=== PATIENT | female | born 1990 | race Caucasian/White ===

== ENCOUNTER → 2019-10-09 13:46 | Outpatient (CLI) | payer BC, SELFPAY ==
--- NOTE | ~2019-10-09 | US_ITS ---
EXAMINATION: US OB transvaginal DATE: 10/09/2019 14:28 INDICATION: First trimester dating TECHNIQUE: Real-time pelvic transabdominal and transvaginal ultrasound was performed. COMPARISON: None. FINDINGS: The uterus measures 9.5 x 5.2 x 4.7 cm. There is an intrauterine gestational sac. The mean sac diameter measures 7 mm. A yolk sac is identified. The pole is not yet identified, likely d ue to early gestation. The right ovary measures 3.4 x 1.8 x 4.0 cm. The left ovary measures 4.6 x 3.1 x 4.8 cm and contains a 3.2 cm cyst with thin internal septation. There is normal vascular flow in t he ovaries. There is no free fluid in the pelvis. IMPRESSION: 1. Intrauterine gestational sac with a mean sac diameter of 7 mm. pole not identified, likely d ue to early . Reviewed, dictated and finalized at location A. IMPRESSION: 1. Intrauterine gestational sac with a mean sac diameter of 7 mm. pole no t identified, likely due to early .
== END ==
PROVIDERS: PCP Family Medicine; Visit Provider Obstetrics & Gynecology Gynecology
DX: O26.841 Uterine size-date discrepancy, first trimester (principal)
CPT/HCPCS: 76817

== ENCOUNTER → 2019-10-31 12:31 | Outpatient (CLI) | payer BC, SELFPAY ==
--- NOTE | ~2019-10-31 | US_ITS ---
EXAMINATION: US OB <= 14 weeks fetus DATE: 10/31/2019 13:00 INDICATION: Gestational dating TECHNIQUE: Real-time transabdominal obstetric ultrasound. FINDINGS: 10/09/2019 The uterus measures 11.1 x 6.5 x 7.7 cm. There is an intrauterine gestational sac, with pole id entified. The crown rump length measures 1.85 cm, which correlates with a estimated gestational age of 8 weeks 2 days. heart tones are identified measuring 173 BPM. There is a 3.4 cm corpus lut eal cyst of the left ovary. IMPRESSION: 1. SL IUP with an EGA of 8 weeks, 2 days (EDC by current ultrasound of 06/09/2020). 2: 3.4 cm corpus luteal cyst of the left ovary. Reviewed, dictated and finalized at location B. IMPRESSION: 1. SL IUP with an EGA of 8 weeks, 2 days (EDC by current ultrasound of ). 2: 3.4 cm corpus luteal cyst of the left ovary.
== END ==
PROVIDERS: Visit Provider Obstetrics & Gynecology Gynecology
DX: O26.841 Uterine size-date discrepancy, first trimester (principal); Z3A.08 8 weeks gestation of pregnancy; N83.12 Corpus luteum cyst of left ovary
CPT/HCPCS: 76801

== ENCOUNTER → 2020-01-09 15:14 | Outpatient (CLI) | payer BC, SELFPAY ==
--- NOTE | ~2020-01-09 | US_ITS ---
EXAMINATION: US OB >= 14 weeks Fetus DATE: 01/09/2020 15:58 INDICATION: Second trimester anatomic survey TECHNIQUE: Real-time ultrasound of the pelvis was performed. COMPARISON: 10/31/2019 FINDINGS: There is a single living fetus in breech presentation. The placenta is anterior and 3.6 cm from the i nternal cervical os. heart rate is 141 beats per minute (bpm). cardiac activity and feta l movement are noted. The amniotic fluid index is subjectively normal. The following anatomy was identified as normal: 4 chamber heart 3 vessel cord cord insertion kidneys urinary bladder stomach spine diaphragm ventricles cisterna magna cerebellum The following biometric data were obtained: Biparietal diameter (BPD): 4.3 cm; head circumference (HC): 16.0 cm; abdominal circumference (AC): 13 .0 cm; femur length (FL): 2.6 cm. These measurements are concordant. Estimated weight is 241 g +/- 36 g, which correlates with the 57th percentile when 06/09/2020 is used as estimated date of delivery. As single measurements, these parameters are each equal to the following estimated gestational ages w ith ranges of +/- 2 standard deviations: BPD: 19 weeks 1 days ( 17 weeks 3 days - 20 weeks 6 days). HC: 18 weeks 6 days ( 17 weeks 3 days - 20 weeks 3 days). AC: 18 weeks 4 days ( 16 weeks 4 days - 20 weeks 4 days). FL: 18 weeks 1 days ( 16 weeks 6 days - 19 weeks 4 days). estimated gestational age based solely on measurements from this exam is 18 weeks 5 days +/- 1 weeks 2 days. IMPRESSION: 1. Single living fetus in breech presentation. 2. Estimated weight is 241 g +/- 36 g, which correlates with the 57th percentile when 06/09/2020 is used as estimated date of delivery. Reviewed, dictated and finalized at location A. IMPRESSION: 1. Single living fetus in breech presentation. 2. Estimated weight is 241 g +/- 36 g, which correlates with the 57th per centile when 06/09/2020 is used as estimated date of delivery.
== END ==
PROVIDERS: Visit Provider Obstetrics & Gynecology
DX: Z34.92 Encounter for supervision of normal pregnancy, unspecified, second trimester (principal); Z3A.18 18 weeks gestation of pregnancy
CPT/HCPCS: 76805

== ENCOUNTER 2020-01-22 19:48 | Observation (INO) | payer BC, SELFPAY ==
[2020-01-22 19:38] VITALS: BP 148/81; PULSE 93; RESP 20; TEMP 36.9; O2SAT 100
--- NOTE | 2020-01-22 19:47 | PC.NURSE ---
Pt was transported to OB department via wheelchair. Report given to ZARIA Mattson
--- NOTE | 2020-01-22 19:48 | OBADM ---
This patient, More Rush, admitted to the OB room OB Post 117 for observation. Patient/family oriented to hospital policies and general routines including ID bracelet, bed and alarms, visiting hours, pain management, procedures, bathroom and other care routines, personal items, smoking policy, room service/diet, and visiting hours. Patient/Family are encouraged to report perceived risks to care and to ask questions if they do not understand what they are told or what they should do.
[2020-01-22 20:01] VITALS: BP 137/89; PULSE 87; TEMP 36.8
[2020-01-22 20:15] VITALS: BP 119/77; PULSE 74
[2020-01-22 20:30] VITALS: BP 133/85; PULSE 84
[2020-01-22 20:43] LABS: Basophils Percent Auto 0.3 % (0.2-1.2); Eosinophils Absolute Auto 0.2 K/mm3 (0-0.3); Eosinophils Percent Auto 1.7 % (0-4.4); Hematocrit 30.2 % (37.0-47.0); Hemoglobin 10.5 g/dL (12.0-15.0); Immature Granulocyte Absolute 0.13 K/mm3 (0.00-0.031); Immature Granulocyte Percent A 1.2 % (0-0.5); Lymphocytes Absolute Auto 1.71 K/mm3 (0.9-3.2); Lymphocytes Percent Auto 16.2 % (18.3-44.2); Mean Corpuscular HGB Conc 34.8 g/dl (32-36); Mean Corpuscular Hemoglobin 30.3 pg (26-34); Mean Platelet Volume 9.9 fl (7.4-10.4); Monocytes Absolute Auto 0.6 K/mm3 (0.1-0.6); Monocytes Percent Auto 5.9 % (2.6-8.5); Neutrophils Absolute Auto 7.9 K/mm3 (1.3-6.7); Neutrophils Percent Auto 74.7 % (45.5-73.1); Platelet Count Result 213 k/mm3 (150-375); Red Blood Count 3.47 M/mm3 (4.2-5.4); Red Cell Distribution Width 13.7 % (11.5-14.5); White Blood Count 10.5 K/mm3 (4.5-10.0)
[2020-01-22 20:45] VITALS: BP 128/73; PULSE 73
[2020-01-22 20:57] LABS: Alanine Aminotransferase 14 U/L (4-35); Albumin Level 3.4 g/dL (3.5-5.1); Alkaline Phosphatase 55 U/L (38-126); Anion Gap 9 mmol/L (8-16); Aspartate Amino Transferase 17 U/L (14-36); Bilirubin,Total 0.1 mg/dL (0.2-1.3); Blood Urea Nitrogen 11 mg/dL (7-17); Calcium 8.5 mg/dL (8.4-10.2); Carbon Dioxide 23 mmol/L (22-30); Chloride 105 mmol/L (98-107); Estimated CRCL calculation 99 ml/min; Estimated Glomerular Filt Rate > 60; Glucose 102 mg/dL (65-105); Potassium 3.6 mmol/L (3.4-5.0); Sodium 137 mmol/L (137-145)
[2020-01-22 20:59] VITALS: BMI 28.3
[2020-01-22 21:00] VITALS: BP 117/79; PULSE 69
--- NOTE | 2020-01-22 21:34 | PC.NURSE ---
2030 - pt declined tylenol at this time.
--- NOTE | 2020-02-13 15:54 | P.PNOB_ITS ---
OB - Triage/Final Diagnosis Evaluation Laboratory results: Laboratory Tests 01/22/20 01/22/20 20:36 20:36 WBC 10.5 H RBC 3.47 L Hgb 10.5 L Hct 30.2 L MCV 87.0 MCH 30.3 MCHC 34.8 RDW 13.7 Plt Count 213 MPV 9.9 Immature Gran % (Auto) 1.2 H Neut % (Auto) 74.7 H Lymph % (Auto) 16.2 L [place] % (Auto) 5.9 Eos % (Auto) 1.7 Baso % (Auto) 0.3 Lymph # (Auto) 1.71 [place] # (Auto) 0.6 Eos # (Auto) 0.2 Baso # (Auto) 0.0 Abs Immat Gran (auto) 0.13 H Absolute Neuts (auto) 7.9 H Absolute Nucleated RBC 0.0 Nucleated RBC % 0.0 Sodium 137 Potassium 3.6 Chloride 105 Carbon Dioxide 23 Anion Gap 9 BUN 11 Creatinine 0.70 Estim Creat Clear Calc 99 Estimated GFR > 60 Glucose 102 Calcium 8.5 Total Bilirubin 0.1 L AST 17 ALT 14 Alkaline Phosphatase 55 Total Protein 7.0 Albumin 3.4 L Final Diagnosis (1) Musculoskeletal pain: Code(s): M79.18 - Myalgia, other site Status: Acute
== END 2020-01-22 21:30 | disposition home or self-care (01) ==
PROVIDERS: Admitting Provider Obstetrics & Gynecology; PCP Family Medicine; Visit Provider Obstetrics & Gynecology
DX: O26.892 Other specified pregnancy related conditions, second trimester (principal); M79.18 Myalgia, other site; Z3A.20 20 weeks gestation of pregnancy
CPT/HCPCS: 36415; 80053; 85025; G0378; G0379

== ENCOUNTER 2020-05-29 05:04 | Inpatient (IN) | payer BC, SELFPAY ==
[2020-05-29] VITALS (85 sets, daily range): BP systolic 102–139; BP diastolic 57–117; PULSE 54–194; RESP 18; TEMP 36.6–36.8; O2SAT 80–100; BMI 36.7
--- NOTE | 2020-05-29 05:25 | LDADM ---
This patient, More Rush, was admitted to Labor/Delivery/Recovery 105 on 05/29/20 at 05:04. Plans for labor, pain management and were discussed with patient. Patient/family oriented to hospital policies and general routines including ID bracelet, bed and alarms, visiting hours, pain management, procedures, bathroom and other care routines, personal items, smoking policy, room service/diet and guest tray routines, security routines, and visiting hours. Patient/Family are encouraged to report perceived risks to care and to ask questions if they do not understand what they are told or what they should do. See OBIX for further documentation.
[2020-05-29] MEDS: LACTATED RINGERS 1,000 ML 125 ML IV CONT ×2 (05:42→10:39)
[2020-05-29] MEDS: AMPICILLIN 2 GM/NS 100 ML 2 GM/100 ML BAG IVPB (05:42)
[2020-05-29] MEDS: OXYTOCIN 30 UNITS/NS 500 ML 30 UNITS/500 ML BAG IV CONT (05:43)
[2020-05-29 05:51] LABS: Basophils Percent Auto 0.3 % (0.2-1.2); Eosinophils Absolute Auto 0.1 K/mm3 (0-0.3); Eosinophils Percent Auto 0.8 % (0-4.4); Hematocrit 32.8 % (37.0-47.0); Hemoglobin 11.4 g/dL (12.0-15.0); Immature Granulocyte Absolute 0.14 K/mm3 (0.00-0.031); Immature Granulocyte Percent A 1.5 % (0-0.5); Lymphocytes Absolute Auto 1.17 K/mm3 (0.9-3.2); Lymphocytes Percent Auto 12.6 % (18.3-44.2); Mean Corpuscular HGB Conc 34.8 g/dl (32-36); Mean Corpuscular Hemoglobin 29.4 pg (26-34); Mean Corpuscular Volume 84.5 fl (80-100); Mean Platelet Volume 10.8 fl (7.4-10.4); Monocytes Absolute Auto 0.4 K/mm3 (0.1-0.6); Monocytes Percent Auto 4.4 % (2.6-8.5); Neutrophils Absolute Auto 7.5 K/mm3 (1.3-6.7); Neutrophils Percent Auto 80.4 % (45.5-73.1); Platelet Count Result 177 k/mm3 (150-375); Red Blood Count 3.88 M/mm3 (4.2-5.4); Red Cell Distribution Width 14.5 % (11.5-14.5); White Blood Count 9.3 K/mm3 (4.5-10.0)
--- NOTE | 2020-05-29 06:42 | WPDANESEPP ---
Anes - Eval Pre Procedure Procedure: Labor epidural Date/Time: 05/29/20 06:42 Surgeon: merly Preop Diagnosis: Abd pain with contractions Pre Op Diagnosis: IOL Patient Data Age: 30 Gender: F Height: 5 ft 3 in Weight: 94 kg Last Vital Signs Pulse 80 05/29/20 06:30 BP 129/77 05/29/20 06:30 Allergies Allergy/AdvReac Type Severity Reaction Status Date / Time No Known Allergies Allergy Verified 05/15/20 12:35 Home Medications Medication Instructions Recorded Confirmed Type aspirin [Adult Low Dose Aspirin] 81 mg PO DAILY 05/15/20 05/15/20 History ergocalciferol (vitamin D2) 1,250 mcg PO WEEKLY 05/15/20 05/15/20 History [Vitamin D2] prenat.vits,anatoliy,jiu-urge-puqpr 1 tablet PO DAILY 05/15/20 05/15/20 History [ #2] Laboratory Tests 05/29/20 05/29/20 05:40 05:40 WBC 9.3 K/mm3 K/mm3 (4.5-10.0) RBC 3.88 M/mm3 L M/mm3 (4.2-5.4) Hgb 11.4 g/dL L g/dL (12.0-15.0) Hct 32.8 % L % (37.0-47.0) MCV 84.5 fl fl (80-100) MCH 29.4 pg pg (26-34) MCHC 34.8 g/dl g/dl (32-36) RDW 14.5 % % (11.5-14.5) Plt Count 177 k/mm3 k/mm3 (150-375) MPV 10.8 fl H fl (7.4-10.4) Immature Gran % (Auto) 1.5 % H % (0-0.5) Neut % (Auto) 80.4 % H % (45.5-73.1) Lymph % (Auto) 12.6 % L % (18.3-44.2) [place] % (Auto) 4.4 % % (2.6-8.5) Eos % (Auto) 0.8 % % (0-4.4) Baso % (Auto) 0.3 % % (0.2-1.2) Lymph # (Auto) 1.17 K/mm3 K/mm3 (0.9-3.2) [place] # (Auto) 0.4 K/mm3 K/mm3 (0.1-0.6) Eos # (Auto) 0.1 K/mm3 K/mm3 (0-0.3) Baso # (Auto) 0.0 K/mm3 K/mm3 (0.0-0.1) Abs Immat Gran (auto) 0.14 K/mm3 H K/mm3 (0.00-0.031) Absolute Neuts (auto) 7.5 K/mm3 H K/mm3 (1.3-6.7) Absolute Nucleated RBC 0.0 K/mm3 K/mm3 (0.0-0.012) Nucleated RBC % 0.0 % % (0.0-0.2) RPR Pending Patient hx anesthesia problems: none Family hx anesthesia problems: none [facility] Past Medical History Medical History (Updated 05/29/20 @ 06:44 by Jayden Cooper CRNA) Gestational HTN Musculoskeletal pain Overweight (BMI 25.0-29.9) and not yet delivered Psoriasiform dermatitis Family History Family History Grandparent Type 2 diabetes mellitus Congestive heart failure Mother Hypertension Social History Social History Smoking status: Never smoker Second hand tobacco smoke exposure: No Substance use: never Spiritual care concerns: No Exam Day of Procedure 05/29/20 06:42 Patient weight: overweight Airway: Mallampati scale class II Neurological: alert and oriented
--- NOTE | 2020-05-29 09:21 | WPDOBADMIT ---
Obstetrics - Admit Note Admission Note: record reviewed. No pertinent additions to the history and/or any subsequent changes in the physical findings that are not consistent with the expected course of the were found. Additions to the history and/or subsequent changes in the physical findings follow. None.Here at 39 wks for MIL. cervix now 2/-2 AROM with clear fluid. FHTs reactive
[2020-05-29] MEDS: AMPICILLIN 1 GM/NS 50 ML 1 GM/50 ML BAG IVPB ×2 (09:45→13:40)
--- NOTE | 2020-05-29 15:49 | PM.OBPRVD ---
OB - Delivery Note Procedure Delivery date: 05/29/20 Procedure: events: Labor Induction Intrapartal events: None Induction method: AROM and per pitocin protocol Delivery monitor: external FHT and external uterine Route of delivery: Laceration Description: Periurethral and Perineal - 2nd Degree Delivery repair: vicryl (3-0) Specimen: No Quantitative Blood Loss (ml): 250 Anesthesia type: Epidural Disposition: floor Baby Date of : 05/29/20 Weeks of gestation at delivery: 39 gender: Male Weight (pounds): 7 Weight (ounces): 4 presentation: vertex position: Left Occiput Anterior Placenta delivery description: Spontaneous cord vessel description: 3 Vessels score one minute: 8 score five minutes: 9
--- NOTE | 2020-05-29 15:51 | PM.OBDSVD ---
DS: Admitting Diagnosis Admitting Diagnosis Admitting Diagnosis: IUP 39 wks for [facility] DS: Discharge Diagnosis Discharge Diagnosis (1) 39 weeks gestation of : Code(s): Z3A.39 - 39 weeks gestation of Status: Acute (2) (normal spontaneous vaginal delivery): Code(s): O80 - Encounter for full-term uncomplicated delivery Status: Acute OB - DS: Summary OB Procedures : Ultrasound OB Procedures Intrapartum: Spontaneous Vag Delivery OB Procedures: : None Peripartum Data Delivery Method: Natural Vaginal Laceration Description: Periurethral and Perineal - 2nd Degree complications: none Status at Discharge Functional status at discharge: independent ambulation Overall status at discharge: patient is progressing back to baseline Time Spent with Patient Time attestation: Total time spent providing and/or coordinating discharge services: DS: Data Data Completed and Pending Labs on day of discharge: Labs from last 24 hours 05/29/20 05/29/20 05/29/20 05:40 05:40 05:40 WBC 9.3 RBC 3.88 L Hgb 11.4 L Hct 32.8 L MCV 84.5 MCH 29.4 MCHC 34.8 RDW 14.5 Plt Count 177 MPV 10.8 H Immature Gran % (Auto) 1.5 H Neut % (Auto) 80.4 H Lymph % (Auto) 12.6 L [place] % (Auto) 4.4 Eos % (Auto) 0.8 Baso % (Auto) 0.3 Lymph # (Auto) 1.17 [place] # (Auto) 0.4 Eos # (Auto) 0.1 Baso # (Auto) 0.0 Abs Immat Gran (auto) 0.14 H Absolute Neuts (auto) 7.5 H Absolute Nucleated RBC 0.0 Nucleated RBC % 0.0 RPR Pending Blood Type O Positive Antibody Screen Negative Discharge Plan Discharge Attending physician on discharge: Arlene Best Discharging Clinician: Arlene Best Anticipated Discharge Date/Time: 05/31/20 15:52 Patient Disposition: Home, Self-Care Activity: may shower and pelvic rest Diet: regular Patient Instructions: Antibiotic Form Stand Alone Forms: General Discharge Information Follow-up/Referrals: Arlene Best MD [Physician] - 6 Weeks Discharge Medications: New norethindrone-e.estradiol-iron [ 05/05 (28)] 1 mg-20 mcg (21)/75 mg (7) tablet 1 tablet PO DAILY Qty: 84 RF: 1 Continued ergocalciferol (vitamin D2) [Vitamin D2] 1,250 mcg (50,000 unit) Capsule 1,250 mcg PO WEEKLY RF: 0 Discontinued Adult Low Dose Aspirin 81 mg Tablet 81 mg PO DAILY RF: 0 #2 Tablet 1 tablet PO DAILY RF: 0 Date of admission: 05/29/20 05:04 Primary Care Provider: Bushra Bailey Admitting Provider: Arlene Best Attending physician on admission: Arlene Best Condition: Stable
[2020-05-29] MEDS: OXYTOCIN 30 UNITS/NS 500 ML 30 UNITS/500 ML BAG 125 UNITS IV CONT (15:54)
[2020-05-29] MEDS: IBUPROFEN 600 MG TABLET PO (17:16)
[2020-05-29] MEDS: WITCH HAZEL 40 PADS 1 PAD TOPICAL (17:16)
[2020-05-29] MEDS: BENZOCAINE 20% AER SPR (*SP) 56 GM CAN 1 SPRAY TOPICAL (17:16)
[2020-05-29] MEDS: ACETAMINOPHEN 325 MG TABLET 650 MG PO ×2 (18:18→22:20)
--- NOTE | 2020-05-29 19:05 | PC.NURSE ---
05/29/20 at 1839. Patient transferred to post room # 282 in wheelchair. Pt transferred by labor nurse to bed from wheelchair. Support person present. Oriented to unit, room, information board, rooming in, admission packet and security measures. Patient verbalizes understanding.
[2020-05-29] MEDS: DOCUSATE SODIUM 100 MG CAPSULE PO (23:37)
[2020-05-30] MEDS: IBUPROFEN 600 MG TABLET PO ×2 (04:30→10:30)
[2020-05-30 04:51] LABS: Hematocrit 30.4 % (37.0-47.0); Hemoglobin 10.5 g/dL (12.0-15.0)
--- NOTE | 2020-05-30 09:42 | WPDANLDPN2 ---
Anes-Prog Note L&D Date/Time: 05/30/20 09:42 Comfortable throughout: labor and delivery Neuraxial method: epidural Epidural/Spinal procedure site: clean & non-tender Neuro status: Neuro function grossly intact. Cardiovascular status: normal Respiratory status: normal Airway patency: baseline Mental status: baseline Post-Op hydration status: normal Vital Signs: Last Vital Signs Temp 36.8 C 05/29/20 18:52 Pulse 73 05/29/20 18:52 Resp 18 05/29/20 18:52 BP 125/69 05/29/20 18:52 Pulse Ox 100 05/29/20 18:52 Pain score (VAS): 0 I/O: Intake & Output 05/29/20 05/30/20 05/30/20 23:59 07:59 15:59 Output Total 400 Balance -400 Post-procedural complaints: none Patient feedback: Patient satisfied with anesthetic care.
--- NOTE | 2020-05-30 09:44 | PM.OBPNVD ---
OB - PN: Subj Subjective Date/time seen: 05/30/20 09:44 Patient comments: no complaints and pain well controlled baby status: doing well [place] feeding status: exclusively bottle feeding OB - PN: Obj Data Labs CBC & Chem 7: 05/30/20 04:34 Labs: Laboratory Results - last 24 hr 05/30/20 04:34 Hgb 10.5 L Hct 30.4 L OB - PN A/P Plan day: 1 Plan: routine care, discharge home, follow up 6 weeks and other (05/05 for bc) Time Spent With Patient Time: Total time spent is greater than 50% in coordination of care (as documented) at patient's floor/unit and/or counseling patient: Exam : Bimanual exam- vagina & uterus: other (Uterus firm, nt @U)
[2020-05-30 10:30] VITALS: BP 117/71; PULSE 66; RESP 12; TEMP 36.5; O2SAT 98
[2020-05-30] MEDS: DOCUSATE SODIUM 100 MG CAPSULE PO (10:30)
[2020-05-31 08:49] LABS: Rapid Plasma Reagin Non-Reactive (NonReactive)
[2020-05-31 08:58] VITALS: BP 129/81; PULSE 83; RESP 18; TEMP 36.6; O2SAT 100
== END 2020-05-30 18:29 | disposition home or self-care (01) | DRG 807 ==
LOC: ANHLDR 15:52 → ANHOB2 18:56
PROVIDERS: Admitting Provider Obstetrics & Gynecology Gynecology; PCP Family Medicine; Visit Provider Obstetrics & Gynecology Gynecology
DX: O99.824 Streptococcus B carrier state complicating childbirth (principal); Z37.0 Single live birth; Z3A.39 39 weeks gestation of pregnancy; O70.1 Second degree perineal laceration during delivery; O99.72 Diseases of the skin and subcutaneous tissue complicating childbirth; L40.9 Psoriasis, unspecified; O71.82 Other specified trauma to perineum and vulva
CPT/HCPCS: 36415; 85014; 85018; 85025; 86592; 86850; 86900; 86901; A9270; J0290; J2590; J2795; J7120

== ENCOUNTER 2020-09-18 11:25 | Emergency (ER) | payer BC, SELFPAY ==
--- NOTE | ~2020-09-18 | US_ITS ---
US pelvic complete w TV DATE: 09/18/2020 15:15 INDICATION: Pelvic pain, rectal pain TECHNIQUE: Real-time imaging via transabdominal and transvaginal approaches COMPARISON: 09/18/2020 CT abdomen pelvis FINDINGS: The uterus measures 8.5 cm height, 5.2 cm transverse and 3.9 cm AP dimension. The central e ndometrial echo complex measures 8.6 mm AP dimension. Right ovary measures 4.3 x 3.4 x 3.7 cm, with vascular flow. There is an approximately 2.4 x 3.2 cm r ight ovarian cyst.. The left ovary measures 3.6 x 2.2 x 1.2 cm, with vascular flow. Small amount of free fluid in the cul-de-sac. IMPRESSION: 3.2 cm right ovarian cyst Minimal free fluid in the cul-de-sac Reviewed, dictated and finalized at Location A. Reviewed, dictated and finalized at location A.
--- NOTE | ~2020-09-18 | CT_ITS ---
EXAMINATION: CT abdomen pelvis w con EXAM DATE: 09/18/2020 12:40 INDICATION: Lower abdominal pain, rectal pain. TECHNIQUE: Spiral CT of the abdomen and pelvis was performed following intravenous injection of 100 m L Omnipaque 350. Axial, coronal and sagittal images of the abdomen and pelvis were reviewed. The do se-length product (DLP) for this examination was 755.25 mGy-cm. The exposure was tailored according to patient size (auto mA exposure control), and iterative reconstruction (ASIR) was used as additiona l dose reduction technique. There is no prior study for comparison. FINDINGS: The liver, spleen, adrenal glands and pancreas are unremarkable. There are gallstones with in an otherwise unremarkable gallbladder. No evidence of obstructive biliary disease. Portal and sp lenic veins are patent. Kidneys enhance symmetrically. There is no hydronephrosis. The uterus is unremarkable. The bladder is unremarkable. There is no retroperitoneal or pelvic lymphadenopathy. The appendix is normal. The stomach and small bowel are unremarkable. There is expected amount of c olonic stool. No free intraperitoneal gas. The heart is normal in size. There are no pericardial or pleural effusions. The lung bases are unremarkable. The bones are unremarkable. IMPRESSION: 1. No acute intra-abdominal findings. Reviewed, dictated and finalized at location A.
[2020-09-18 11:31] VITALS: BP 161/88; PULSE 88; RESP 20; TEMP 36.8; O2SAT 100
--- NOTE | 2020-09-18 11:51 | ED.ABDPAIN ---
HPI - Abdominal Pain General Chief Complaint: Abdominal Pain Stated Complaint: side pain Time Seen by Provider: 09/18/20 11:36 Source: patient and RN notes reviewed Mode of arrival: ambulatory Limitations: no limitations History of Present Illness HPI narrative: This is a 30 year old female who presents for evaluation of lower abdominal pain. She developed lower abdominal pain on . She describes her pain has constant pressure. She also reports feeling sharp rectal pain when she tries to have a bowel movement. Her last bowel movement was yesterday. She denies associated nausea, vomiting, rectal discharge, vaginal discharge, fever or chills. She also denies urinary complaints. Related Data Allergies Allergy/AdvReac Type Severity Reaction Status Date / Time No Known Allergies Allergy Verified 09/18/20 11:35 Review of Systems Review of Systems: All systems reviewed & are unremarkable except as noted in HPI and below Constitutional: Constitutional: Denies chills and Denies fever(s) Gastrointestinal: Gastrointestinal: Reports abdominal pain, Denies diarrhea, Denies nausea and Denies vomiting Genitourinary: Genitourinary: Denies hematuria, Denies nocturia, Denies genital lesions, Denies dysuria and Denies vaginal discharge [facility] Past Medical History Medical History Gestational HTN Musculoskeletal pain Overweight (BMI 25.0-29.9) Psoriasiform dermatitis Family History Family History Grandparent Congestive heart failure Hypertension Mother Hypertension Grandparent Diabetes mellitus Social History Social History Smoking status: Never smoker Second hand tobacco smoke exposure: No Substance use: never Gender identity (if verbalized by the patient): Female Spiritual care concerns: No Exam Const: General: no acute distress and alert Orientation/consciousness: patient oriented x3 Resp: Effort & Inspection: normal respiratory effort and no retractions Auscultation: clear to auscultation bilaterally Cardio: Rate: regular rate Rhythm: regular rhythm Heart sounds: no murmurs GI: GI Palp: Yes Soft to palpation, Yes Tenderness to palpation present (GI), No Guarding due to palpation present (GI) and No Rigid due to palpation Auscultation: normal bowel sounds Rectal Exam: No fecal impaction and hemorrhoids : Speculum Exam - Vagina: abnormal vaginal discharge yellow Speculum Exam - Cervix: Cervical os closed Bimanual exam- vagina & uterus: cervical motion tenderness Skin: General skin exam: normal color Rashes: no rashes Neuro: General: patient oriented x3, moves all extremities and CN's II-XI intact bilaterally Psych: Mental Status: mental status grossly normal Affect: normal affect Course Reevaluation(s) Reevaluation #1: PAtient reports pain has improved. she was found to have copious vaginal discharge with CMT. She will be treated for PID and ovarian cyst. She will follow up with her [employer] on Sunday Date: 09/18/20 Time: 16:44 Vital Signs Vital signs: Vital Signs Temperature 98.2 F 09/18/20 11:31 Pulse Rate 88 09/18/20 11:31 Respiratory Rate 20 09/18/20 11:31 Blood Pressure 161/88 H 09/18/20 11:31 Pulse Oximetry 100 09/18/20 11:31 Temperature 98.2 F 09/18/20 11:31 Pulse Rate 70 09/18/20 16:59 Respiratory Rate 20 09/18/20 16:59 Blood Pressure 148/88 H 09/18/20 16:59 Pulse Oximetry 99 09/18/20 16:59 MDM - Abdominal Pain Lab Data Attestation: I reviewed the patient's lab results. Result diagrams: 09/18/20 12:04 09/18/20 12:04 Labs: Lab Results 09/18/20 09/18/20 09/18/20 Range/Units 12:04 12:04 12:04 WBC 7.1 (4.5-10.0) K/mm3 RBC 4.32 (4.2-5.4) M/mm3 Hgb 12.4 (12.0-15.0) g/dL Hct 37.0 (37.0-47.0) % MCV
[2020-09-18] MEDS: ONDANSETRON INJ 4 MG/2 ML VIAL IV PUSH (12:02)
[2020-09-18] MEDS: HYDROmorphone HCL INJ (*CRX) 1 MG/ML SYR 0.5 MG IV PUSH (12:02)
[2020-09-18 12:12] LABS: Basophils Percent Auto 0.4 % (0.2-1.2); Eosinophils Absolute Auto 0.2 K/mm3 (0-0.3); Eosinophils Percent Auto 2.8 % (0-4.4); Hemoglobin 12.4 g/dL (12.0-15.0); Immature Granulocyte Absolute 0.02 K/mm3 (0.00-0.031); Immature Granulocyte Percent A 0.3 % (0-0.5); Lymphocytes Absolute Auto 1.62 K/mm3 (0.9-3.2); Lymphocytes Percent Auto 22.8 % (18.3-44.2); Mean Corpuscular HGB Conc 33.5 g/dl (32-36); Mean Corpuscular Hemoglobin 28.7 pg (26-34); Mean Corpuscular Volume 85.6 fl (80-100); Monocytes Absolute Auto 0.5 K/mm3 (0.1-0.6); Monocytes Percent Auto 6.9 % (2.6-8.5); Neutrophils Absolute Auto 4.7 K/mm3 (1.3-6.7); Neutrophils Percent Auto 66.8 % (45.5-73.1); Platelet Count Result 243 k/mm3 (150-375); Red Blood Count 4.32 M/mm3 (4.2-5.4); Red Cell Distribution Width 13.4 % (11.5-14.5); White Blood Count 7.1 K/mm3 (4.5-10.0)
[2020-09-18 12:18] LABS: Add Urine Microscopic? YES; Appearance Urine Cloudy (Clear); Bacteria Urine Trace /hpf; Bilirubin Urine Negative (Negative); Blood Urine Negative (Negative); Color Urine Straw (Yellow); Glucose Urine UA Negative (Negative); Ketones Urine Negative (Negative); Leukocyte Esterase Ur 2+ LEU/UL (Negative); Mucus Urine Rare /lpf; Nitrate Urine Negative (Negative); Protein Urine Negative (Negative); RBC Urine 0-2 /hpf (0-2); Specific Grav Ur 1.008 (1.001-1.035); Squamous Epithelial Cell Urine Many /hpf (Few); Urobilinogen Urine Negative mg/dL (<2.0); WBC Urine 0-3 /hpf
[2020-09-18 12:21] LABS: Alanine Aminotransferase 11 U/L (4-35); Albumin Level 3.8 g/dL (3.5-5.1); Alkaline Phosphatase 49 U/L (38-126); Anion Gap 8 mmol/L (8-16); Aspartate Amino Transferase 21 U/L (14-36); Bilirubin,Total 0.3 mg/dL (0.2-1.3); Blood Urea Nitrogen 15 mg/dL (7-17); Calcium 8.8 mg/dL (8.4-10.2); Carbon Dioxide 22 mmol/L (22-30); Chloride 107 mmol/L (98-107); Estimated CRCL calculation 82 ml/min; Estimated Glomerular Filt Rate > 60; Glucose 94 mg/dL (65-105); Lipase 44 U/L (23-300); Potassium 3.9 mmol/L (3.4-5.0); Sodium 137 mmol/L (137-145)
[2020-09-18] MEDS: cefTRIAXone 1 GM VIAL 0.5 GM IM (14:13)
[2020-09-18 14:15] VITALS: BP 151/90; PULSE 67; RESP 20; O2SAT 100
[2020-09-18 16:59] VITALS: BP 148/88; PULSE 70; RESP 20; O2SAT 99
== END 2020-09-18 17:01 | disposition home or self-care (01) ==
PROVIDERS: Emergency Provider General Practice; PCP Family Medicine
DX: N73.0 Acute parametritis and pelvic cellulitis (principal); N83.201 Unspecified ovarian cyst, right side; E66.3 Overweight; Z68.32 Body mass index [BMI] 32.0-32.9, adult
CPT/HCPCS: 36415; 74177; 76830; 76856; 80053; 81001; 81025; 83690; 85025; 87070; 87147; 87491; 87591; 87808; 96372; 96374; 99284; J0696; J1170; J2405; Q9967

== ENCOUNTER 2020-12-28 01:47 | Emergency (ER) | payer BC, SELFPAY ==
--- NOTE | ~2020-12-28 | CT_ITS ---
EXAMINATION: CTA chest PE protocol DATE: 12/28/2020 03:58 INDICATION: Shortness of breath, COVID 19 positive TECHNIQUE: Computed tomography angiography (CTA) of the chest was performed with 100 mL Omnipaque-350 intravenous contrast timed to evaluate the pulmonary arteries. Coronal maximum intensity projection 3D-reconstructions were created by the technologist. The dose-length product (DLP) was 357.62 mGy-cm. Automated exposure control and iterative reconstruction technique were employed. COMPARISON: None. FINDINGS: Respiratory motion artifact slightly limits the examination. The pulmonary arteries are wel l-opacified. No pulmonary embolism is identified. There is mild dependent atelectasis. The lungs are free of focal airspace opacities. There is no pleural effusion or pneumothorax. No pathologically enl arged thoracic lymph nodes are identified. The heart size is normal. Stones are present in the nondis tended gallbladder. IMPRESSION: 1. No pulmonary embolism or acute cardiopulmonary abnormality. 2. Cholelithiasis. Reviewed, dictated and finalized at location A.
[2020-12-28 01:51] VITALS: BP 137/88; PULSE 100; RESP 16; TEMP 35.7; O2SAT 100
--- NOTE | 2020-12-28 02:29 | ECG_ITS ---
Measurements Intervals Theodore Rate: 87 P: 50 [place]: 128 QRS: 17 QRSD: 90 T: 44 QT: 347 QTc: 419 Interpretive Statements SINUS RHYTHM BASELINE ARTIFACT- I, II, AVR, AVF NORMAL ECG Electronically Signed On 12-28-2020 6:11:26 CDT by Yves Saldana D.O.
--- NOTE | 2020-12-28 02:46 | ED.GENADULT ---
HPI - General Adult General Chief complaint: Shortness of Breath/Dyspnea Stated complaint: covid + SOB and HTN Time Seen by Provider: 12/28/20 02:20 History of Present Illness HPI narrative: Patient 30-year-old female presents the emergency department with chief complaint of shortness of breath. The patient reports she was diagnosed with COVID-19 on of last week the patient reports that she started having some body aches and some cough and reports that this evening she suddenly had sudden onset of some shortness of breath patient states is improved since he arrived in the emergency department reports that her fevers have been under control denies vomiting denies diarrhea Related Data Allergies Allergy/AdvReac Type Severity Reaction Status Date / Time No Known Allergies Allergy Verified 12/28/20 02:09 Review of Systems Review of Systems: A 10 system review of systems was completed on the patient and is negative except for what is stated in the HPI. Nursing and ancillary documentation was reviewed. PMFSH Past Medical History Medical History Gestational HTN Musculoskeletal pain Overweight (BMI 25.0-29.9) Psoriasiform dermatitis Family History Family History Grandparent Congestive heart failure Hypertension Mother Hypertension Grandparent Diabetes mellitus Social History Social History Smoking status: Never smoker Second hand tobacco smoke exposure: No Substance use: never Gender identity (if verbalized by the patient): Female Spiritual care concerns: No Exam Narrative: GENERAL: Well-appearing, well-nourished, and in no acute distress. HEAD: Normocephalic, atraumatic. EYES: PERRLA and EOMI. ENT: Nares clear, no rhinorrhea or epistaxis. Mucous membranes moist. NECK: Supple. CHEST: Clear to auscultation. No respiratory distress. HEART: Regular rate and rhythm. No murmur heard. Normal peripheral pulses. ABDOMEN: Soft, nontender, nondistended, normal active bowel sounds. EXTREMITIES: Normal range of motion. No edema. SKIN: Warm, dry, no rash. NEURO: No focal deficits. Alert and oriented x3. PSYCH: Normal mood and affect. Course Vital Signs Vital signs: Vital Signs Temperature 35.7 C L 12/28/20 01:51 Pulse Rate 100 12/28/20 01:51 Respiratory Rate 16 12/28/20 01:51 Blood Pressure 137/88 12/28/20 01:51 Pulse Oximetry 100 12/28/20 01:51 Temperature 35.7 C L 12/28/20 01:51 Pulse Rate 92 12/28/20 04:23 Respiratory Rate 19 12/28/20 04:23 Blood Pressure 120/67 12/28/20 04:23 Pulse Oximetry 99 12/28/20 04:23 Medical Decision Making Vital Signs Vital Signs: Vital Signs Temperature 35.7 C L 12/28/20 01:51 Pulse Rate 100 12/28/20 01:51 Respiratory Rate 16 12/28/20 01:51 Blood Pressure 137/88 12/28/20 01:51 Pulse Oximetry 100 12/28/20 01:51 Temperature 35.7 C L 12/28/20 01:51 Pulse Rate 92 12/28/20 04:23 Respiratory Rate 19 12/28/20 04:23 Blood Pressure 120/67 12/28/20 04:23 Pulse Oximetry 99 12/28/20 04:23 Lab Data Result diagrams: 12/28/20 02:50 12/28/20 02:50 Labs: Lab Results 12/28/20 12/28/20 12/28/20 Range/Units 02:50 02:50 02:50 WBC 5.3 (4.5-10.0) K/mm3 RBC 4.84 (4.2-5.4) M/mm3 Hgb 14.2 (12.0-15.0) g/dL Hct 41.5 (37.0-47.0) % MCV 85.7 (80-100) fl MCH 29.3 (26-34) pg MCHC 34.2 (32-36) g/dl RDW 12.7 (11.5-14.5) % Plt Count 241 (150-375) k/mm3 MPV 9.5 (7.4-10.4) fl Immature Gran % (Auto) 0.4 (0-0.5) % Neut % (Auto) 62.2 (45.5-73.1) % Lymph % (Auto) 26.3 (18.3-44.2) % [place] % (Auto) 8.1 (2.6-8.5) % Eos % (Auto) 2.6 (0-4.4) % Baso % (Auto) 0.4 (0.2-1.2) % Lymph # (Auto) 1.40 (0.9-3.2) K/mm3 [place] # (Au
[2020-12-28 02:59] LABS: Basophils Percent Auto 0.4 % (0.2-1.2); Eosinophils Absolute Auto 0.1 K/mm3 (0-0.3); Eosinophils Percent Auto 2.6 % (0-4.4); Hematocrit 41.5 % (37.0-47.0); Hemoglobin 14.2 g/dL (12.0-15.0); Immature Granulocyte Absolute 0.02 K/mm3 (0.00-0.031); Immature Granulocyte Percent A 0.4 % (0-0.5); Lymphocytes Percent Auto 26.3 % (18.3-44.2); Mean Corpuscular HGB Conc 34.2 g/dl (32-36); Mean Corpuscular Hemoglobin 29.3 pg (26-34); Mean Corpuscular Volume 85.7 fl (80-100); Mean Platelet Volume 9.5 fl (7.4-10.4); Monocytes Absolute Auto 0.4 K/mm3 (0.1-0.6); Monocytes Percent Auto 8.1 % (2.6-8.5); Neutrophils Absolute Auto 3.3 K/mm3 (1.3-6.7); Neutrophils Percent Auto 62.2 % (45.5-73.1); Platelet Count Result 241 k/mm3 (150-375); Red Blood Count 4.84 M/mm3 (4.2-5.4); Red Cell Distribution Width 12.7 % (11.5-14.5); White Blood Count 5.3 K/mm3 (4.5-10.0)
[2020-12-28 03:08] LABS: Lactic Acid Reflex 0.8 mmol/L (0.7-2.1)
[2020-12-28 03:09] LABS: Alanine Aminotransferase 15 U/L (4-35); Albumin Level 4.1 g/dL (3.5-5.1); Alkaline Phosphatase 79 U/L (38-126); Anion Gap 10 mmol/L (8-16); Aspartate Amino Transferase 22 U/L (14-36); Bilirubin,Total 0.5 mg/dL (0.2-1.3); Blood Urea Nitrogen 17 mg/dL (7-17); Calcium 9.1 mg/dL (8.4-10.2); Carbon Dioxide 21 mmol/L (22-30); Chloride 106 mmol/L (98-107); Estimated CRCL calculation 83 ml/min; Estimated Glomerular Filt Rate > 60; Glucose 111 mg/dL (65-110); Potassium 3.8 mmol/L (3.4-5.0); Sodium 137 mmol/L (137-145)
[2020-12-28 03:17] LABS: INR 0.9; Partial Thromboplastin Time 31.1 SECONDS (22.3-36.8); Prothrombin Time 11.9 Seconds (11.1-14.7)
[2020-12-28 03:21] LABS: NT Pro B Type Natriuretic Pept 55 pg/mL (5-100); Troponin I < 0.012 ng/mL (0.000-0.034)
[2020-12-28] MEDS: ALBUTEROL SULFATE (*SP) INHALER 2 PUFF INHALATION (03:39)
--- NOTE | 2020-12-28 03:39 | PC.NURSE ---
Pt to CT via stretcher at this time.
[2020-12-28 04:00] VITALS: PULSE 91; RESP 16; O2SAT 100
[2020-12-28 04:11] LABS: Add Urine Microscopic? YES; Appearance Urine Cloudy (Clear); Bacteria Urine Trace /hpf; Bilirubin Urine Negative (Negative); Color Urine Yellow (Yellow); Glucose Urine UA Negative (Negative); Ketones Urine Negative (Negative); Leukocyte Esterase Ur 2+ LEU/UL (Negative); Mucus Urine Rare /lpf; Nitrate Urine Negative (Negative); Protein Urine Negative (Negative); RBC Urine 0-2 /hpf (0-2); Specific Grav Ur 1.018 (1.001-1.035); Squamous Epithelial Cell Urine Many /hpf (Few); Urobilinogen Urine Negative mg/dL (<2.0); WBC Urine 16-20 /hpf
[2020-12-28 04:12] LABS: Blood Urine Negative (Negative)
[2020-12-28 04:23] VITALS: BP 120/67; PULSE 92; RESP 19; O2SAT 99
[2020-12-28 04:50] VITALS: PULSE 87; RESP 17; O2SAT 100
== END 2020-12-28 04:51 | disposition home or self-care (01) ==
PROVIDERS: Emergency Provider Emergency Medicine; PCP Family Medicine
DX: U07.1 COVID-19 (principal); R06.00 Dyspnea, unspecified; R52 Pain, unspecified
CPT/HCPCS: 36415; 71275; 80053; 81001; 81025; 83605; 83880; 84484; 85025; 85610; 85730; 87086; 87088; 87147; 93005; 99284; A9270; Q9967

== ENCOUNTER → 2021-08-16 14:50 | Outpatient (CLI) | payer BC, SELFPAY ==
--- NOTE | ~2021-08-16 | US_ITS ---
US breast RT limited DATE: 08/16/2021 15:05 INDICATION: Breast pain near junction of the lateral chest and breast TECHNIQUE: Targeted ultrasound at area of clinical complaint at the junction of the lateral right mid breast and chest wall at 9:00 11 cm from the nipple COMPARISON: None FINDINGS: No suspicious mass or shadowing, cyst or other significant sonographic finding is noted. IMPRESSION: BI-RADS Category 1: Negative Reviewed, dictated and finalized at Location A. Reviewed, dictated and finalized at location A.
== END ==
PROVIDERS: PCP Family Medicine; Visit Provider Nurse Practitioner
DX: N64.4 Mastodynia (principal)
CPT/HCPCS: 76642

== ENCOUNTER 2021-12-23 01:20 | Emergency (ER) | payer BC, SELFPAY ==
--- NOTE | ~2021-12-23 | XR_ITS ---
EXAMINATION: XR chest 2V DATE: 12/23/2021 02:17 INDICATION: Shortness of breath. Chest pressure. TECHNIQUE: Frontal and lateral views of the chest were obtained. COMPARISON: Chest CT 12/28/2020 FINDINGS: The chest demonstrates clear lungs without pneumonia, pleural effusion, or pneumothorax. Th e heart size is normal. IMPRESSION: 1. No acute cardiopulmonary disease. Reviewed, dictated and finalized at location A.
[2021-12-23 01:22] VITALS: BP 151/88; PULSE 89; RESP 18; TEMP 36.5; O2SAT 100
--- NOTE | 2021-12-23 01:30 | ECG_ITS ---
Measurements Intervals [place] Rate: 88 P: 66 WV: 119 QRS: 43 QRSD: 92 T: 49 QT: 348 QTc: 422 Interpretive Statements SINUS RHYTHM WITH SHORT [place] INTERVAL BORDERLINE ST ABNORMALITY- ANTERIOR LEADS BORDERLINE ECG COMPARED TO ECG 12/28/2020 02:47:[address] ABNORMALITY- ANTERIOR LEADS Electronically Signed On 12-23-2021 7:02:22 CDT by Yves Saldana D.O.
--- NOTE | 2021-12-23 01:46 | ED.SOB ---
HPI - SOB/Dyspnea General Chief Complaint: Shortness of Breath/Dyspnea <ELIDA Ness Last Filed: 12/23/21 03:46> Stated Complaint: SOB <ELIDA Ness Last Filed: 12/23/21 03:46> Time Seen by Provider: 12/23/21 01:30 <ELIDA Ness Last Filed: 12/23/21 03:46> Source: patient <ELIDA Ness Last Filed: 12/23/21 03:46> Mode of arrival: ambulatory <ELIDA Ness Last Filed: 12/23/21 03:46> Limitations: no limitations <ELIDA Ness Last Filed: 12/23/21 03:46> History of Present Illness HPI Narrative: Patient is a 31-year-old female who presents the ED with report of chest pain and shortness of breath. Patient reports having chest pressure, feeling as though something sitting on her chest since Sunday. States chest pressure seems less noticeable when she is up and moving around, but she woke up this morning and felt like it was worse, prompting her presentation. She also reports having shortness of breath, described as though the heaviness on her chest prevents her from taking a deep breath. Denies significant pain with taking deep breath, but feels as though she just cannot. Denies any recent cough, congestion, rhinorrhea, sore throat, fevers, BLE pain or edema, recent long distance travel. Reports COVID last November. No history of hypertension, hyperlipidemia, diabetes, smoking, family history of CAD. <ELIDA Ness Last Filed: 12/23/21 03:46> Related Data Allergies/Adverse Reactions: Allergies Allergy/AdvReac Type Severity Reaction Status Date / Time No Known Allergies Allergy Verified 12/23/21 01:26 <ELIDA Ness Last Filed: 12/23/21 03:46> Review of Systems Review of Systems: CONSTITUTIONAL: Denies fever, chills, or sweats. ENT: Denies rhinorrhea, congestion, sore throat. CARDIOVASCULAR: Reports chest pressure. Denies palpitations or edema. RESPIRATORY: Reports difficulty taking deep breath. Denies cough, pain with taking deep breath. GASTROINTESTINAL: Denies abdominal pain, nausea, vomiting. MUSCULOSKELETAL: Denies BLE pain. <Tasia Powers PA-C - Last Filed: 12/23/21 03:46> All systems reviewed & are unremarkable except as noted in HPI and below <Tasia Powers PA-C - Last Filed: 12/23/21 03:46> PMFSH Past Medical History Medical History: Medical History (Updated 12/23/21 @ 03:37 by Tasia Powers PA-C) Gestational HTN Musculoskeletal pain Overweight (BMI 25.0-29.9) Psoriasiform dermatitis Sinusitis <Tasia Powers PA-C - Last Filed: 12/23/21 03:46> Surgical History Surgical History: Surgical History (Updated 12/23/21 @ 02:16 by Tasia Powers PA-C) History of knee surgery <Tasia Powers PA-C - Last Filed: 12/23/21 03:46> Family History Family History: Family History Grandparent Congestive heart failure Hypertension Mother Hypertension Grandparent Diabetes mellitus <Tasia Powers PA-C - Last Filed: 12/23/21 03:46> Social History Social History: Social History Smoking status: Never smoker Second hand tobacco smoke exposure: No Substance use: never Gender identity (if verbalized by the patient): Female Spiritual care concerns: No <Tasia Powers PA-C - Last Filed: 12/23/21 03:46> Exam Narrative: GENERAL: Well appearing, well-nourished, non-toxic, in no acute distress. HEAD: Normocephalic, atraumatic. NECK: Supple. No adenopathy, no masses. RESPIRATORY: Airway patent, respirations nonlabored. No tachypnea. Clear to auscultation bilaterally, no rales, rhonchi, wheezing. CARDIOVASCULAR: Regular rate and rhythm without murmurs, rubs, or gallops. Peripheral pulses 2+ and equal bilaterally. ABDOMINAL: Soft, nontender, nondi
[2021-12-23 02:17] LABS: Basophils Percent Auto 0.5 % (0.2-1.2); Eosinophils Absolute Auto 0.1 K/mm3 (0-0.3); Eosinophils Percent Auto 1.6 % (0-4.4); Hematocrit 37.1 % (37.0-47.0); Hemoglobin 12.8 g/dL (12.0-15.0); Immature Granulocyte Absolute 0.02 K/mm3 (0.00-0.031); Immature Granulocyte Percent A 0.3 % (0-0.5); Lymphocytes Absolute Auto 1.59 K/mm3 (0.9-3.2); Mean Corpuscular HGB Conc 34.5 g/dl (32-36); Mean Corpuscular Hemoglobin 29.8 pg (26-34); Mean Corpuscular Volume 86.5 fl (80-100); Mean Platelet Volume 9.7 fl (7.4-10.4); Monocytes Absolute Auto 0.5 K/mm3 (0.1-0.6); Monocytes Percent Auto 7.5 % (2.6-8.5); Neutrophils Absolute Auto 4.2 K/mm3 (1.3-6.7); Neutrophils Percent Auto 65.1 % (45.5-73.1); Platelet Count Result 248 k/mm3 (150-375); Red Blood Count 4.29 M/mm3 (4.2-5.4); White Blood Count 6.4 K/mm3 (4.5-10.0)
[2021-12-23 02:26] LABS: Lipase 64 U/L (23-300)
[2021-12-23 02:27] LABS: Alanine Aminotransferase 16 U/L (6-35); Alkaline Phosphatase 74 U/L (38-126); Anion Gap 8 mmol/L (8-16); Aspartate Amino Transferase 18 U/L (14-36); Bilirubin,Total 0.4 mg/dL (0.2-1.3); Blood Urea Nitrogen 21 mg/dL (7-17); Calcium 8.9 mg/dL (8.4-10.2); Carbon Dioxide 19 mmol/L (22-30); Chloride 110 mmol/L (98-107); Estimated CRCL calculation 70 ml/min; Estimated Glomerular Filt Rate > 60; Glucose 111 mg/dL (65-110); Potassium 3.5 mmol/L (3.4-5.0); Sodium 137 mmol/L (137-145)
[2021-12-23 02:39] LABS: Troponin I < 0.012 ng/mL (0.000-0.034)
[2021-12-23 02:52] LABS: D Dimer 0.42 ug/mL (<0.48)
[2021-12-23 03:51] VITALS: PULSE 88; RESP 18; O2SAT 98
== END 2021-12-23 03:52 | disposition home or self-care (01) ==
PROVIDERS: Physician Assistant; Emergency Provider Emergency Medicine; PCP Family Medicine
DX: R07.89 Other chest pain (principal); Z86.16 Personal history of COVID-19; R94.31 Abnormal electrocardiogram [ECG] [EKG]
CPT/HCPCS: 36415; 71046; 80053; 83690; 84484; 85025; 85380; 93005; 99284

== ENCOUNTER → 2022-04-25 15:42 | Outpatient (CLI) | payer BC, SELFPAY ==
--- NOTE | ~2022-04-25 | US_ITS ---
EXAMINATION: US pelvic complete DATE: 04/25/2022 16:02 INDICATION: Left lower quadrant abdominal pain. TECHNIQUE: Multiple transabdominal sonographic images of the pelvis were obtained. COMPARISON: Ultrasound pelvis 09/18/2020 FINDINGS: The uterus measures 8.3 x 3.1 x 4.8 cm. There is no free fluid in the pelvis. The endometrial complex measures 5 mm in thickness. The right ovary measures 3.8 x 1.8 x 2.8 cm. The left ovary measures 3.2 x 2.5 x 3.2 cm. There is normal vascular flow in the ovaries. IMPRESSION: 1. Normal pelvis. Reviewed, dictated and finalized at location A. 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 Normal pelvis.
== END ==
PROVIDERS: PCP Family Medicine; Visit Provider Nurse Practitioner
DX: R10.2 Pelvic and perineal pain (principal)
CPT/HCPCS: 76856

== ENCOUNTER 2022-06-14 15:16 | Emergency (ER) | payer BC, SELFPAY ==
[2022-06-14 15:22] VITALS: BP 152/79; PULSE 88; RESP 18; TEMP 36.7; O2SAT 100
--- NOTE | 2022-06-14 15:52 | ED.URI ---
HPI - URI/Sore Throat General Chief Complaint: Upper Respiratory Infection Stated Complaint: Runny Nose,Sore Throat,Bilateral Ear Irritation, Time Seen by Provider: 06/14/22 15:30 Source: patient Mode of arrival: ambulatory Limitations: no limitations History of Present Illness HPI Narrative: Patient presents today complaining of a 5 day history of cough, congestion, rhinorrhea, sore throat, postnasal drip. Cough and sore throat are much worse at night. She currently rates her pain 5/10 and has been taking [id number] cough medicine and Sudafed without much relief. Denies shortness of breath. Denies history of asthma or COPD. She is a nonsmoker. Related Data Allergies Allergy/AdvReac Type Severity Reaction Status Date / Time No Known Allergies Allergy Verified 06/14/22 15:21 Review of Systems Review of Systems: CONSTITUTIONAL: Denies body aches, fever, chills, or sweats. EYES: Denies visual changes, redness, or discharge. ENT: Denies otalgia.+ rhinorrhea, congestion, sore throat, postnasal drip CARDIOVASCULAR: Denies chest pain, palpitations, or edema. RESPIRATORY: Denies dyspnea.+ cough GASTROINTESTINAL: Denies abdominal pain, nausea, vomiting, or diarrhea. GENITOURINARY: Denies dysuria or hematuria. SKIN: Denies rash, itching, or wounds. MUSCULOSKELETAL: Denies back pain, joint pain, or myalgia. NEUROLOGIC: Denies headache, numbness, tingling, or weakness. PSYCH: Denies depression or anxiety. [facility] Past Medical History Medical History Anxiety Gestational HTN Musculoskeletal pain Overweight (BMI 25.0-29.9) Psoriasiform dermatitis Sinusitis Surgical History Surgical History History of knee surgery Family History Family History Grandparent Congestive heart failure Hypertension Mother Hypertension Grandparent Diabetes mellitus Social History Social History Smoking status: Never smoker Second hand tobacco smoke exposure: No Substance use: never Lack of Transportation: No Lack of Food: Never True Current Housing: I Have Housing Concerned About Future Housing: No Difficulty Paying Gas/Electric Bills: No Difficulty Paying for Meds: No Currently Unemployed: No Education: Bachelor's Degree Difficulty w/ Childcare or Family Care: No Living arrangements: with family Occupation/Education: occupation Gender identity (if verbalized by the patient): Female Sexual Orientation (if Verbalized by the Patient): Straight or Heterosexual Spiritual care concerns: No Comments Reviewed Exam Narrative: GENERAL: Well-appearing, well-nourished, and in no acute distress. HEAD: Normocephalic, atraumatic. EYES: EOMI. No redness or drainage. Conjunctivae normal. ENT: Mucous membranes pink and moist. Nares congested. No rhinorrhea. TMs normal bilaterally. Throat normal with moderate white postnasal drainage. Uvula midline. NECK: Normal AROM. Supple. No lymphadenopathy. CHEST: No respiratory distress. Clear to auscultation. HEART: Regular rate and rhythm. No murmur appreciated. Normal peripheral pulses. EXTREMITIES: Normal range of motion. No edema. SKIN: Warm, dry, no rash. Capillary refill normal. Normal skin turgor. NEURO: No focal deficits. Alert and oriented x3. Gait steady. PSYCH: Normal affect. No signs of depression or anxiety. Course Course Level of Care: Express Care Visit Vital Signs Vital signs: Vital Signs Temperature 98.1 F 06/14/22 15:22 Pulse Rate 88 06/14/22 15:22 Respiratory Rate 18 06/14/22 15:22 Blood Pressure 152/79 H 06/14/22 15:22 Pulse Oximetry 100 06/14/22 15:22 Oxygen Delivery Room Air 06/14/22 15:22 Temperature 98.1 F 06/14/22 15:22 Pulse Rate 88 06/14/22 15:22 Respirato
== END 2022-06-14 15:59 | disposition home or self-care (01) ==
PROVIDERS: Emergency Provider Nurse Practitioner; PCP Family Medicine
DX: J06.9 Acute upper respiratory infection, unspecified (principal)
CPT/HCPCS: 87081; 87880; 99213; G0463

== ENCOUNTER → 2022-10-24 12:51 | Outpatient (CLI) | payer BC, SELFPAY ==
--- NOTE | ~2022-10-24 | US_ITS ---
Pelvic ultrasound. Clinical History: Pelvic pain Technique: Realtime transabdominal and transvaginal scanning of the pelvis was performed. Color flow Doppler and Doppler spectral analysis were performed. Findings: The uterus is anteverted. The endometrial stripe has a thickness of 4 mm. No focal mass is identified. The right ovary measures 3.0 x 2.1 x 4.1 cm. No significant right ovarian or adnexal mass is seen. The left ovary measures 3.2 x 1.7 x 3.7 cm. No significant left ovarian or adnexal mass is seen. There is no evidence of free fluid in the cul de sac. Impression: Unremarkable pelvic ultrasound. Reviewed, dictated and finalized at location . Impression: Unremarkable pelvic ultrasound.
== END ==
PROVIDERS: PCP Family Medicine; Visit Provider Obstetrics & Gynecology Gynecology
DX: R10.2 Pelvic and perineal pain (principal)
CPT/HCPCS: 76830

== ENCOUNTER → 2022-11-16 15:13 | Outpatient (CLI) | payer BC, SELFPAY ==
--- NOTE | ~2022-11-16 | XR_ITS ---
EXAMINATION: XR hand LT 2V DATE: 11/16/2022 15:23 INDICATION: Pain to the third digit of the left hand2 TECHNIQUE: Posteroanterior and lateral views of the left hand were obtained. COMPARISON: None. FINDINGS: Alignment is normal. No fracture. Joint spaces are normal. No erosions or periosteal reaction. Soft t issue swelling about the third digit. IMPRESSION: 1. Soft tissue swelling at the third digit of the left hand. No osseous abnormality. Reviewed, dictated and finalized at location A. IMPRESSION: 1. Soft tissue swelling at the third digit of the left hand. No osseous abnorma lity.
== END ==
PROVIDERS: PCP Dermatology; Visit Provider Physician Assistant
DX: M79.645 Pain in left finger(s) (principal); M79.89 Other specified soft tissue disorders
CPT/HCPCS: 73120

== ENCOUNTER 2022-12-27 00:18 | Day surgery (SDC) | payer BC, SELFPAY ==
[2022-12-21 11:05] VITALS: BMI 27.3
[2022-12-27 09:07] VITALS: BP 137/95; PULSE 86; RESP 20; TEMP 36.4; O2SAT 100
[2022-12-27 09:12] VITALS: BMI 26.7
[2022-12-27] MEDS: LACTATED RINGERS 1,000 ML 150 ML IV CONT (09:23)
--- NOTE | 2022-12-27 09:37 | WPDANESEPPF ---
Anes - Initial Pre Proc Eval Procedure: Operation Date: 12/27/22 10:30 Proposed Procedures p Colonoscopy - Bebeto Bower MD Date/Time: 12/27/22 09:37 Surgeon: Bebeto Bower MD Pre Op Diagnosis: Diarrhea, unspecified Patient Data Age: 32 Gender: F Height: 1.6 m Weight: 68.5 kg Last Vital Signs Temp 36.4 C L 12/27/22 09:07 Pulse 86 12/27/22 09:07 Resp 20 12/27/22 09:07 BP 137/95 H 12/27/22 09:07 Pulse Ox 100 12/27/22 09:07 O2 Del Method Room Air 12/27/22 09:07 Allergies Allergy/AdvReac Type Severity Reaction Status Date / Time No Known Allergies Allergy Verified 12/27/22 09:06 Home Medications Medication Instructions Recorded Confirmed Type alprazolam 0.5 mg tablet 0.5 mg PO BID PRN anxiety #60 tabs 12/08/22 12/21/22 Rx cholestyramine (with sugar) 4 gram See Rx Instructions .Route 12/11/22 12/21/22 Rx oral powder .COMPLEX #378 grams diphenhydramine 25 1 tablet PO QHS PRN Insomnia 12/13/22 12/21/22 History mg-acetaminophen 500 mg tablet (Tylenol PM Extra Strength) melatonin 10 mg capsule 10 mg PO QHS 12/13/22 12/21/22 History escitalopram oxalate 5 mg tablet 5 mg PO DAILY #30 tabs 12/20/22 12/21/22 Rx (Lexapro) norethindrone acetate 1.5 1 tablet PO DAILY 12/21/22 12/21/22 History mg-ethinyl estradiol 30 mcg tablet (Junel) tapinarof 1 % topical cream (Vtama) 1 applic topical DAILY 12/21/22 12/21/22 History Patient hx anesthesia problems: post op nausea/vomiting Family hx anesthesia problems: none Results Review: All pre-operative results and documents have been reviewed as part of the pre-operative evaluation. [facility] Past Medical History Medical History Anxiety Gestational HTN Musculoskeletal pain Overweight (BMI 25.0-29.9) Psoriasiform dermatitis Sinusitis Surgical History Surgical History History of knee surgery Family History Family History Grandparent Congestive heart failure Hypertension Mother Hypertension Grandparent Diabetes mellitus Social History Social History Smoking status: Never smoker Second hand tobacco smoke exposure: No Alcohol intake: current Alcohol use details: social Substance use: never Substance use type: does not use Lack of Transportation: No Lack of Food: Never True Current Housing: I Have Housing Concerned About Future Housing: No Difficulty Paying Gas/Electric Bills: No Difficulty Paying for Meds: No Currently Unemployed: No Education: Bachelor's Degree Difficulty w/ Childcare or Family Care: No Living arrangements: with family Occupation/Education: occupation Gender identity (if verbalized by the patient): Female Sexual Orientation (if Verbalized by the Patient): Straight or Heterosexual Spiritual care concerns: No Agree to blood products: Yes Anes - Eval Final PreProcedure Day of Procedure 12/27/22 09:37 Patient weight: overweight Heart: regular rate and rhythm Lungs: clear to auscultation Airway: Mallampati scale class II Neurological: alert and oriented Last oral intake: >/= 8 hours ASA classification: II Emergent: no Anesthetic plan: proceed Anesthesia type and monitoring: general GIVS and standard monitoring Results Review: All pre-operative results and documents have been reviewed as part of the pre-operative evaluation. Informed Consent: The patient's anesthetic plan and its attendant risks and benefits were discussed with the patient/family/POA. Questions were solicited and answers provided to the satisfaction of the patient/family/POA.
--- NOTE | 2022-12-27 10:01 | WPDHPUPDATE1 ---
History and Physical Update Update Date/Time: 12/27/22 10:02 History and Physical has been reviewed, including an updated exam of the patient. There are NO changes in the patient's condition. Risks, benefits, and alternatives have been discussed and questions answered. Patient agrees to proceed with procedure.
[2022-12-27 10:19] VITALS: BP 113/74; PULSE 91; RESP 22; O2SAT 100
[2022-12-27 10:29] VITALS: BP 127/82; PULSE 78; RESP 18; O2SAT 100
[2022-12-27 10:39] VITALS: BP 129/89; PULSE 65; RESP 18; O2SAT 100
== END 2022-12-27 10:52 | disposition home or self-care (01) ==
PROVIDERS: PCP Family Medicine; Visit Provider Internal Medicine Gastroenterology
PROC: 0DJD8ZZ Inspection of Lower Intestinal Tract, Via Natural or Artificial Opening Endoscopic (ICD-10-PCS; CPT 45378; principal; 2022-12-27 10:30)
DX: K52.832 Lymphocytic colitis (principal); K63.5 Polyp of colon; K64.8 Other hemorrhoids; L40.8 Other psoriasis; F41.9 Anxiety disorder, unspecified
CPT/HCPCS: 45385; 45380; 88305; J2704; J7120

== ENCOUNTER 2023-03-07 12:45 | Emergency (ER) | payer BC, SELFPAY ==
[2023-03-07 12:50] VITALS: BP 123/71; PULSE 83; RESP 16; TEMP 36.3; O2SAT 100
--- NOTE | 2023-03-07 13:18 | ED.URI ---
HPI - URI/Sore Throat General Chief Complaint: Upper Respiratory Infection Stated Complaint: Cough Time Seen by Provider: 03/07/23 13:19 Source: patient Mode of arrival: ambulatory Limitations: no limitations History of Present Illness HPI Narrative: 33 yo F presents with c/o cough for 2 wks. Not taking any OTC meds to treat symtpoms. Recently started new medications for anxiety and depression and was only of interactions with OTC cold meds. Reports cough worse past few days with some SOB with exertion. Afebrile. No CP. All systems reviewed and negative except as noted above. Related Data Home Medications Medication Instructions Recorded Confirmed melatonin 10 mg capsule 10 mg PO QHS 12/13/22 03/07/23 norethindrone acetate 1.5 1 tablet PO DAILY 12/21/22 03/07/23 mg-ethinyl estradiol 30 mcg tablet (Junel) guselkumab 100 mg/mL subcutaneous 100 mg subcut ONCE 02/02/23 03/07/23 auto-injector (Tremfya) sertraline 100 mg tablet 100 mg PO DAILY 03/06/23 03/07/23 clonazepam 1 mg tablet 1 mg PO BID 03/07/23 03/07/23 trazodone 50 mg tablet 50 mg PO HS PRN Insomnia 03/07/23 03/07/23 Allergies Allergy/AdvReac Type Severity Reaction Status Date / Time No Known Allergies Allergy Verified 03/07/23 12:59 Review of Systems Review of Systems: CONSTITUTIONAL: Denies fever, chills, or sweats. EYES: Denies visual changes, redness, or discharge. ENT: Denies rhinorrhea, congestion, sore throat, or otalgia. CARDIOVASCULAR: Denies chest pain, palpitations, or edema. RESPIRATORY: Reports cough and dyspnea with exertion. GASTROINTESTINAL: Denies abdominal pain, nausea, vomiting, or diarrhea. GENITOURINARY: Denies dysuria or hematuria. SKIN: Denies rash or itching. MUSCULOSKELETAL: Denies back pain, joint pain, or myalgia. NEUROLOGIC: Denies headache, numbness, or weakness. PSYCHIATRIC: Denies anxiety or depression. All other systems reviewed are negative, except as documented in HPI. [facility] Past Medical History Medical History Anxiety Gestational HTN Lymphocytic colitis Musculoskeletal pain Overweight (BMI 25.0-29.9) Psoriasiform dermatitis Sinusitis Surgical History Surgical History History of knee surgery Family History Family History Grandparent Congestive heart failure Hypertension Mother Hypertension Grandparent Diabetes mellitus Social History Social History Smoking status: Never smoker Second hand tobacco smoke exposure: No Alcohol intake: current Alcohol use details: social Substance use: never Substance use type: does not use Lack of Transportation: No Lack of Food: Never True Current Housing: I Have Housing Concerned About Future Housing: No Difficulty Paying Gas/Electric Bills: No Difficulty Paying for Meds: No Currently Unemployed: No Education: Bachelor's Degree Difficulty w/ Childcare or Family Care: No Living arrangements: with family Occupation/Education: occupation Gender identity (if verbalized by the patient): Female Sexual Orientation (if Verbalized by the Patient): Straight or Heterosexual Spiritual care concerns: No Agree to blood products: Yes Comments At time of signature, agree with nursing past medical, surgical, social and family history. There is no relevant family history pertinent to the presenting complaint. Exam Narrative: GENERAL: This is a well-nourished, well-developed patient, in no apparent distress. HEAD: normocephalic, atraumatic. EYES: PERRL. Sclera clear/white. Vision is grossly intact. EARS: External ears normal, auditory canals clear and without drainage, TMs normal without perforation. Hearing grossly intact. NOSE: External nose normal with no obvious nasal discharge, nares without redne
== END 2023-03-07 13:30 | disposition home or self-care (01) ==
PROVIDERS: Emergency Provider Nurse Practitioner Family; PCP Family Medicine
DX: J22 Unspecified acute lower respiratory infection (principal); F41.9 Anxiety disorder, unspecified
CPT/HCPCS: 99213; G0463

== ENCOUNTER 2023-06-06 15:25 | Emergency (ER) | payer BC, SELFPAY ==
[2023-06-06 15:49] VITALS: BP 134/97; PULSE 87; RESP 16; TEMP 36.6; O2SAT 99
--- NOTE | 2023-06-06 16:06 | ED.EYEPROB ---
HPI - Eye Problem General Chief complaint: Eye Problems Stated complaint: lt eye irritation Source: patient Mode of arrival: ambulatory Limitations: no limitations History of Present Illness HPI Narrative: 33-year-old female presented for complaint of left eye redness and irritation since this morning. She states she woke with the eye crusted shut with white drainage. Throughout the day she has noted redness around the eye and continued to have drainage and grittiness. Does not wear contact lenses. Denies eye pain, vision changes, headache, dizziness, nausea, vomiting, fevers or chills. 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 chief complaint: eye pain Related Data Home Medications Medication Instructions Recorded Confirmed norethindrone acetate 1.5 1 tablet PO DAILY 12/21/22 04/04/23 mg-ethinyl estradiol 30 mcg tablet (Junel) guselkumab 100 mg/mL subcutaneous 100 mg subcut ONCE 02/02/23 04/04/23 auto-injector (Tremfya) clonazepam 1 mg tablet 1 mg PO BID 03/07/23 04/04/23 bupropion HCl 150 mg 24 hr tablet, 150 mg PO QAM 04/04/23 04/04/23 extended release quetiapine 50 mg tablet 100 mg PO QHS 04/04/23 04/04/23 sertraline 100 mg tablet 150 mg PO DAILY 04/04/23 04/04/23 lithium carbonate 150 mg capsule mg 06/06/23 Allergies Allergy/AdvReac Type Severity Reaction Status Date / Time No Known Allergies Allergy Verified 06/06/23 16:12 Review of Systems Review of Systems: CONSTITUTIONAL: Denies body aches, fever, chills EYES: redness and drainage to left eye; denies swelling, pain, FB sensation, photophobia, Denies visual changes ENT: Denies rhinorrhea, congestion, sore throat, or otalgia. CARDIOVASCULAR: Denies chest pain, palpitations SKIN: Denies rash, itching, or wounds. MUSCULOSKELETAL: Denies back pain, joint pain, or myalgia. NEUROLOGIC: Denies headache All systems reviewed & are unremarkable except as noted in HPI and below PMFSH Past Medical History Medical History Anxiety Gestational HTN Lymphocytic colitis Musculoskeletal pain Overweight (BMI 25.0-29.9) Psoriasiform dermatitis Sinusitis Surgical History Surgical History History of knee surgery Family History Family History Grandparent Congestive heart failure Hypertension Mother Hypertension Grandparent Diabetes mellitus Social History Social History Smoking status: Never smoker Second hand tobacco smoke exposure: No Alcohol intake: current Alcohol use details: social Substance use: never Substance use type: does not use Lack of Transportation: No Lack of Food: Never True Current Housing: I Have Housing Concerned About Future Housing: No Difficulty Paying Gas/Electric Bills: No Difficulty Paying for Meds: No Currently Unemployed: No Education: Bachelor's Degree Difficulty w/ Childcare or Family Care: No Living arrangements: with family Occupation/Education: occupation Gender identity (if verbalized by the patient): Female Sexual Orientation (if Verbalized by the Patient): Straight or Heterosexual Spiritual care concerns: No Agree to blood products: Yes Comments At time of signature, I have reviewed and agree with nursing past medical, surgical, social and family history unless otherwise noted. Please see nursing chart for further information. There is no relevant family history pertinent to the presenting complaint Exam Narrative: GENERAL: Well-appearing HEAD: Normocephalic, atraumatic. EYES: Left conjunctival injection, Large amount of purulent drainage; no eye lid swelling or stye formation. PERRLA. EOMI. Lid eversion shows no FB. ENT: Mucous membranes pink and moist. No rhinorrhea. HEART: Regular rate and rhythm. ABDOMEN: Soft, nontender, nondistende
== END 2023-06-06 16:26 | disposition home or self-care (01) ==
PROVIDERS: Emergency Provider Nurse Practitioner Family; PCP Family Medicine
DX: H10.9 Unspecified conjunctivitis (principal); F41.9 Anxiety disorder, unspecified
CPT/HCPCS: 99213; G0463

== ENCOUNTER 2023-08-16 17:30 | Emergency (ER) | payer BC, SELFPAY ==
[2023-08-16 17:47] VITALS: BP 124/91; PULSE 85; RESP 16; TEMP 37.1; O2SAT 100
--- NOTE | 2023-08-16 18:15 | ED.EAR ---
HPI - Ear Problem General Chief complaint: Ear Stated complaint: Left Ear Irritation Time Seen by Provider: 08/16/23 18:05 Source: patient, RN notes reviewed and old records reviewed Mode of arrival: ambulatory Limitations: no limitations History of Present Illness HPI Narrative: 33 year old female who presents to [facility] care with 3 days history of inability to hear from left ear with ear feeling clogged, reports history of increased ear wax production. Patient reports mild discomfort to her left ear denies any URI symptoms, denies any fevers, no tragal tenderness noted. MD Complaint: decreased hearing and other (left ear feel clogged) Location: left ear Duration: constant Severity: mild Discharge from ear: Reports no Treatment prior to arrival: none Related Data Home Medications Medication Instructions Recorded Confirmed norethindrone acetate 1.5 1 tablet PO DAILY 12/21/22 08/16/23 mg-ethinyl estradiol 30 mcg tablet (Junel) guselkumab 100 mg/mL subcutaneous 100 mg subcut ONCE 02/02/23 08/16/23 auto-injector (Linusya) clonazepam 1 mg tablet 1 mg PO BID 03/07/23 08/16/23 bupropion HCl 150 mg 24 hr tablet, 150 mg PO QAM 04/04/23 08/16/23 extended release quetiapine 50 mg tablet 100 mg PO QHS 04/04/23 08/16/23 sertraline 100 mg tablet 150 mg PO DAILY 04/04/23 08/16/23 lithium carbonate 150 mg capsule 150 mg PO DIRECTED 06/06/23 08/16/23 Allergies Allergy/AdvReac Type Severity Reaction Status Date / Time No Known Allergies Allergy Verified 08/16/23 17:45 Review of Systems Review of Systems: CONSTITUTIONAL: Denies malaise, chills, sweats, or fever. EYES: Denies visual changes, redness, or discharge. ENT: Reports rhinorrhea, no congestion, no sinus pain, left otalgia with decreased hearing and no sore throat. CARDIOVASCULAR: Denies chest pain, palpitations, or edema. RESPIRATORY: Reports no cough.? Denies dyspnea. GASTROINTESTINAL: Denies abdominal pain, nausea, vomiting, diarrhea SKIN: Denies rash or itching. MUSCULOSKELETAL: Denies myalgia. NEUROLOGIC: Denies headache. All systems reviewed & are unremarkable except as noted in HPI and below PMFSH Past Medical History Medical History Anxiety Foot fracture, left Gestational HTN Lymphocytic colitis Musculoskeletal pain Overweight (BMI 25.0-29.9) Psoriasiform dermatitis Sinusitis Surgical History Surgical History History of knee surgery left ACL repair Family History Family History Grandparent Congestive heart failure Hypertension Mother Hypertension Grandparent Diabetes mellitus Social History Social History Smoking status: Never smoker Second hand tobacco smoke exposure: No Alcohol intake: current Alcohol use details: social Substance use: never Substance use type: does not use Lack of Transportation: No Lack of Food: Never True Current Housing: I Have Housing Concerned About Future Housing: No Difficulty Paying Gas/Electric Bills: No Difficulty Paying for Meds: No Currently Unemployed: No Education: Bachelor's Degree Difficulty w/ Childcare or Family Care: No Living arrangements: with family Occupation/Education: occupation Gender identity (if verbalized by the patient): Female Sexual Orientation (if Verbalized by the Patient): Straight or Heterosexual Spiritual care concerns: No Agree to blood products: Yes Comments At time of signature, agree with nursing past medical, surgical, social and family history. There is no relevant family history pertinent to the presenting complaint Exam Narrative: GENERAL: Well-appearing, well-nourished, and in no acute distress. HEAD: Normocephalic EYES: PERRLA, conjunctivae clear ENT: Nares clear,
== END 2023-08-16 18:43 | disposition home or self-care (01) ==
PROVIDERS: Emergency Provider Registered Nurse; PCP Family Medicine
DX: H61.22 Impacted cerumen, left ear (principal); F41.9 Anxiety disorder, unspecified
CPT/HCPCS: 69209; 99212; G0463

== ENCOUNTER 2024-09-19 08:13 | Outpatient (CLI) | payer BC, SELFPAY ==
--- OUTSIDE RECORDS SUMMARY | 2024-09-19 08:17 | XMS_ITS | Referral Summary ---
Author Organization [facility] Address [address] [place] [address] Care Team Providers Care Welfare Specialist Name Role Phone Bushra Bailey MD Primary Care Provider [phone] Allergies No known active allergies Medications norethindrone-ethi nyl estradiol-iron (MICROGESTIN FE 1.530) 1.5 mg-30 mcg per tabletIndications: Contraception Take 1 tablet by mouth daily Active diphenhydrAMINE-ac etaminophen (TYLENOL PM) 25-500 mg tabletIndications: Insomnia Take 2 tablets by mouth nightly Active melatonin tablet Take 4 tablets (12 mg total) by mouth nightly as needed for sleep Active escitalopram (LEXAPRO) 20 mg tablet Take 1 tablet (20 mg total) by mouth every morning Active guselkumab (TREMFYA) 100 mg/mL auto-injector subcutaneous syringe Inject 1 mL (100 mg total) under the skin every 8 (eight) weeks Active budesonide EC (ENTOCORT EC) 3 mg 24 hr capsule Take 2 capsules (6 mg total) by mouth every morning Active clonazePAM (KlonoPIN) 0.5 mg tablet Take 2 tablets (1 mg total) by mouth 2 (two) times a day as needed for anxiety 14 tablet 3 Active Social History Tobacco Use Types Packs/Day Years Used Date Smoking Tobacco: Never Assessed Personal Safety Answer Date Recorded Have you ever been in or are you currently in a harmful physical or emotional relationship or is someone making you feel afraid or unsafe? Denies 02/21/2023 Comments No Sex and Gender Information Value Date Recorded Sex Assigned at Not on file Legal Sex Female 9:59 AM PRODUCT MANAGEMENT ANALYST Gender Identity Not on file Sexual Orientation Not on file Last Filed Vital Signs Vital Sign Reading Time Taken Comments Blood Pressure 118/65 02/21/2023 5:17 PM PRODUCT MANAGEMENT ANALYST Pulse 75 02/21/2023 5:17 PM PRODUCT MANAGEMENT ANALYST Temperature 36.9 C (98.5 F) 02/21/2023 5:17 PM PRODUCT MANAGEMENT ANALYST Respiratory Rate 16 02/21/2023 5:17 PM PRODUCT MANAGEMENT ANALYST Oxygen Saturation 99% 02/21/2023 5:17 PM PRODUCT MANAGEMENT ANALYST Inhaled Oxygen Concentration - - Weight 71.5 kg (157 lb 10.1 oz) 023 10:26 AM PRODUCT MANAGEMENT ANALYST Height 160 cm (5' 3) 02/21/2023 10:26 AM PRODUCT MANAGEMENT ANALYST Body Mass Index 27.92 02/21/2023 10:26 AM PRODUCT MANAGEMENT ANALYST Plan of Treatment Not on file Insurance [place] [id number] [place] [address] ACCESS Member Subscriber Plan / Payer (Ef fective 2018-Present) Name:More Rush Relation to Subscriber:Spouse Name:MEEAN RUSH Date of :1988 (Home) Address: [facility] [place] [address] Payer ID:[id number] (NAIC) Type: [employer]IANCE Address: [facility] [id number] [place] [id number] Care Teams Welfare Specialist Relationship Specialty Start Date End Date Bushra Bailey MD PCP - General Family Medicine 02/21/23
--- OUTSIDE RECORDS SUMMARY | 2024-09-19 08:17 | XMS_ITS | Clinical Summary ---
Author Organization [facility] Address [address] [place] [address] Care Team Providers Care Family Practice Physician Assistant Name Role Phone Bushra Bailey MD Primary Care Provider [phone] Allergies No known active allergies Medications norethindrone-ethi [...] on file Legal Sex Female 9:59 AM TRANSPORT TECHNICIAN Gender Identity Not on file Sexual Orientation Not on file Last Filed Vital Signs Vital Sign Reading Time Taken Comments Blood Pressure 118/65 02/21/2023 5:17 PM TRANSPORT TECHNICIAN Pulse 75 02/21/2023 5:17 PM TRANSPORT TECHNICIAN Temperature 36.9 C (98.5 F) 02/21/2023 5:17 PM TRANSPORT TECHNICIAN Respiratory Rate 16 02/21/2023 5:17 PM TRANSPORT TECHNICIAN Oxygen Saturation 99% 02/21/2023 5:17 PM TRANSPORT TECHNICIAN Inhaled Oxygen Concentration - - Weight 71.5 kg (157 lb 10.1 oz) 023 10:26 AM TRANSPORT TECHNICIAN Height 160 cm (5' 3) 02/21/2023 10:26 AM TRANSPORT TECHNICIAN Body Mass Index 27.92 02/21/2023 10:26 AM TRANSPORT TECHNICIAN Plan of Treatment Health Maintenance Due Date Last Done Comments Cervical Cancer Screening 1989 Depression Screening 1989 Hepatitis C Screening 1989 DTaP/Tdap/Td Vaccine (1 - Tdap) 01/19/2000 Varicella Vaccines (1 of 2 - 13+ 2-dose series) 2002 Hepatitis B Screening 2007 Regular Well Visit/Exam 18-64 2007 Covid-19 Vaccine (3 - 2023-2 5 season) 2023 06/29/2020, 06/01/2020 Influenza Vaccine (Season Ended) 2024 HPV Vaccines Aged Out No longer eligi ble based on patient's age to complete this topic Pneumococcal vaccine <65 Aged Out No longer eligible based on patient's age to complete this topic Insurance [employer] Teams Family Practice Physician Assistant Relationship Specialty Start Date End Date Bushra Bailey MD PCP - General Family Medicine 02/21/23
--- OUTSIDE RECORDS SUMMARY | 2024-09-19 08:18 | XMS_ITS | Patient Health Record ---
Author Organization [facility] [employer] [facility] Address [address] [place] [address] Care Team Providers Care Air Sampling And Monitoring Name Role Phone Bushra Bailey MD Primary Care Provider UnavailReny Mejia Unavailable [phone] Kobi Loomis Unavailable [phone] Talib De La Rosa Unavailable [phone] Allergies No Known Allergies Reason For Referral No Information Medications Medication SIG (Take, Route, Frequency, Duration) Notes Start Date End Date Status 1.5-30 MG-MCG TAKE 1 TABLET BY MOUTH EVERY DAY Oral for 28 Days Activ e Tremfya 100 MG/ML Subcutaneous for 56 Days Active Spravato (84 MG Dose) 28 MG/DEVICE 3 sprays in each nostril Nasally once a week for 1 days 08/22/2024 Active FLUoxetine HCl 40 MG 1 capsule Orally On ce a day Active Doxepin HCl 25 MG 1-2 capsule at bedtime Orally Once a day As needed Active [place] [address] Carbonate 150 MG 1 capsule Oral Twice a day Active Oseltamivir Phosphate 75 MG Oral for 5 Days Active clonazePAM 1 MG 1 tablet Oral Once a day for 30 days As needed 09/12/2024 Active busPIRone HCl 10 MG 1 tablet Oral 3 time s a day for 90 days Active Immunizations Vaccine Route Administration Date Status Comme nts Moderna Covid-19 Vaccine 1st dose Unknown 06/01/2020 Ad ministered Moderna Covid-19 Vaccine 1st dose Unknown 06/29/2020 Ad ministered Social History Tobacco Use: Social History Observation Description Date Details (start date - stop date) Never Smoker NA - NA Sex Assigned At : Social History Observation Description Sex Assigned At Female Tobacco Control (Standard) Question Answer Notes Tobacco use: Nonsmoker Problems Problem Type SNOMED Code ICD Code Onset Dates Problem Status W/U Status Risk Notes Problem Severe recurrent major depression without psychotic features (40542897) Major depressive disorder, recurrent severe without psychotic features (F33.2) Active confirmed Problem Generalized anxiety disorder (78278785) Generalized anxiety disorder (F41.1) Active confirmed Problem Primary insomnia (5710860) Primary insomnia (F51.01) Active confirmed Problem Screening for cardiovascular system disease (721188698) Encounter for screening for cardiovascular disorders (Z13.6) Active confirmed Problem Generalized anxiety disorder (64338232) AKOSUA (generalized anxiety disorder) (F41.1) Active confirmed Problem 777948410 Non-suicidal self-harm (R45.88) Active confirmed Problem 718177219 Self-mutilation (Z72.89) Active confirmed Problem 595442843 Psychophysiologi anatoliy insomnia (F51.04) Active confirmed Problem 9577763 Passive suicidal ideations (R45.851) Active confirmed Vital Signs Heart Rate 95 /min 09/12/2024 Height-cm 160.02 cm 09/12/2024 Oximetry 98 % 09/12/2024 Blood pressure diastolic 90 mm Hg 09/12/2024 Weight-kg 81.65 kg 02/08/2024 Height 63.00 in 09/12/2024 Blood pressure systolic 139 mm Hg 09/12/2024 Weight 180 lbs 02/08/2024 BMI 31.88 kg/m2 02/08/2024 Encounters Encounter Location Date Provider Diagnosis [facility] [place] [address] [facility] [address] [place] [address] 09/19/2024 Talib Clubb [facility] [place] [address] [place] [address] 09/20/2023 Reny Kurilla Major depressive dis order, recurrent severe without psychotic features F33.2 ; Generalized anxiety disorder F41.1 and Primary insomnia F51.01 [facility] [address] [facility] [address] [place] [address] 10/02/2023 Reny Kurilla Major depressive dis order, recurrent severe without psychotic features F33.2 ; Generalized anxiety disorder F41.1 and Primary insomnia F51.01 [facility] [address] [place] [address] 10/03/2023 Kobi Ebonie Major depressive dis order, recurrent severe without psychotic features F33.2 [facility], [facility] [address] [place] [address] 10/09/2023 Kobi Ebonie Major depressive dis order, recurrent severe without psychotic features F33.2 [facility], [facility] [address] [place] [address] 10/15/2023 Reny Kurilla Major depressive dis order, recurrent severe without psychotic features F33.2 [facility], [facility] [address] [place] [address] 10/23/2023 Reny Kurilla Major depressive dis order, recurrent severe without psychotic features F33.2 [facility], [facility] [address] [place] [address] 10/30/2023 Reny Kurilla Major depressive dis order, recurrent severe without psychotic features F33.2 [facility], [facility] [address] [place] [address] 11/13/2023 Talib Clubb Major depressive dis order, recurrent severe without psychotic features F33.2 ; Generalized anxiety disorder F41.1 and Primary insomnia F51.01 [facility], [facility] [address] [place] [address] 11/20/2023 Talib Clubb Major depressive dis order, recurrent severe without psychotic features F33.2 and AKOSUA (generalized anxiety disorder) F41.1 [facility], [facility] [address] [place] [address] 11/22/2023 Kobi Ebonie Major depressive dis order, recurrent severe without psychotic features F33.2 ; Generalized anxiety disorder F41.1 and Primary insomnia F51.01 [facility], [facility] [address] [place] [address] 11/26/2023 Kobi Ebonie Major depressive dis order, recurrent severe without psychotic features F33.2 [facility], [facility] [address] [place] [address] 11/27/2023 Kobi Ebonie Major depressive dis order, recurrent severe without psychotic features F33.2 [facility], [facility] [address] [place] [address] 11/28/2023 Kobi Ebonie Major depressive dis order, recurrent severe without psychotic features F33.2 [facility], [facility] [address] [place] [address] 11/29/2023 Kobi Ebonie Major depressive dis order, recurrent severe without psychotic features F33.2 [facility], [facility] [address] [place] [address] 11/30/2023 Talib Clubb Major depressive dis order, recurrent severe without psychotic features F33.2 [facility], [facility] [address] [place] [address] 12/03/2023 Kobi Ebonie Major depressive dis order, recurrent severe without psychotic features F33.2 [facility], [facility] [address] [place] [address] 12/04/2023 Kobi Ebonie Major depressive dis order, recurrent severe without psychotic features F33.2 [facility], [facility] [address] [place] [address] 12/05/2023 Kobi Ebonie Major depressive dis order, recurrent severe without psychotic features F33.2 [facility], [facility] [address] [place] [address] 12/06/2023 Kobi Ebonie Major depressive dis order, recurrent severe without psychotic features F33.2 [facility], [facility] [address] [place] [address] 12/07/2023 Talib Clubb Major depressive dis order, recurrent severe without psychotic features F33.2 and Self-mutilation Z72.89 [facility], [facility] [address] [place] [address] 12/10/2023 Kobi Ebonie Major depressive dis order, recurrent severe without psychotic features F33.2 [facility], [facility] [address] [place] [address] 12/11/2023 Kobi Ebonie Major depressive dis order, recurrent severe without psychotic features F33.2 [facility], [facility] [address] [place] [address] 12/12/2023 Kobi Ebonie Major depressive dis order, recurrent severe without psychotic features F33.2 [facility], [facility] [address] [place] [address] 12/13/2023 Kboi Ebonie Major depressive dis order, recurrent severe without psychotic features F33.2 [facility], [facility] [address] [place] [address] 12/14/2023 Talib Clubb Major depressive dis order, recurrent severe without psychotic features F33.2 ; AKOSUA (generalized anxiety disorder) F41.1 and Psychophysiological insomnia F51.04 [facility], [facility] [address] [place] [address] 12/18/2023 Kobi Ebonie Major depressive dis order, recurrent severe without psychotic features F33.2 [facility], [facility] [address] [place] [address] 12/19/2023 Kobi Ebonie Major depressive dis order, recurrent severe without psychotic features F33.2 [facility], [facility] [address] [place] [address] 12/20/2023 Kobi Ebonie Major depressive dis order, recurrent severe without psychotic features F33.2 [facility], [facility] [address] [place] [address] 12/24/2023 Kobi Ebonie Major depressive dis order, recurrent severe without psychotic features F33.2 [facility], [facility] [address] [place] [address] 12/25/2023 Kobi Ebonie Major depressive dis order, recurrent severe without psychotic features F33.2 [facility], [facility] [address] [place] [address] 12/26/2023 Kobi Ebonie Major depressive dis order, recurrent severe without psychotic features F33.2 [facility], [facility] [address] [place] [address] 12/27/2023 Kobi Ebonie Major depressive dis order, recurrent severe without psychotic features F33.2 [facility], [facility] [address] [place] [address] 12/28/2023 Talib Clubb Major depressive dis order, recurrent severe without psychotic features F33.2 [facility], [facility] [address] [place] [address] 12/31/2023 Kobi Ebonie Major depressive dis order, recurrent severe without psychotic features F33.2 [facility], [facility] [address] [place] [address] 01/01/2024 Reny Damon Major depressive dis order, recurrent severe without psychotic features F33.2 ; Generalized anxiety disorder F41.1 ; Primary insomnia F51.01 and 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 [facility], [facility] [address] [place] [address] 01/01/2024 Kobi Ebonie Major depressive dis order, recurrent severe without psychotic features F33.2 [facility], [facility] [address] [place] [address] 01/02/2024 Kobi Ebonie Major depressive dis order, recurrent severe without psychotic features F33.2 [facility], [facility] [address] [place] [address] 01/03/2024 Kobi Ebonie Major depressive dis order, recurrent severe without psychotic features F33.2 [facility], [facility] [address] [place] [address] 01/04/2024 Talib Clubb Major depressive dis order, recurrent severe without psychotic features F33.2 and Suicidal thoughts R45.851 [facility], [facility] [address] [place] [address] 01/07/2024 Kobi Ebonie Major depressive dis order, recurrent severe without psychotic features F33.2 [facility], [facility] [address] [place] [address] 01/08/2024 Kobi Ebonie Major depressive dis order, recurrent severe without psychotic features F33.2 [facility], [facility] [address] [place] [address] 01/09/2024 Kobi Ebonie Major depressive dis order, recurrent severe without psychotic features F33.2 [facility], [facility] [address] [place] [address] 01/10/2024 Kobi Ebonie Major depressive dis order, recurrent severe without psychotic features F33.2 [facility], [facility] [address] [place] [address] 01/11/2024 Kobi Ebonie Major depressive dis order, recurrent severe without psychotic features F33.2 [facility], [facility] [address] [place] [address] 01/14/2024 Talib Clubb Major depressive dis order, recurrent severe without psychotic features F33.2 ; Suicidal thoughts R45.851 and Self-mutilation Z72.89 [facility], [facility] [address] [place] [address] 01/23/2024 Kobi Ebonie Major depressive dis order, recurrent severe without psychotic features F33.2 [facility], [facility] [address] [place] [address] 01/24/2024 Kobi Ebonie Major depressive dis order, recurrent severe without psychotic features F33.2 [facility], [facility] [address] [place] [address] 01/29/2024 Kobi Ebonie Major depressive dis order, recurrent severe without psychotic features F33.2 [facility], [facility] [address] [place] [address] 01/30/2024 Kobi Ebonie Major depressive dis order, recurrent severe without psychotic features F33.2 [facility], [facility] [address] [place] [address] 01/31/2024 Kobi Ebonie Major depressive dis order, recurrent severe without psychotic features F33.2 [facility], [facility] [address] [place] [address] 02/05/2024 Kobi Ebonie Major depressive dis order, recurrent severe without psychotic features F33.2 [facility], [facility] [address] [place] [address] 02/06/2024 Kobi Ebonie Major depressive dis order, recurrent severe without psychotic features F33.2 [facility], [facility] [address] [place] [address] 02/08/2024 Kobi Ebonie Major depressive dis order, recurrent severe without psychotic features F33.2 and Primary insomnia F51.01 [facility], [facility] [address] [place] [address] 02/08/2024 Kobi Ebonie Major depressive dis order, recurrent severe without psychotic features F33.2 [facility], [facility] [address] [place] [address] 02/15/2024 Talib Clubb Major depressive dis order, recurrent severe without psychotic features F33.2 [facility] [address] [place] [address] 03/28/2024 Talib Clubb Major depressive dis order, recurrent severe without psychotic features F33.2 [facility], [facility] [address] [place] [address] 04/11/2024 Talib Clubb Major depressive dis order, recurrent severe without psychotic features F33.2 [facility], [facility] [address] [place] [address] 04/25/2024 Talib Clubb Major depressive dis order, recurrent severe without psychotic features F33.2 and Hypertension, unspecified type 401.9 [facility] [address] [place] [address] 05/09/2024 Talib Clubb Major depressive dis order, recurrent severe without psychotic features F33.2 and Passive suicidal ideations R45.851 [facility] [address] [place] [address] 05/22/2024 Reny Kurilla Major depressive dis order, recurrent severe without psychotic features F33.2 ; Generalized anxiety disorder F41.1 ; Primary insomnia F51.01 and 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 [place] [facility] [address] [place] [address] 06/13/2024 Talib Clubb Major depressive dis order, recurrent severe without psychotic features F33.2 and Passive suicidal ideations R45.851 [facility] [place] [facility] [address] [place] [address] 06/20/2024 Talib Clubb Major depressive dis order, recurrent severe without psychotic features F33.2 and Passive suicidal ideations R45.851 [facility] [place] [employer], [facility] [address] [place] [address] 06/27/2024 Talib Clubb Major depressive dis order, recurrent severe without psychotic features F33.2 [facility] [place] [address] [place] [address] 07/04/2024 Talib Clubb Major depressive dis order, recurrent severe without psychotic features F33.2 ; Encounter for screening for cardiovascular disorders Z13.6 and Dietary counseling and surveillance Z71.3 [facility] [place] [address] [place] [address] 07/11/2024 Talib Clubb Major depressive dis order, recurrent severe without psychotic features F33.2 and Encounter for screening for cardiovascular disorders Z13.6 [facility] [place] [address] [facility] [address] [place] [address] 07/18/2024 Talib Clubb Major depressive dis order, recurrent severe without psychotic features F33.2 and Encounter for screening for cardiovascular disorders Z13.6 [facility] [place] [address] [facility] [address] [place] [address] 07/25/2024 Talib Clubb Major depressive dis order, recurrent severe without psychotic features F33.2 ; Non-suicidal self-harm R45.88 ; Encounter for screening for cardiovascular disorders Z13.6 and Dietary counseling and surveillance Z71.3 [facility] [place] [address] [facility] [address] [place] [address] 07/31/2024 Reny Damon Encounter for screen ing for cardiovascular disorders Z13.6 ; Encounter for screening for depression Z13.31 ; Major depressive disorder, recurrent severe without psychotic features F33.2 ; Non-suicidal self-harm R45.88 ; Dietary counseling and surveillance Z71.3 ; Generalized anxiety disorder F41.1 and Primary insomnia F51.01 [facility] [employer] [place] [address] [place] [address] 08/01/2024 Talib Clubb Major depressive dis order, recurrent severe without psychotic features F33.2 ; Encounter for screening for cardiovascular disorders Z13.6 and Non-suicidal self-harm R45.88 [facility] [place] [address] [place] [address] 08/08/2024 Reny Damon Major depressive dis order, recurrent severe without psychotic features F33.2 and Encounter for screening for cardiovascular disorders Z13.6 [facility], [facility] [address] [place] [address] 08/15/2024 Talib Clubb Major depressive dis order, recurrent severe without psychotic features F33.2 ; Non-suicidal self-harm R45.88 ; Encounter for screening for cardiovascular disorders Z13.6 and Dietary counseling and surveillance Z71.3 [facility], [facility] [address] [place] [address] 08/22/2024 Talib Clubb Major depressive dis order, recurrent severe without psychotic features F33.2 ; Non-suicidal self-harm R45.88 ; Generalized anxiety disorder F41.1 ; Encounter for screening for cardiovascular disorders Z13.6 and Dietary counseling and surveillance Z71.3 [facility], [facility] [address] [place] [address] 08/29/2024 Talib Clubb Major depressive dis order, recurrent severe without psychotic features F33.2 and Encounter for screening for cardiovascular disorders Z13.6 [facility], [facility] [address] [place] [address] 09/05/2024 Talib Clubb Major depressive dis order, recurrent severe without psychotic features F33.2 and Encounter for screening for cardiovascular disorders Z13.6 [facility], [facility] [address] [place] [address] 09/12/2024 Talib Clubb Major depressive dis order, recurrent severe without psychotic features F33.2 ; Encounter for screening for cardiovascular disorders Z13.6 and Generalized anxiety disorder F41.1 [facility], [facility] [address] [place] [address] 10/01/2023 Reny Damon [facility], [facility] [address] [place] [address] 10/03/2023 Reny Damon [facility], [facility] [address] [place] [address] 10/05/2023 Reny Damon [facility], [facility] [address] [place] [address] 10/09/2023 Reny Damon [facility], [facility] [address] [place] [address] 11/14/2023 Reny Damon [facility], [facility] [address] [place] [address] 11/20/2023 Reny Kurilla [facility], [facility] [address] [place] [address] 11/20/2023 Reny Kurilla [facility], [facility] [address] [place] [address] 11/30/2023 Reny Kurmatt AKOSUA (generalized anx iety disorder) F41.1 [facility], [facility] [address] [place] [address] 01/31/2024 Reny Kurilla [facility], [facility] [address] [place] [address] 05/23/2024 Renyjudie Damon [facility], [facility] [address] [place] [address] 06/06/2024 Reny Kurilla [facility], [facility] [address] [place] [address] 07/09/2024 Reny Kurilla Major depressive dis order, recurrent severe without psychotic features F33.2 [facility], [facility] [address] [place] [address] 07/15/2024 Reny Kurilla Major depressive dis order, recurrent severe without psychotic features F33.2 [facility], [facility] [address] [place] [address] 08/22/2024 Reny Kurilla Major depressive dis order, recurrent severe without psychotic features F33.2 [facility], [facility] [address] [place] [address] 09/24/2023 Reny Kurilla [facility], [facility] [address] [place] [address] 09/25/2023 Reny Kurilla [facility], [facility] [address] [address] [place] [address] 09/27/2023 Reny Kurilla Primary insomnia F51 .01 [facility], [facility] [address] [place] [address] 10/04/2023 Reny Kurilla [facility], [facility] [address] [place] [address] 10/30/2023 Renyjudie Daomn Generalized anxiety disorder F41.1 [facility], [facility] [address] [place] [address] 2024 Reny Damon [facility], [facility] [address] [place] [address] 02/14/2024 Reny Damon [facility], [facility] [address] [place] [address] 02/15/2024 Reny Damon [facility], [facility] [address] [place] [address] 02/15/2024 Reny Damon [facility], [facility] [address] [place] [address] 02/15/2024 Reny Damon [facility], [facility] [address] [place] [address] 03/06/2024 Reny Damon [facility], [facility] [address] [place] [address] 03/18/2024 Reny Damon [facility], [facility] [address] [place] [address] 05/26/2024 Reny Damon Generalized anxiety disorder F41.1 [facility], [facility] [address] [place] [address] 08/08/2024 Reny Damon [facility], [facility] [address] [place] [address] 08/11/2024 Reny Damon Assessments Encounter Date Diagnosis (ICD Code) Assessment Notes Treatment Notes Treatment Clinical Notes Section Notes 01/01/2024 Major depressive disorder, recurrent severe without psychotic 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) 07/09/2024 Major depressive disorder, recurrent severe without psychotic 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) 07/15/2024 Major depressive disorder, recurrent severe without psychotic 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) 08/22/2024 Major depressive disorder, recurrent severe without psychotic 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) 08/29/2024 Major depressive disorder, recurrent severe without psychotic 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) continue current treatment as prescribed by primary psychiatric care provider presents for Spravato administration for depression, reporting current depression at 4/10 and anxiety at 6/10. Major Depressive DisorderAssessm ent: Patient is undergoing Spravato treatment for depression. Current self-reported depression score is 4/10, indicating some improvement but ongoing symptoms. Patient denies suicidal ideation, hallucinations, delusions, or paranoia. Sleep is reported at approximately 6 hours per night, and appetite is normal. No side effects from Spravato treatment were reported.Plan:- Continue Spravato treatment as prescribed- Next Spravato administration scheduled for 09-05-2024- Follow-up appointment with primary psychiatric care provider Reny scheduled for 10-02-2024- Continue current medications as prescribed by psychiatric care provider Reny- Patient expressed understanding of risks and benefits of Spravato treatment- Patient instructed not to drive after Spravato administration AnxietyAssessme nt: Patient reports current anxiety level at 6/10, indicating moderate anxiety symptoms concurrent with depressive symptoms.Plan:- Continue current treatment plan, including medications prescribed by psychiatric care provider Reny- Monitor anxiety symptoms at follow-up appointments The note is transcribed using speech recognition software. It is a reflection of a visit with the patient. It might have some inaccuracy, including medication names and transcribing errors, though efforts have been made to correct them. 09/05/2024 Major depressive disorder, recurrent severe without psychotic 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) continue current treatment as prescribed by primary psychiatric care provider 08/15/2024 Non-suicidal self-harm (ICD-10 - R45.88) 08/22/2024 Major depressive disorder, recurrent severe without psychotic 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) continue current treatment as prescribed by primary psychiatric care provider 09/12/2024 Major depressive disorder, recurrent severe without psychotic 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) continue current treatment as prescribed by primary psychiatric care provider 08/22/2024 Non-suicidal self-harm (ICD-10 - R45.88) 09/12/2024 Encounter for screening for cardiovascular disorders (ICD-10 - Z13.6) 07/18/2024 Major depressive disorder, recurrent severe without psychotic 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) presents for esketamine 84 mg intranasal administration for treatment of major depressive disorder. Major Depressive DisorderAssessm ent: Patient is currently undergoing treatment with intranasal esketamine for major depressive disorder. The patient denied any side effects from the esketamine treatment. No specific details were provided regarding the current severity of depression symptoms or response to treatment.Plan: - Administer esketamine 84 mg intranasally- Patient expressed understanding of not driving after administration of medication- Informed consent obtained (risks, benefits, alternatives discussed) The note is transcribed using speech recognition software. It is a reflection of a visit with the patient. It might have some inaccuracy, including medication names and transcribing errors, though efforts have been made to correct them. continue current treatment as prescribed by primary psychiatric care provider SPRAVATO can cause serious side effects, including: Sedation, dissociation, and respiratory depression. SPRAVATO may cause sleepiness (sedation), fainting, dizziness, spinning sensation, anxiety, or feeling disconnected from yourself, your thoughts, feelings, space and time (dissociation), and breathing problems (respiratory depression and respiratory arrest). Tell your healthcare provider right away if you feel like you cannot stay awake or if you feel like you are going to pass out. Your healthcare provider must monitor you for serious side effects for at least 2 hours after taking SPRAVATO. Your healthcare provider will decide when you are ready to leave the healthcare setting. Abuse and misuse. There is a risk for abuse and misuse with SPRAVATO, which may lead to physical and psychological dependence. Your healthcare provider should check you for signs of abuse, misuse, and dependence before and during treatment. Tell your healthcare provider if you have ever abused or been dependent on alcohol, prescription medicines, or street drugs. Your healthcare provider can tell you more about the differences between physical and psychological dependence in drug addiction. SPRAVATO Risk Evaluation and Mitigation Strategy (REMS). Because of the risks for sedation, dissociation, respiratory depression, and abuse and misuse, SPRAVATO is only available through a restricted program called the SPRAVATO Risk Evaluation and Mitigation Strategy (REMS) Program. SPRAVATO can only be administered at healthcare settings certified in the SPRAVATO REMS Program. Patients treated in outpatient healthcare settings (such as medical offices and clinics) must be enrolled in the program. Increased risk of suicidal thoughts and actions. Antidepressant medicines may increase suicidal thoughts and actions in some people 24 years of age and younger, especially within the first few months of treatment or when the dose is changed. SPRAVATO is not for use in children. Depression and other serious mental illnesses are the most important causes of suicidal thoughts and actions. Some people may have a higher risk of having suicidal thoughts or actions. These include people who have (or have a family history of) depression or a history of suicidal thoughts or actions. How can I watch for and try to prevent suicidal thoughts and actions in myself or a family member? Pay close attention to any changes, especially sudden changes, in mood, behavior, thoughts, or feelings, or if you develop suicidal thoughts or actions. Tell your healthcare provider right away if you have any new or sudden changes in mood, behavior, thoughts, or feelings, or if you develop suicidal thoughts or actions. Keep all follow-up visits with your healthcare provider as scheduled. Call your healthcare provider between visits as needed, especially if you have concerns about symptoms. Tell your healthcare provider or get emergency help right away if you or your family member have any of the following symptoms, especially if they are new, worse, or worry you: thoughts about suicide or dying new or worse depression feeling very agitated or restless trouble sleeping (insomnia) acting aggressive, being angry or violent an extreme increase in activity and talking (cholo) suicide attempts new or worse anxiety panic attacks new or worse irritability acting on dangerous impulses other unusual changes in behavior or mood Do not drive, operate machinery, or do anything where you need to be completely alert after taking SPRAVATO. Do not take part in these activities until the next day following a restful sleep. Increased blood pressure. SPRAVATO can cause a temporary increase in your blood pressure that may last for about 4 hours after taking a dose. Your healthcare provider will check your blood pressure before taking SPRAVATO and for at least 2 hours after you take SPRAVATO. Tell your healthcare provider right away if you get chest pain, shortness of breath, sudden severe headache, change in vision, or seizures after taking SPRAVATO. Problems with thinking clearly. Tell your healthcare provider if you have problems thinking or remembering. Bladder problems. Tell your healthcare provider if you develop trouble urinating, such as a frequent or urgent need to urinate, pain when urinating, or urinating frequently at night. The most common side effects of SPRAVATO include: feeling disconnected from yourself, your thoughts, feelings and things around you dizziness nausea feeling sleepy spinning sensation decreased feeling of sensitivity (numbness) feeling anxious lack of energy increased blood pressure vomiting feeling drunk headache feeling very happy or excited If these common side effects occur, they usually happen right after taking SPRAVATO and go away the same day. 07/11/2024 Major depressive disorder, recurrent severe without psychotic 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) presents for esketamine 84 mg intranasal administration for treatment of major depressive disorder. Major Depressive DisorderAssessm ent: Patient is currently undergoing treatment with intranasal esketamine for major depressive disorder. The patient denied any side effects from the esketamine treatment. No specific details were provided regarding the current severity of depression symptoms or response to treatment.Plan: - Administer esketamine 84 mg intranasally- Patient expressed understanding of not driving after administration of medication- Informed consent obtained (risks, benefits, alternatives discussed) The note is transcribed using speech recognition software. It is a reflection of a visit with the patient. It might have some inaccuracy, including medication names and transcribing errors, though efforts have been made to correct them. continue current treatment as prescribed by primary psychiatric care provider SPRAVATO can cause serious side effects, including: Sedation, dissociation, and respiratory depression. SPRAVATO may cause sleepiness (sedation), fainting, dizziness, spinning sensation, anxiety, or feeling disconnected from yourself, your thoughts, feelings, space and time (dissociation), and breathing problems (respiratory depression and respiratory arrest). Tell your healthcare provider right away if you feel like you cannot stay awake or if you feel like you are going to pass out. Your healthcare provider must monitor you for serious side effects for at least 2 hours after taking SPRAVATO. Your healthcare provider will decide when you are ready to leave the healthcare setting. Abuse and misuse. There is a risk for abuse and misuse with SPRAVATO, which may lead to physical and psychological dependence. Your healthcare provider should check you for signs of abuse, misuse, and dependence before and during treatment. Tell your healthcare provider if you have ever abused or been dependent on alcohol, prescription medicines, or street drugs. Your healthcare provider can tell you more about the differences between physical and psychological dependence in drug addiction. SPRAVATO Risk Evaluation and Mitigation Strategy (REMS). Because of the risks for sedation, dissociation, respiratory depression, and abuse and misuse, SPRAVATO is only available through a restricted program called the SPRAVATO Risk Evaluation and Mitigation Strategy (REMS) Program. SPRAVATO can only be administered at healthcare settings certified in the SPRAVATO REMS Program. Patients treated in outpatient healthcare settings (such as medical offices and clinics) must be enrolled in the program. Increased risk of suicidal thoughts and actions. Antidepressant medicines may increase suicidal thoughts and actions in some people 24 years of age and younger, especially within the first few months of treatment or when the dose is changed. SPRAVATO is not for use in children. Depression and other serious mental illnesses are the most important causes of suicidal thoughts and actions. Some people may have a higher risk of having suicidal thoughts or actions. These include people who have (or have a family history of) depression or a history of suicidal thoughts or actions. How can I watch for and try to prevent suicidal thoughts and actions in myself or a family member? Pay close attention to any changes, especially sudden changes, in mood, behavior, thoughts, or feelings, or if you develop suicidal thoughts or actions. Tell your healthcare provider right away if you have any new or sudden changes in mood, behavior, thoughts, or feelings, or if you develop suicidal thoughts or actions. Keep all follow-up visits with your healthcare provider as scheduled. Call your healthcare provider between visits as needed, especially if you have concerns about symptoms. Tell your healthcare provider or get emergency help right away if you or your family member have any of the following symptoms, especially if they are new, worse, or worry you: thoughts about suicide or dying new or worse depression feeling very agitated or restless trouble sleeping (insomnia) acting aggressive, being angry or violent an extreme increase in activity and talking (cholo) suicide attempts new or worse anxiety panic attacks new or worse irritability acting on dangerous impulses other unusual changes in behavior or mood Do not drive, operate machinery, or do anything where you need to be completely alert after taking SPRAVATO. Do not take part in these activities until the next day following a restful sleep. Increased blood pressure. SPRAVATO can cause a temporary increase in your blood pressure that may last for about 4 hours after taking a dose. Your healthcare provider will check your blood pressure before taking SPRAVATO and for at least 2 hours after you take SPRAVATO. Tell your healthcare provider right away if you get chest pain, shortness of breath, sudden severe headache, change in vision, or seizures after taking SPRAVATO. Problems with thinking clearly. Tell your healthcare provider if you have problems thinking or remembering. Bladder problems. Tell your healthcare provider if you develop trouble urinating, such as a frequent or urgent need to urinate, pain when urinating, or urinating frequently at night. The most common side effects of SPRAVATO include: feeling disconnected from yourself, your thoughts, feelings and things around you dizziness nausea feeling sleepy spinning sensation decreased feeling of sensitivity (numbness) feeling anxious lack of energy increased blood pressure vomiting feeling drunk headache feeling very happy or excited If these common side effects occur, they usually happen right after taking SPRAVATO and go away the same day. 06/20/2024 Major depressive disorder, recurrent severe without psychotic 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) continue current treatment as prescribed by primary psychiatric care provider 06/20/2024 Passive suicidal ideations (ICD-10 - R45.851) 06/27/2024 Major depressive disorder, recurrent severe without psychotic 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) continue current treatment as prescribed by primary psychiatric care provider 07/04/2024 Major depressive disorder, recurrent severe without psychotic 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) presents for esketamine 84 mg intranasal administration for treatment of major depressive disorder. Major Depressive DisorderAssessm ent: Patient is currently undergoing treatment with intranasal esketamine for major depressive disorder. The patient denied any side effects from the esketamine treatment. No specific details were provided regarding the current severity of depression symptoms or response to treatment.Plan: - Administer esketamine 84 mg intranasally- Patient expressed understanding of not driving after administration of medication- Informed consent obtained (risks, benefits, alternatives discussed) The note is transcribed using speech recognition software. It is a reflection of a visit with the patient. It might have some inaccuracy, including medication names and transcribing errors, though efforts have been made to correct them. continue current treatment as prescribed by primary psychiatric care provider SPRAVATO can cause serious side effects, including: Sedation, dissociation, and respiratory depression. SPRAVATO may cause sleepiness (sedation), fainting, dizziness, spinning sensation, anxiety, or feeling disconnected from yourself, your thoughts, feelings, space and time (dissociation), and breathing problems (respiratory depression and respiratory arrest). Tell your healthcare provider right away if you feel like you cannot stay awake or if you feel like you are going to pass out. Your healthcare provider must monitor you for serious side effects for at least 2 hours after taking SPRAVATO. Your healthcare provider will decide when you are ready to leave the healthcare setting. Abuse and misuse. There is a risk for abuse and misuse with SPRAVATO, which may lead to physical and psychological dependence. Your healthcare provider should check you for signs of abuse, misuse, and dependence before and during treatment. Tell your healthcare provider if you have ever abused or been dependent on alcohol, prescription medicines, or street drugs. Your healthcare provider can tell you more about the differences between physical and psychological dependence in drug addiction. SPRAVATO Risk Evaluation and Mitigation Strategy (REMS). Because of the risks for sedation, dissociation, respiratory depression, and abuse and misuse, SPRAVATO is only available through a restricted program called the SPRAVATO Risk Evaluation and Mitigation Strategy (REMS) Program. SPRAVATO can only be administered at healthcare settings certified in the SPRAVATO REMS Program. Patients treated in outpatient healthcare settings (such as medical offices and clinics) must be enrolled in the program. Increased risk of suicidal thoughts and actions. Antidepressant medicines may increase suicidal thoughts and actions in some people 24 years of age and younger, especially within the first few months of treatment or when the dose is changed. SPRAVATO is not for use in children. Depression and other serious mental illnesses are the most important causes of suicidal thoughts and actions. Some people may have a higher risk of having suicidal thoughts or actions. These include people who have (or have a family history of) depression or a history of suicidal thoughts or actions. How can I watch for and try to prevent suicidal thoughts and actions in myself or a family member? Pay close attention to any changes, especially sudden changes, in mood, behavior, thoughts, or feelings, or if you develop suicidal thoughts or actions. Tell your healthcare provider right away if you have any new or sudden changes in mood, behavior, thoughts, or feelings, or if you develop suicidal thoughts or actions. Keep all follow-up visits with your healthcare provider as scheduled. Call your healthcare provider between visits as needed, especially if you have concerns about symptoms. Tell your healthcare provider or get emergency help right away if you or your family member have any of the following symptoms, especially if they are new, worse, or worry you: thoughts about suicide or dying new or worse depression feeling very agitated or restless trouble sleeping (insomnia) acting aggressive, being angry or violent an extreme increase in activity and talking (cholo) suicide attempts new or worse anxiety panic attacks new or worse irritability acting on dangerous impulses other unusual changes in behavior or mood Do not drive, operate machinery, or do anything where you need to be completely alert after taking SPRAVATO. Do not take part in these activities until the next day following a restful sleep. Increased blood pressure. SPRAVATO can cause a temporary increase in your blood pressure that may last for about 4 hours after taking a dose. Your healthcare provider will check your blood pressure before taking SPRAVATO and for at least 2 hours after you take SPRAVATO. Tell your healthcare provider right away if you get chest pain, shortness of breath, sudden severe headache, change in vision, or seizures after taking SPRAVATO. Problems with thinking clearly. Tell your healthcare provider if you have problems thinking or remembering. Bladder problems. Tell your healthcare provider if you develop trouble urinating, such as a frequent or urgent need to urinate, pain when urinating, or urinating frequently at night. The most common side effects of SPRAVATO include: feeling disconnected from yourself, your thoughts, feelings and things around you dizziness nausea feeling sleepy spinning sensation decreased feeling of sensitivity (numbness) feeling anxious lack of energy increased blood pressure vomiting feeling drunk headache feeling very happy or excited If these common side effects occur, they usually happen right after taking SPRAVATO and go away the same day. 05/09/2024 Major depressive disorder, recurrent severe without psychotic 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) 05/09/2024 Passive suicidal ideations (ICD-10 - R45.851) 05/22/2024 Major depressive disorder, recurrent severe without psychotic 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) 05/26/2024 Generalized anxiety disorder (ICD-10 - F41.1) 06/06/2024 Major depressive disorder, recurrent severe without psychotic 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) continue current treatment as prescribed by primary psychiatric care provider. 06/06/2024 Passive suicidal ideations (ICD-10 - R45.851) 06/13/2024 Major depressive disorder, recurrent severe without psychotic 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) continue current treatment as prescribed by primary psychiatric care provider. 07/25/2024 Non-suicidal self-harm (ICD-10 - R45.88) 07/25/2024 Major depressive disorder, recurrent severe without psychotic 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) 07/31/2024 Encounter for screening for cardiovascular disorders (ICD-10 - Z13.6) 08/01/2024 Major depressive disorder, recurrent severe without psychotic 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) continue current treatment as prescribed by primary psychiatric care provider SPRAVATO can cause serious side effects, including: Sedation, dissociation, and respiratory depression. SPRAVATO may cause sleepiness (sedation), fainting, dizziness, spinning sensation, anxiety, or feeling disconnected from yourself, your thoughts, feelings, space and time (dissociation), and breathing problems (respiratory depression and respiratory arrest). Tell your healthcare provider right away if you feel like you cannot stay awake or if you feel like you are going to pass out. Your healthcare provider must monitor you for serious side effects for at least 2 hours after taking SPRAVATO. Your healthcare provider will decide when you are ready to leave the healthcare setting. Abuse and misuse. There is a risk for abuse and misuse with SPRAVATO, which may lead to physical and psychological dependence. Your healthcare provider should check you for signs of abuse, misuse, and dependence before and during treatment. Tell your healthcare provider if you have ever abused or been dependent on alcohol, prescription medicines, or street drugs. Your healthcare provider can tell you more about the differences between physical and psychological dependence in drug addiction. SPRAVATO Risk Evaluation and Mitigation Strategy (REMS). Because of the risks for sedation, dissociation, respiratory depression, and abuse and misuse, SPRAVATO is only available through a restricted program called the SPRAVATO Risk Evaluation and Mitigation Strategy (REMS) Program. SPRAVATO can only be administered at healthcare settings certified in the SPRAVATO REMS Program. Patients treated in outpatient healthcare settings (such as medical offices and clinics) must be enrolled in the program. Increased risk of suicidal thoughts and actions. Antidepressant medicines may increase suicidal thoughts and actions in some people 24 years of age and younger, especially within the first few months of treatment or when the dose is changed. SPRAVATO is not for use in children. Depression and other serious mental illnesses are the most important causes of suicidal thoughts and actions. Some people may have a higher risk of having suicidal thoughts or actions. These include people who have (or have a family history of) depression or a history of suicidal thoughts or actions. How can I watch for and try to prevent suicidal thoughts and actions in myself or a family member? Pay close attention to any changes, especially sudden changes, in mood, behavior, thoughts, or feelings, or if you develop suicidal thoughts or actions. Tell your healthcare provider right away if you have any new or sudden changes in mood, behavior, thoughts, or feelings, or if you develop suicidal thoughts or actions. Keep all follow-up visits with your healthcare provider as scheduled. Call your healthcare provider between visits as needed, especially if you have concerns about symptoms. Tell your healthcare provider or get emergency help right away if you or your family member have any of the following symptoms, especially if they are new, worse, or worry you: thoughts about suicide or dying new or worse depression feeling very agitated or restless trouble sleeping (insomnia) acting aggressive, being angry or violent an extreme increase in activity and talking (cholo) suicide attempts new or worse anxiety panic attacks new or worse irritability acting on dangerous impulses other unusual changes in behavior or mood Do not drive, operate machinery, or do anything where you need to be completely alert after taking SPRAVATO. Do not take part in these activities until the next day following a restful sleep. Increased blood pressure. SPRAVATO can cause a temporary increase in your blood pressure that may last for about 4 hours after taking a dose. Your healthcare provider will check your blood pressure before taking SPRAVATO and for at least 2 hours after you take SPRAVATO. Tell your healthcare provider right away if you get chest pain, shortness of breath, sudden severe headache, change in vision, or seizures after taking SPRAVATO. Problems with thinking clearly. Tell your healthcare provider if you have problems thinking or remembering. Bladder problems. Tell your healthcare provider if you develop trouble urinating, such as a frequent or urgent need to urinate, pain when urinating, or urinating frequently at night. The most common side effects of SPRAVATO include: feeling disconnected from yourself, your thoughts, feelings and things around you dizziness nausea feeling sleepy spinning sensation decreased feeling of sensitivity (numbness) feeling anxious lack of energy increased blood pressure vomiting feeling drunk headache feeling very happy or excited If these common side effects occur, they usually happen right after taking SPRAVATO and go away the same day. Treatment-resis tant depression Assessment: Patient reports current depression level as 5 out of 10 and anxiety level as 3 out of 10. She denies suicidal ideation, homicidal ideation, hallucinations, delusions, or paranoia. Sleep is reported at approximately 6 hours. Patient expresses understanding of risks and benefits of Spravato treatment. Plan: - Administer Spravato 84 mg as scheduled - Patient instructed not to drive after Spravato administration - Continue current medications as prescribed by primary psychiatric care provider - Scheduled for next Spravato treatment on August 08, 2024 - Follow-up visit with Reny scheduled for October 02, 2024 The note is transcribed using speech recognition software. It is a reflection of a visit with the patient. It might have some inaccuracy, including medication names and transcribing errors, though efforts have been made to correct them. 08/08/2024 Major depressive disorder, recurrent severe without psychotic 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) Continue esketamine treatments on weekly schedule Continue current medications No refills needed today -Assessment and treatment plan reviewed with patient. -Compliance with treatment plan importance discussed. -Discussed the risks/benefits of this medication -Discussed medication side effects. -Contact office if symptoms worsen. -Discussed that it can take up to 6-8 weeks to see full therapeutic effects of psychotropic medications. -Crisis prevention hotline 988. 08/15/2024 Major depressive disorder, recurrent severe without psychotic 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) continue current treatment as prescribed by primary psychiatric care provider 01/01/2024 Generalized anxiety disorder (ICD-10 - F41.1) Common side effects to SSRI medications include headaches, dry mouth/eye, GI upset (including indigestion, nausea, diarrhea), sleeping problems (insomnia or drowsiness), decreased libido, blurred vision, dizziness. Generally, side effects will subside or lessen with time and are common during drug initiation and dose changes. If they persist please contact the office. 02/08/2024 Major depressive disorder, recurrent severe without psychotic 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) 02/15/2024 Major depressive disorder, recurrent severe without psychotic 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) 1. Depression - Patient rates her depression as 3/10. - No recent thoughts of suicide or self-harm. - Plan: a. Continue current antidepressant medication regimen. b. Monitor depressive symptoms and adjust treatment as needed. c. Encourage regular physical activity and maintain a healthy sleep schedule. 2. Anxiety - Patient rates her anxiety as 4/10. - Plan: a. Continue current anxiolytic medication regimen. b. Monitor anxiety symptoms and adjust treatment as needed. c. Encourage practice of relaxation techniques, such as deep breathing exercises and mindfulness meditation. 3. Sleep - Patient reports approximately 6 hours of sleep per night. - Plan: a. Encourage establishment of a consistent sleep schedule and practice of good sleep hygiene. b. Monitor sleep duration and quality. 4. Appetite - Patient reports normal appetite. - Plan: a. Encourage maintenance of a balanced diet and hydration. b. Monitor appetite and weight, addressing any concerns as needed. 5. Physical Health - Patient reports no physical complaints. - Plan: a. Encourage maintenance of regular physical activity and attendance of routine medical check-ups. 6. Safety - No thoughts of hurting others. - No hallucinations, delusions, or paranoia reported. - Plan: a. Continue monitoring for any changes in safety concerns or psychotic symptoms. 03/28/2024 Major depressive disorder, recurrent severe without psychotic 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) continue current treatment as prescribed by primary psychiatric care provider. 1. Depression - Patient reports a depression rating of 4/10. - Plan: a. Continue current antidepressant medication. b. Monitor patient's mood and depressive symptoms at future visits. c. Encourage regular physical activity and maintain a healthy sleep schedule. d. Consider referral to therapy if symptoms worsen or do not improve. 2. Anxiety - Patient reports an anxiety rating of 3/10. - Plan: a. Continue current anxiolytic medication as prescribed. b. Monitor patient's anxiety levels at future visits. c. Encourage practice of relaxation techniques, such as deep breathing exercises or mindfulness meditation. 3. Sleep - Patient reports getting approximately 6 hours of sleep per night. - Plan: a. Encourage establishing a consistent sleep schedule and practicing good sleep hygiene. b. Monitor sleep duration and quality at future visits. c. Consider evaluation for sleep disorders if sleep issues persist or worsen. 4. Appetite - Patient reports a normal appetite, stating it is fine. - Plan: a. Encourage maintaining a balanced diet and staying hydrated. b. Monitor appetite and weight at future visits. c. Address any changes in appetite or weight that may be related to medications or mental health symptoms. 5. Safety - Patient explicitly denies any thoughts of suicide, self-harm, or harm to others. - Patient explicitly denies experiencing hallucinations, delusions, or paranoia. - Plan: a. Continue to assess patient's safety and mental status at follow-up visits. b. Encourage reaching out to support system or contacting a mental health professional if experiencing thoughts of self-harm or harm to others. c. Maintain open communication with the patient to ensure safety and well-being. 04/11/2024 Major depressive disorder, recurrent severe without psychotic 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) continue current tx as prescribed by primary psychiatric care provider. 1. Depression - Patient rates her depression as 4 out of 10. - No thoughts of suicide or self-harm. - Plan: a. Continue current antidepressant medication. b. Monitor depressive symptoms at future appointments. c. Encourage regular physical activity and maintain a healthy sleep schedule. 2. Anxiety - Patient rates her anxiety as 4 out of 10. - No thoughts of hurting others. - Plan: a. Continue current anxiolytic medication. b. Monitor anxiety symptoms at future appointments. c. Encourage practice of relaxation techniques, such as deep breathing exercises and mindfulness meditation. 3. Sleep - Patient reports getting approximately 6 hours of sleep per night. - Plan: a. Encourage establishing a consistent sleep schedule and practicing good sleep hygiene. b. Assess sleep quality and duration at future appointments. 4. Appetite - Patient reports a normal appetite. - Plan: a. Encourage maintaining a balanced diet and staying hydrated. b. Monitor appetite and weight at future appointments. 5. Physical complaints - Patient reports no physical complaints. - Plan: a. Continue to monitor for any new or worsening physical symptoms at future appointments. 6. Psychosis - Patient denies experiencing hallucinations, delusions, or paranoia. - Plan: a. Continue to monitor for any signs of psychosis at future appointments. 7. Medication management - Patient reports no changes in medication. - Plan: a. Review medication list and assess for any potential side effects or interactions. b. Monitor patient's response to current medications at future appointments. 04/25/2024 Major depressive disorder, recurrent severe without psychotic 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) continue current tx as prescribe by primary psychiatric care provider. 1. Major Depressive Disorder (MDD) - PHQ-9 score: 10 - Patient reports feeling sad, discouraged about the future, and increased irritability. - Patient rates depression as 2 out of 10. - Encourage patient to continue attending therapy sessions - Monitor depressive symptoms and treatment response during future visits. 2. Generalized Anxiety Disorder (AKOSUA) - AKOSUA-7 score: 5 (mild anxiety) - Patient reports feeling guilty and worried about her health. - Patient rates anxiety as 2 out of 10. - Encourage patient to discuss anxiety concerns with therapist. - Monitor anxiety symptoms and treatment response during future visits. 3. Sleep Disturbances - Patient reports waking up 1-2 hours earlier than usual and difficulty falling back asleep. - Encourage good sleep hygiene, including consistent sleep schedule and relaxing bedtime routine. - Monitor sleep patterns during follow-ups and consider medication adjustments if needed. 4. Appetite Changes - Patient reports a decreased appetite. - Encourage balanced diet and regular meals. - Monitor appetite and weight during future visits. 5. Suicidal Ideation - Patient reports occasional passive thoughts of suicide, denied these thoughts during time of visit. - Patient confirms fleeting thoughts of suicide but wouldn't carry them out. - Ensure patient is aware of crisis prevention hotline number (988) and encourage use if needed. - Encourage patient to discuss suicidal thoughts with therapist. - Monitor suicidal ideation during follow-ups and consider treatment plan adjustments if needed. 01/23/2024 Major depressive disorder, recurrent severe without psychotic 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) 01/24/2024 Major depressive disorder, recurrent severe without psychotic 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) 01/29/2024 Major depressive disorder, recurrent severe without psychotic 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) 01/30/2024 Major depressive disorder, recurrent severe without psychotic 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) 01/31/2024 Major depressive disorder, recurrent severe without psychotic 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) 02/05/2024 Major depressive disorder, recurrent severe without psychotic 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) 02/06/2024 Major depressive disorder, recurrent severe without psychotic 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) 02/08/2024 Major depressive disorder, recurrent severe without psychotic 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) Esketamine to be administered once a week with a follow-up appointment after the 8th esketamine treatment. Major Depressive Disorder - Assessment: Patient has completed 33 TMS sessions and reports improvement in mood and cessation of self-harm behaviors. Current PHQ-9 score is 9, indicating mild depression. - Plan: - Continue current medications: [place] 150 mg twice a day, Buspirone 10 mg three times a day, Fluoxetine 40 mg daily, Clonazepam as needed, and Spravato every 10-12 days. - Monitor patient's progress and consider adjusting the frequency of Spravato based on response and remission status. - Discuss potentially extending Spravato intervals to every two weeks if improvement continues. Insomnia - Assessment: Patient reports difficulty falling asleep and staying asleep, resulting in 5-6 hours of sleep per night with frequent awakenings. Currently on Doxepin, which is not providing adequate relief. - Plan: - Recommend sleep study to further evaluate sleep issues. - Initiate prior authorization for Belsomra. - Once approved, discontinue Doxepin and start Belsomra at 20 mg nightly. - Instruct patient to allow 1-2 weeks for adjustment to the new medication. Excessive Daytime Sleepiness - Assessment: Patient reports napping for 2-3 hours during the day. - Plan: - Address sleep issues through sleep study and adjustment of sleep medications as mentioned in the Insomnia section. Follow-up - Plan: - Schedule additional appointments for Spravato treatment and TMS sessions as needed. - Monitor patient's progress and adjust treatment plan accordingly. - Encourage patient to communicate any changes in mood or sleep patterns to the care team. - Discuss long-term Spravato treatment plan, including potential for continuation up to six years based on recent studies and patient's response. 12/18/2023 Major depressive disorder, recurrent severe without psychotic 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) 12/19/2023 Major depressive disorder, recurrent severe without psychotic 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) 12/20/2023 Major depressive disorder, recurrent severe without psychotic 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) 12/24/2023 Major depressive disorder, recurrent severe without psychotic 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) 12/25/2023 Major depressive disorder, recurrent severe without psychotic 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) 12/26/2023 Major depressive disorder, recurrent severe without psychotic 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) 12/27/2023 Major depressive disorder, recurrent severe without psychotic 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) 12/28/2023 Major depressive disorder, recurrent severe without psychotic 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) 1. Depression - Patient reports depression rating of 5/10. - No recent self-harm behavior in the past week. - No changes in medication. - Plan: a. Continue current antidepressant medication regimen. b. Monitor depressive symptoms closely at follow-ups. c. Encourage regular physical activity and healthy sleep schedule. d. Consider therapist referral if symptoms worsen or don't improve. 2. Anxiety - Patient reports anxiety rating of 2/10. - Plan: a. Continue current anxiolytic medication regimen. b. Encourage relaxation techniques like deep breathing and mindfulness meditation. c. Monitor anxiety symptoms at follow-ups and adjust treatment plan as needed. 3. Sleep - Patient reports approximately 6 hours of sleep nightly. - No reported nightmares. - Plan: a. Encourage good sleep hygiene with consistent schedule and bedtime routine. b. Monitor sleep duration/qualit y at follow-ups and consider further evaluation if issues persist. 4. Appetite - Patient reports normal appetite. - Plan: a. Encourage balanced diet and hydration. b. Monitor appetite and weight at follow-ups. 5. Safety - Patient denies suicidal/self-h arm thoughts, or thoughts to harm others. - No reported delusions, paranoia, or hallucinations. - Plan: a. Continue assessing safety at follow-ups. b. Encourage reaching out to support system or mental health professional if self-harm/harm thoughts arise. 6. Follow-up - Schedule follow-up appointment in 4 weeks to monitor progress and adjust treatment plan. - Encourage patient to contact clinic for any significant mental health changes or treatment concerns. 12/31/2023 Major depressive disorder, recurrent severe without psychotic 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) 01/01/2024 Major depressive disorder, recurrent severe without psychotic 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) 01/02/2024 Major depressive disorder, recurrent severe without psychotic 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) 01/03/2024 Major depressive disorder, recurrent severe without psychotic 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) 01/04/2024 Major depressive disorder, recurrent severe without psychotic 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) Assessment and Plan: 1. Major Depressive Disorder/ SI - Patient reports a depression rating of 7/10 and experiencing suicidal thoughts daily this week without a plan or intent. - Continue current antidepressant medication and monitor for improvement. - Encourage the patient to utilize crisis hotline and support systems when experiencing suicidal thoughts. - pt reports she is aware of 988 crisis hotline and safety plan. 2. Generalized Anxiety Disorder - Patient reports an anxiety rating of 4/10. - Continue current anxiolytic medication and monitor for improvement. - Encourage the patient to engage in relaxation techniques and coping strategies for anxiety management. 3. Insomnia - Patient reports difficulty falling asleep and staying asleep, averaging 4 hours of sleep per night this week. - Patient reports sleeping 3-4 hours during the day. - Recommend trying [id number] r magnesium supplement for sleep improvement. - Advised against using cold medicine with codeine as a sleep aid due to potential interactions with other medications. - Encourage the patient to maintain good sleep hygiene and avoid daytime napping. 4. No reported hallucinations, paranoia, delusions, or thoughts of harming others. - Continue to monitor for any changes in mental status during follow-up appointments. 01/04/2024 Suicidal thoughts (ICD-10 - R45.851) Assessment and Plan: 1. Major Depressive Disorder/ SI - Patient reports a depression rating of 7/10 and experiencing suicidal thoughts daily this week without a plan or intent. - Continue current antidepressant medication and monitor for improvement. - Encourage the patient to utilize crisis hotline and support systems when experiencing suicidal thoughts. - pt reports she is aware of 988 crisis hotline and safety plan. 2. Generalized Anxiety Disorder - Patient reports an anxiety rating of 4/10. - Continue current anxiolytic medication and monitor for improvement. - Encourage the patient to engage in relaxation techniques and coping strategies for anxiety management. 3. Insomnia - Patient reports difficulty falling asleep and staying asleep, averaging 4 hours of sleep per night this week. - Patient reports sleeping 3-4 hours during the day. - Recommend trying [id number] r magnesium supplement for sleep improvement. - Advised against using cold medicine with codeine as a sleep aid due to potential interactions with other medications. - Encourage the patient to maintain good sleep hygiene and avoid daytime napping. 4. No reported hallucinations, paranoia, delusions, or thoughts of harming others. - Continue to monitor for any changes in mental status during follow-up appointments. 01/07/2024 Major depressive disorder, recurrent severe without psychotic 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) 01/08/2024 Major depressive disorder, recurrent severe without psychotic 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) 01/09/2024 Major depressive disorder, recurrent severe without psychotic 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) 01/10/2024 Major depressive disorder, recurrent severe without psychotic 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) 01/11/2024 Major depressive disorder, recurrent severe without psychotic 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) 01/14/2024 Major depressive disorder, recurrent severe without psychotic 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) 1. Major Depressive Disorder - She reports depression rating of 7/10. - Increase in suicidal ideation and self-harm behaviors in past week. - Currently undergoing TMS therapy daily when not in session. - Suicidal thoughts frequent throughout each day, but no plan or intent. - Plan: continue TMS continue spravato continue current medications. utilize crisis hotline or seek emergency services if SI becomes unmanageable. safety plan in place. 2. Anxiety - She reports anxiety rating of 3/10. - Plan: Continue current treatment 3. Insomnia - She reports difficulty falling asleep, staying asleep, and waking too early. - Currently getting 5-6 hours of sleep per night. - No reported nightmares. - Plan: practice sleep hygiene utilize melatonin or magnesium 4. Self-harm (cutting) - She reports recent self-harm behaviors. - No signs of infection or redness around the areas. - Plan: use topical antiseptic to prevent infection. Monitor areas for signs of drainage or redness or increased pain ensure vaccinations are up to date educated on hygiene 5. No reported paranoia, delusions, hallucinations, or physical complaints. 01/14/2024 Suicidal thoughts (ICD-10 - R45.851) 1. Major Depressive Disorder - She reports depression rating of 7/10. - Increase in suicidal ideation and self-harm behaviors in past week. - Currently undergoing TMS therapy daily when not in session. - Suicidal thoughts frequent throughout each day, but no plan or intent. - Plan: continue TMS continue spravato continue current medications. utilize crisis hotline or seek emergency services if SI becomes unmanageable. safety plan in place. 2. Anxiety - She reports anxiety rating of 3/10. - Plan: Continue current treatment 3. Insomnia - She reports difficulty falling asleep, staying asleep, and waking too early. - Currently getting 5-6 hours of sleep per night. - No reported nightmares. - Plan: practice sleep hygiene utilize melatonin or magnesium 4. Self-harm (cutting) - She reports recent self-harm behaviors. - No signs of infection or redness around the areas. - Plan: use topical antiseptic to prevent infection. Monitor areas for signs of drainage or redness or increased pain ensure vaccinations are up to date educated on hygiene 5. No reported paranoia, delusions, hallucinations, or physical complaints. 10/09/2023 Major depressive disorder, recurrent severe without psychotic 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) Continue esketamine treatment weekly. Continue current medications. Await TMS PA. 10/15/2023 Major depressive disorder, recurrent severe without psychotic 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) Continue current medications. Continue weekly esketamine treatment, await TMS PA 10/23/2023 Major depressive disorder, recurrent severe without psychotic 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) Continue weekly esketamine treatments Continue current medication plan Await TMS authorization 10/30/2023 Major depressive disorder, recurrent severe without psychotic 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) Continue weekly esketamine treatments, awaiting TMS approval. 10/30/2023 Generalized anxiety disorder (ICD-10 - F41.1) 11/13/2023 Major depressive disorder, recurrent severe without psychotic 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) 09/27/2023 Primary insomnia (ICD-10 - F51.01) Electronic Prior Authorization was requested for Belsomra 10 MG Tablet. Provider can order medication once approval received. 10/02/2023 Major depressive disorder, recurrent severe without psychotic 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) 10/02/2023 Generalized anxiety disorder (ICD-10 - F41.1) 11/20/2023 Major depressive disorder, recurrent severe without psychotic 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) 1. Major Depressive Disorder: - She reports a depression rating of 7/10. - Currently on escitalopram, considering increasing the dose to twice a week. - Attending weekly therapy sessions. - Exploring TMS insurance approval. - Provide information on [facility] support groups in the [facility] for depression. Plan: a. Discuss the potential benefits and risks of increasing esketamine dose to twice a week with her. b. Continue weekly therapy sessions. c. Follow up on TMS insurance approval and update her. d. Provide a list of [facility] support groups in the [facility] for depression. 2. Generalized Anxiety Disorder: - She reports an anxiety rating of 7/10. - Currently attending weekly therapy sessions. Plan: a. Continue weekly therapy sessions. b. Monitor anxiety levels and consider medication adjustments if necessary. 3. Suicidal Ideation: - She reports suicidal thoughts at a similar level as before. Plan: a. Continue to closely monitor her suicidal ideation. b. Ensure safety planning is in place and encourage her to reach out for help if needed. c. Consider adjusting treatment plan if suicidal thoughts persist or worsen. 4. Sleep: - She reports attempting to get around 6 hours of sleep per night. Plan: a. Encourage her to maintain good sleep hygiene and aim for 7-9 hours of sleep per night. b. Monitor sleep patterns and consider interventions if sleep issues persist. 11/20/2023 AKOSUA (generalized anxiety disorder) (ICD-10 - F41.1) 1. Major Depressive Disorder: - She reports a depression rating of 7/10. - Currently on escitalopram, considering increasing the dose to twice a week. - Attending weekly therapy sessions. - Exploring TMS insurance approval. - Provide information on [facility] support groups in the [facility] for depression. Plan: a. Discuss the potential benefits and risks of increasing esketamine dose to twice a week with her. b. Continue weekly therapy sessions. c. Follow up on TMS insurance approval and update her. d. Provide a list of [facility] support groups in the [facility] for depression. 2. Generalized Anxiety Disorder: - She reports an anxiety rating of 7/10. - Currently attending weekly therapy sessions. Plan: a. Continue weekly therapy sessions. b. Monitor anxiety levels and consider medication adjustments if necessary. 3. Suicidal Ideation: - She reports suicidal thoughts at a similar level as before. Plan: a. Continue to closely monitor her suicidal ideation. b. Ensure safety planning is in place and encourage her to reach out for help if needed. c. Consider adjusting treatment plan if suicidal thoughts persist or worsen. 4. Sleep: - She reports attempting to get around 6 hours of sleep per night. Plan: a. Encourage her to maintain good sleep hygiene and aim for 7-9 hours of sleep per night. b. Monitor sleep patterns and consider interventions if sleep issues persist. 11/22/2023 Major depressive disorder, recurrent severe without psychotic 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) Continue esketamine treatment weekly. Continue current medications. Await TMS PA. Major Depressive Disorder - Assessment: Patient is currently taking fluoxetine 40 mg daily and lithium 150 mg one capsule three times daily for major depressive disorder. Patient is also receiving Spravato (esketamine) 84 mg once a week. - Plan: - Begin TMS therapy with 36 sessions, combining with esketamine treatment as discussed. - Plan for 4 days of TMS and 1 day of esketamine per week initially. - Consider moving esketamine to every 10 days once good response is achieved. - Monitor response to TMS and adjust esketamine frequency accordingly. - Continue seeing provider for medication management. Anxiety - Assessment: Patient has severe anxiety in addition to major depressive disorder. - Plan: - TMS therapy for severe depression and anxiety, as approved. - Monitor response to TMS and adjust treatment plan as needed. TMS Evaluation and Consent - Assessment: Informed consent obtained, including explanation of side effects such as seizure activity, headache, and tongue biting. - Plan: Reschedule MT threshold for TMS. Follow-up - Plan: - Regular follow-up appointments to assess progress and response to TMS and esketamine treatments. - Adjust treatment plan as necessary based on patient's response and progress. 11/22/2023 Generalized anxiety disorder (ICD-10 - F41.1) Major Depressive Disorder - Assessment: Patient is currently taking fluoxetine 40 mg daily and lithium 150 mg one capsule three times daily for major depressive disorder. Patient is also receiving Spravato (esketamine) 84 mg once a week. - Plan: - Begin TMS therapy with 36 sessions, combining with esketamine treatment as discussed. - Plan for 4 days of TMS and 1 day of esketamine per week initially. - Consider moving esketamine to every 10 days once good response is achieved. - Monitor response to TMS and adjust esketamine frequency accordingly. - Continue seeing provider for medication management. Anxiety - Assessment: Patient has severe anxiety in addition to major depressive disorder. - Plan: - TMS therapy for severe depression and anxiety, as approved. - Monitor response to TMS and adjust treatment plan as needed. TMS Evaluation and Consent - Assessment: Informed consent obtained, including explanation of side effects such as seizure activity, headache, and tongue biting. - Plan: Reschedule MT threshold for TMS. Follow-up - Plan: - Regular follow-up appointments to assess progress and response to TMS and esketamine treatments. - Adjust treatment plan as necessary based on patient's response and progress. 11/26/2023 Major depressive disorder, recurrent severe without psychotic 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) 11/27/2023 Major depressive disorder, recurrent severe without psychotic 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) 11/28/2023 Major depressive disorder, recurrent severe without psychotic 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) 11/29/2023 Major depressive disorder, recurrent severe without psychotic 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) 11/30/2023 Major depressive disorder, recurrent severe without psychotic 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) 1. Depression: - She reports a current depression rating of 5/10. - No changes in medication since the last visit. Plan: a. Continue her current antidepressant medication regimen. b. Monitor her mood and depressive symptoms at follow-up appointments. c. Encourage her to engage in regular physical activity and maintain a healthy sleep schedule. 2. Anxiety: - She reports a current anxiety rating of 3/10. Plan: a. Continue her current anxiolytic medication regimen. b. Monitor her anxiety levels at follow-up appointments. c. Encourage her to practice relaxation techniques, such as deep breathing exercises and mindfulness meditation. 11/30/2023 AKOSUA (generalized anxiety disorder) (ICD-10 - F41.1) 12/03/2023 Major depressive disorder, recurrent severe without psychotic 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) 12/04/2023 Major depressive disorder, recurrent severe without psychotic 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) 12/05/2023 Major depressive disorder, recurrent severe without psychotic 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) 12/06/2023 Major depressive disorder, recurrent severe without psychotic 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) 12/07/2023 Major depressive disorder, recurrent severe without psychotic 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) 1. Depression - Patient rates her depression as 4/10. - Plan: a. Continue current antidepressant medication. b. Monitor response to treatment and adjust dosage if necessary. c. Encourage regular physical activity and a healthy diet. 2. Anxiety - Patient rates her anxiety as 4/10. - Plan: a. Continue current anxiolytic medication. b. Monitor response to treatment and adjust dosage if necessary. c. Encourage relaxation techniques like deep breathing and mindfulness meditation. 3. Self-Harm - Patient reports daily self-harm thoughts and cutting on her thighs most days, stating it makes me feel better. - No intent or plan to harm others. - No signs of infection reported. - Plan: a. Assess support system and encourage open communication. b. Refer for CBT to address self-harm behaviors and develop healthier coping strategies. c. Educate on wound care and signs of infection. 4. Sleep - Patient reports 6-7 hours of sleep nightly without nightmares. - Plan: a. Encourage good sleep hygiene with a consistent schedule and bedtime routine. b. Monitor sleep patterns at follow-ups. 5. Appetite - Patient reports normal appetite. - Plan: a. Encourage a balanced diet and hydration. b. Monitor weight and appetite at follow-ups. 6. Psychosis - Patient denies delusions, paranoia, or hallucinations. - Plan: a. Continue monitoring for psychosis signs at follow-ups. 7. Medication Review - Current medication list reviewed. - Plan: a. Continue current medications as prescribed. b. Monitor for side effects/interac tions at follow-ups. 8. Suicidal Ideation - Patient denies suicidal thoughts. - Plan: a. Continue assessing for suicidal ideation at follow-ups. 12/07/2023 Self-mutilation (ICD-10 - Z72.89) 1. Depression - Patient rates her depression as 4/10. - Plan: a. Continue current antidepressant medication. b. Monitor response to treatment and adjust dosage if necessary. c. Encourage regular physical activity and a healthy diet. 2. Anxiety - Patient rates her anxiety as 4/10. - Plan: a. Continue current anxiolytic medication. b. Monitor response to treatment and adjust dosage if necessary. c. Encourage relaxation techniques like deep breathing and mindfulness meditation. 3. Self-Harm - Patient reports daily self-harm thoughts and cutting on her thighs most days, stating it makes me feel better. - No intent or plan to harm others. - No signs of infection reported. - Plan: a. Assess support system and encourage open communication. b. Refer for CBT to address self-harm behaviors and develop healthier coping strategies. c. Educate on wound care and signs of infection. 4. Sleep - Patient reports 6-7 hours of sleep nightly without nightmares. - Plan: a. Encourage good sleep hygiene with a consistent schedule and bedtime routine. b. Monitor sleep patterns at follow-ups. 5. Appetite - Patient reports normal appetite. - Plan: a. Encourage a balanced diet and hydration. b. Monitor weight and appetite at follow-ups. 6. Psychosis - Patient denies delusions, paranoia, or hallucinations. - Plan: a. Continue monitoring for psychosis signs at follow-ups. 7. Medication Review - Current medication list reviewed. - Plan: a. Continue current medications as prescribed. b. Monitor for side effects/interac tions at follow-ups. 8. Suicidal Ideation - Patient denies suicidal thoughts. - Plan: a. Continue assessing for suicidal ideation at follow-ups. 12/10/2023 Major depressive disorder, recurrent severe without psychotic 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) 12/11/2023 Major depressive disorder, recurrent severe without psychotic 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) 12/12/2023 Major depressive disorder, recurrent severe without psychotic 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) 12/13/2023 Major depressive disorder, recurrent severe without psychotic 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) 12/14/2023 Major depressive disorder, recurrent severe without psychotic 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) 1. Major Depressive Disorder/ Suicidal thoughts - Patient reports depression rating 8/10 with persistent suicidal thoughts but no intent or plan. No appetite or sleep changes reported. Suicidal thoughts occur throughout the day, same as before. - Plan: a. Continue current antidepressant medication regimen. b. Monitor for mood changes or suicidal ideation. c. Encourage utilizing crisis hotline (898) if needed. 2. Generalized Anxiety Disorder - Patient reports anxiety rating 3/10, no significant symptom changes. - Plan: a. Continue current anxiolytic medication regimen. b. Encourage relaxation techniques and regular physical activity. c. Monitor for anxiety level changes. 3. Sleep - Patient reports 4-6 hours sleep nightly, no nightmares or disturbances. - Plan: a. Encourage good sleep hygiene with consistent schedule and bedtime routine. b. Monitor for sleep pattern/quality changes. 4. Medication Management - Patient reports no medication regimen changes. - Plan: a. Continue current medications as prescribed. b. Monitor for side effects or response changes. 12/14/2023 AKOSUA (generalized anxiety disorder) (ICD-10 - F41.1) 1. Major Depressive Disorder/ Suicidal thoughts - Patient reports depression rating 8/10 with persistent suicidal thoughts but no intent or plan. No appetite or sleep changes reported. Suicidal thoughts occur throughout the day, same as before. - Plan: a. Continue current antidepressant medication regimen. b. Monitor for mood changes or suicidal ideation. c. Encourage utilizing crisis hotline (458) if needed. 2. Generalized Anxiety Disorder - Patient reports anxiety rating 3/10, no significant symptom changes. - Plan: a. Continue current anxiolytic medication regimen. b. Encourage relaxation techniques and regular physical activity. c. Monitor for anxiety level changes. 3. Sleep - Patient reports 4-6 hours sleep nightly, no nightmares or disturbances. - Plan: a. Encourage good sleep hygiene with consistent schedule and bedtime routine. b. Monitor for sleep pattern/quality changes. 4. Medication Management - Patient reports no medication regimen changes. - Plan: a. Continue current medications as prescribed. b. Monitor for side effects or response changes. 09/20/2023 Major depressive disorder, recurrent severe without psychotic 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) 09/20/2023 Generalized anxiety disorder (ICD-10 - F41.1) 09/20/2023 Primary insomnia (ICD-10 - F51.01) 12/14/2023 Psychophysiologica l insomnia (ICD-10 - F51.04) 1. Major Depressive Disorder/ Suicidal thoughts - Patient reports depression rating 8/10 with persistent suicidal thoughts but no intent or plan. No appetite or sleep changes reported. Suicidal thoughts occur throughout the day, same as before. - Plan: a. Continue current antidepressant medication regimen. b. Monitor for mood changes or suicidal ideation. c. Encourage utilizing crisis hotline (998) if needed. 2. Generalized Anxiety Disorder - Patient reports anxiety rating 3/10, no significant symptom changes. - Plan: a. Continue current anxiolytic medication regimen. b. Encourage relaxation techniques and regular physical activity. c. Monitor for anxiety level changes. 3. Sleep - Patient reports 4-6 hours sleep nightly, no nightmares or disturbances. - Plan: a. Encourage good sleep hygiene with consistent schedule and bedtime routine. b. Monitor for sleep pattern/quality changes. 4. Medication Management - Patient reports no medication regimen changes. - Plan: a. Continue current medications as prescribed. b. Monitor for side effects or response changes. 11/22/2023 Primary insomnia (ICD-10 - F51.01) Major Depressive Disorder - Assessment: Patient is currently taking fluoxetine 40 mg daily and lithium 150 mg one capsule three times daily for major depressive disorder. Patient is also receiving Spravato (esketamine) 84 mg once a week. - Plan: - Begin TMS therapy with 36 sessions, combining with esketamine treatment as discussed. - Plan for 4 days of TMS and 1 day of esketamine per week initially. - Consider moving esketamine to every 10 days once good response is achieved. - Monitor response to TMS and adjust esketamine frequency accordingly. - Continue seeing provider for medication management. Anxiety - Assessment: Patient has severe anxiety in addition to major depressive disorder. - Plan: - TMS therapy for severe depression and anxiety, as approved. - Monitor response to TMS and adjust treatment plan as needed. TMS Evaluation and Consent - Assessment: Informed consent obtained, including explanation of side effects such as seizure activity, headache, and tongue biting. - Plan: Reschedule MT threshold for TMS. Follow-up - Plan: - Regular follow-up appointments to assess progress and response to TMS and esketamine treatments. - Adjust treatment plan as necessary based on patient's response and progress. 10/02/2023 Primary insomnia (ICD-10 - F51.01) Start doxepin 25mg qHS for sleep 10/03/2023 Major depressive disorder, recurrent severe without psychotic 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) Esketamine to be administered once a week with a follow-up appointment after the 8th esketamine treatment. Major Depressive Disorder, treatment-resis tant - Plan: - Continue current medications: Prozac 40 mg, doxepin 25 mg, buspirone 5 mg TID, lithium 150 mg BID, fluoxetine 40 mg daily, Spravato every other week, clonazepam 1 mg PRN, control, and Trimphea injection once every eight weeks. - Increase the frequency of esketamine to once a week; obtain a new prescription and pre-authorizati on until February. - Initiate the prior authorization process for TMS therapy. - Reduce clonazepam to twice a day until TMS is approved, then decrease to once a day in the evening. - Schedule a two-week follow-up appointment to discuss TMS consent and progress. Anxiety - Plan: - Continue buspirone 5 mg TID and clonazepam 1 mg PRN. - Monitor response to TMS therapy for potential improvement in anxiety symptoms. Counseling - Plan: - Continue weekly sessions with Mary Jo Villalpando, GP, [employer], LCP, and CAD[facility]. TMS therapy scheduling - Plan: - If possible, start TMS therapy on October 21, allowing for two weeks of treatment before the patient's vacation. - If TMS therapy cannot start until October 28, consider initiating treatment after the patient returns from vacation. - Plan for a one-week break from TMS therapy during the patient's vacation. Follow-up - Plan: - Schedule a two-week follow-up appointment to discuss TMS consent, progress, and any necessary adjustments to the treatment plan. 11/13/2023 Generalized anxiety disorder (ICD-10 - F41.1) 01/14/2024 Self-mutilation (ICD-10 - Z72.89) 1. Major Depressive Disorder - She reports depression rating of 7/10. - Increase in suicidal ideation and self-harm behaviors in past week. - Currently undergoing TMS therapy daily when not in session. - Suicidal thoughts frequent throughout each day, but no plan or intent. - Plan: continue TMS continue spravato continue current medications. utilize crisis hotline or seek emergency services if SI becomes unmanageable. safety plan in place. 2. Anxiety - She reports anxiety rating of 3/10. - Plan: Continue current treatment 3. Insomnia - She reports difficulty falling asleep, staying asleep, and waking too early. - Currently getting 5-6 hours of sleep per night. - No reported nightmares. - Plan: practice sleep hygiene utilize melatonin or magnesium 4. Self-harm (cutting) - She reports recent self-harm behaviors. - No signs of infection or redness around the areas. - Plan: use topical antiseptic to prevent infection. Monitor areas for signs of drainage or redness or increased pain ensure vaccinations are up to date educated on hygiene 5. No reported paranoia, delusions, hallucinations, or physical complaints. 02/08/2024 Primary insomnia (ICD-10 - F51.01) Electronic Prior Authorization was requested for Belsomra 20 MG Tablet. Provider can order medication once approval received. Major Depressive Disorder - Assessment: Patient has completed 33 TMS sessions and reports improvement in mood and cessation of self-harm behaviors. Current PHQ-9 score is 9, indicating mild depression. - Plan: - Continue current medications: [place] 150 mg twice a day, Buspirone 10 mg three times a day, Fluoxetine 40 mg daily, Clonazepam as needed, and Spravato every 10-12 days. - Monitor patient's progress and consider adjusting the frequency of Spravato based on response and remission status. - Discuss potentially extending Spravato intervals to every two weeks if improvement continues. Insomnia - Assessment: Patient reports difficulty falling asleep and staying asleep, resulting in 5-6 hours of sleep per night with frequent awakenings. Currently on Doxepin, which is not providing adequate relief. - Plan: - Recommend sleep study to further evaluate sleep issues. - Initiate prior authorization for Belsomra. - Once approved, discontinue Doxepin and start Belsomra at 20 mg nightly. - Instruct patient to allow 1-2 weeks for adjustment to the new medication. Excessive Daytime Sleepiness - Assessment: Patient reports napping for 2-3 hours during the day. - Plan: - Address sleep issues through sleep study and adjustment of sleep medications as mentioned in the Insomnia section. Follow-up - Plan: - Schedule additional appointments for Spravato treatment and TMS sessions as needed. - Monitor patient's progress and adjust treatment plan accordingly. - Encourage patient to communicate any changes in mood or sleep patterns to the care team. - Discuss long-term Spravato treatment plan, including potential for continuation up to six years based on recent studies and patient's response. 04/25/2024 Hypertension, unspecified type (ICD9-CM - 401.9) 1. Major Depressive Disorder (MDD) - PHQ-9 score: 10 - Patient reports feeling sad, discouraged about the future, and increased irritability. - Patient rates depression as 2 out of 10. - Encourage patient to continue attending therapy sessions - Monitor depressive symptoms and treatment response during future visits. 2. Generalized Anxiety Disorder (AKOSUA) - AKOSUA-7 score: 5 (mild anxiety) - Patient reports feeling guilty and worried about her health. - Patient rates anxiety as 2 out of 10. - Encourage patient to discuss anxiety concerns with therapist. - Monitor anxiety symptoms and treatment response during future visits. 3. Sleep Disturbances - Patient reports waking up 1-2 hours earlier than usual and difficulty falling back asleep. - Encourage good sleep hygiene, including consistent sleep schedule and relaxing bedtime routine. - Monitor sleep patterns during follow-ups and consider medication adjustments if needed. 4. Appetite Changes - Patient reports a decreased appetite. - Encourage balanced diet and regular meals. - Monitor appetite and weight during future visits. 5. Suicidal Ideation - Patient reports occasional passive thoughts of suicide, denied these thoughts during time of visit. - Patient confirms fleeting thoughts of suicide but wouldn't carry them out. - Ensure patient is aware of crisis prevention hotline number (382) and encourage use if needed. - Encourage patient to discuss suicidal thoughts with therapist. - Monitor suicidal ideation during follow-ups and consider treatment plan adjustments if needed. 01/01/2024 Primary insomnia (ICD-10 - F51.01) 08/15/2024 Encounter for screening for cardiovascular disorders (ICD-10 - Z13.6) 08/08/2024 Encounter for screening for cardiovascular disorders (ICD-10 - Z13.6) 08/01/2024 Encounter for screening for cardiovascular disorders (ICD-10 - Z13.6) Treatment-resis tant depression Assessment: Patient reports current depression level as 5 out of 10 and anxiety level as 3 out of 10. She denies suicidal ideation, homicidal ideation, hallucinations, delusions, or paranoia. Sleep is reported at approximately 6 hours. Patient expresses understanding of risks and benefits of Spravato treatment. Plan: - Administer Spravato 84 mg as scheduled - Patient instructed not to drive after Spravato administration - Continue current medications as prescribed by primary psychiatric care provider - Scheduled for next Spravato treatment on August 08, 2024 - Follow-up visit with Reny scheduled for October 02, 2024 The note is transcribed using speech recognition software. It is a reflection of a visit with the patient. It might have some inaccuracy, including medication names and transcribing errors, though efforts have been made to correct them. 07/31/2024 Encounter for screening for depression (ICD-10 - Z13.31) 07/25/2024 Encounter for screening for cardiovascular disorders (ICD-10 - Z13.6) 06/13/2024 Passive suicidal ideations (ICD-10 - R45.851) 05/22/2024 Generalized anxiety disorder (ICD-10 - F41.1) Common side effects to SSRI medications include headaches, dry mouth/eye, GI upset (including indigestion, nausea, diarrhea), sleeping problems (insomnia or drowsiness), decreased libido, blurred vision, dizziness. Generally, side effects will subside or lessen with time and are common during drug initiation and dose changes. If they persist please contact the office. 07/04/2024 Encounter for screening for cardiovascular disorders (ICD-10 - Z13.6) 07/11/2024 Encounter for screening for cardiovascular disorders (ICD-10 - Z13.6) 07/18/2024 Encounter for screening for cardiovascular disorders (ICD-10 - Z13.6) 09/12/2024 Generalized anxiety disorder (ICD-10 - F41.1) 08/22/2024 Generalized anxiety disorder (ICD-10 - F41.1) 09/05/2024 Encounter for screening for cardiovascular disorders (ICD-10 - Z13.6) 08/29/2024 Encounter for screening for cardiovascular disorders (ICD-10 - Z13.6) 08/22/2024 Encounter for screening for cardiovascular disorders (ICD-10 - Z13.6) 07/04/2024 Dietary counseling and surveillance (ICD-10 - Z71.3) 05/22/2024 Primary insomnia (ICD-10 - F51.01) 07/31/2024 Major depressive disorder, recurrent severe without psychotic 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) 08/01/2024 Non-suicidal self-harm (ICD-10 - R45.88) Treatment-resis tant depression Assessment: Patient reports current depression level as 5 out of 10 and anxiety level as 3 out of 10. She denies suicidal ideation, homicidal ideation, hallucinations, delusions, or paranoia. Sleep is reported at approximately 6 hours. Patient expresses understanding of risks and benefits of Spravato treatment. Plan: - Administer Spravato 84 mg as scheduled - Patient instructed not to drive after Spravato administration - Continue current medications as prescribed by primary psychiatric care provider - Scheduled for next Spravato treatment on August 08, 2024 - Follow-up visit with Reny scheduled for October 02, 2024 The note is transcribed using speech recognition software. It is a reflection of a visit with the patient. It might have some inaccuracy, including medication names and transcribing errors, though efforts have been made to correct them. 01/01/2024 Other [employer] (current) drug therapy (ICD-10 - Z79.899) 11/13/2023 Primary insomnia (ICD-10 - F51.01) 07/31/2024 Non-suicidal self-harm (ICD-10 - R45.88) 08/15/2024 Dietary counseling and surveillance (ICD-10 - Z71.3) 07/25/2024 Dietary counseling and surveillance (ICD-10 - Z71.3) 05/22/2024 Other shelter (current) drug therapy (ICD-10 - Z79.899) 07/31/2024 Dietary counseling and surveillance (ICD-10 - Z71.3) 07/31/2024 Generalized anxiety disorder (ICD-10 - F41.1) 08/22/2024 Dietary counseling and surveillance (ICD-10 - Z71.3) 07/31/2024 Primary insomnia (ICD-10 - F51.01) 10/02/2023 Other Has apt with Dr Loomis tomorrow for TMS eval. 01/14/2024 Other Assessment and plan reviewed with patient Call for problems with medication, side effects or need for dosage change Compliance issues reviewed Discussed the risks/benefits of this medication Discussed medication side effects Return if symptoms worsen Treatment options reviewed. discussed that it can take weeks to see full therapeutic effects of psychotropic medications. discussed when to seek emergency services. discussed crisis prevention hotline 988. 1. Major Depressive Disorder - She reports depression rating of 7/10. - Increase in suicidal ideation and self-harm behaviors in past week. - Currently undergoing TMS therapy daily when not in session. - Suicidal thoughts frequent throughout each day, but no plan or intent. - Plan: continue TMS continue spravato continue current medications. utilize crisis hotline or seek emergency services if SI becomes unmanageable. safety plan in place. 2. Anxiety - She reports anxiety rating of 3/10. - Plan: Continue current treatment 3. Insomnia - She reports difficulty falling asleep, staying asleep, and waking too early. - Currently getting 5-6 hours of sleep per night. - No reported nightmares. - Plan: practice sleep hygiene utilize melatonin or magnesium 4. Self-harm (cutting) - She reports recent self-harm behaviors. - No signs of infection or redness around the areas. - Plan: use topical antiseptic to prevent infection. Monitor areas for signs of drainage or redness or increased pain ensure vaccinations are up to date educated on hygiene 5. No reported paranoia, delusions, hallucinations, or physical complaints. 05/09/2024 Other 1. Depression - Patient rates her depression as 4/10. - Plan: -continue current treatment as prescribed by primary psychiatric care provider. - encourage psychotherapy - patient aware of crisis hotline and when to seek emergency services. 2. Anxiety - Patient rates her anxiety as 4/10. - Plan: - continue treatment as prescribed by primary psychiatric care provider. - encouraged psychotherapy - encouraged relaxation techniques and coping strategies. 3. Suicidal Ideation - Patient reports occasional thoughts of suicide or self-harm, but denies any plan or intent. - Patient had suicidal thoughts as recently as yesterday. - Plan: - continue current treatment as prescribed by primary psychiatric care provider. - encouraged psychotherapy - patient is aware of crisis hotline and when to seek emergency services - suicide crisis plan in place. 4. Sleep - Patient reports getting 6 hours of sleep per night. - Plan: - continue current treatment as prescribed. - encouraged to practice sleep hygiene - encouraged relaxation techniques 5. Appetite - Patient reports a normal appetite. - Plan: Continue to monitor 6. Medication Review - Patient reports no new medications. - Plan: Continue to assess for medication changes at future visits 7. Physical Complaints - Patient reports no new physical complaints. - Plan: Continue to assess any new physical complaints at future appointments 8. Other Mental Health Concerns - Patient denies any hallucinations, delusions, or paranoia. - Patient denies any thoughts of hurting others. - Plan: a. Continue to monitor for any changes in mental status during follow-up appointments. 07/25/2024 Other female patient, presents for Spravato 84 mg administration for treatment of major depressive disorder, reporting depression at 7/10 and anxiety at 8/10. Major Depressive Disorder Assessment: Patient reports current depression severity as 7 out of 10. She is undergoing Spravato treatment for major depressive disorder. Patient denies suicidal ideation but reports self-harm behaviors, specifically cutting on her thigh, without signs of infection. Sleep is reported as an average of 6 hours per night. No appetite changes, medication changes, or side effects from current medications are reported. Patient denies hallucinations, delusions, or paranoia. Plan: - Administer Spravato 84 mg as scheduled. - Provide crisis prevention hotline number. - Educate on when to seek emergency services. - Discuss ways to assess for signs of infection on self-inflicted areas. - Follow-up appointment scheduled with primary psychiatric care provider, Martha, on 07-31-2024. - Continue current medications as prescribed by primary psychiatric care providers. - Patient expressed understanding of risks and benefits of current medication. Anxiety Assessment: Patient reports current anxiety level as 8 out of 10. No further details provided about anxiety symptoms or triggers. Plan: - Continue current treatment plan, including medications as prescribed by primary psychiatric care providers. - Follow-up with primary psychiatric care providerReny, on 07-31-2024 to address anxiety concerns. Self-Harm Behavior Assessment: Patient reports current self-harm behaviors, specifically cutting on her thigh. No signs of infection noted at this time. Plan: - Educate patient on assessing for signs of infection in self-inflicted areas. - Provide crisis prevention hotline number and instructions on when to seek emergency services. - Address self-harm behaviors during follow-up appointment with primary psychiatric care provider, Martha, on 07-31-2024. Patient education: SPRAVATO can cause serious side effects, including: Sedation, dissociation, and respiratory depression. SPRAVATO may cause sleepiness (sedation), fainting, dizziness, spinning sensation, anxiety, or feeling disconnected from yourself, your thoughts, feelings, space and time (dissociation), and breathing problems (respiratory depression and respiratory arrest). Tell your healthcare provider right away if you feel like you cannot stay awake or if you feel like you are going to pass out. Your healthcare provider must monitor you for serious side effects for at least 2 hours after taking SPRAVATO. Your healthcare provider will decide when you are ready to leave the healthcare setting. Abuse and misuse. There is a risk for abuse and misuse with SPRAVATO, which may lead to physical and psychological dependence. Your healthcare provider should check you for signs of abuse, misuse, and dependence before and during treatment. Tell your healthcare provider if you have ever abused or been dependent on alcohol, prescription medicines, or street drugs. Your healthcare provider can tell you more about the differences between physical and psychological dependence in drug addiction. SPRAVATO Risk Evaluation and Mitigation Strategy (REMS). Because of the risks for sedation, dissociation, respiratory depression, and abuse and misuse, SPRAVATO is only available through a restricted program called the SPRAVATO Risk Evaluation and Mitigation Strategy (REMS) Program. SPRAVATO can only be administered at healthcare settings certified in the SPRAVATO REMS Program. Patients treated in outpatient healthcare settings (such as medical offices and clinics) must be enrolled in the program. Increased risk of suicidal thoughts and actions. Antidepressant medicines may increase suicidal thoughts and actions in some people 24 years of age and younger, especially within the first few months of treatment or when the dose is changed. SPRAVATO is not for use in children. Depression and other serious mental illnesses are the most important causes of suicidal thoughts and actions. Some people may have a higher risk of having suicidal thoughts or actions. These include people who have (or have a family history of) depression or a history of suicidal thoughts or actions. How can I watch for and try to prevent suicidal thoughts and actions in myself or a family member? Pay close attention to any changes, especially sudden changes, in mood, behavior, thoughts, or feelings, or if you develop suicidal thoughts or actions. Tell your healthcare provider right away if you have any new or sudden changes in mood, behavior, thoughts, or feelings, or if you develop suicidal thoughts or actions. Keep all follow-up visits with your healthcare provider as scheduled. Call your healthcare provider between visits as needed, especially if you have concerns about symptoms. Tell your healthcare provider or get emergency help right away if you or your family member have any of the following symptoms, especially if they are new, worse, or worry you: thoughts about suicide or dying new or worse depression feeling very agitated or restless trouble sleeping (insomnia) acting aggressive, being angry or violent an extreme increase in activity and talking (cholo) suicide attempts new or worse anxiety panic attacks new or worse irritability acting on dangerous impulses other unusual changes in behavior or mood Do not drive, operate machinery, or do anything where you need to be completely alert after taking SPRAVATO. Do not take part in these activities until the next day following a restful sleep. Increased blood pressure. SPRAVATO can cause a temporary increase in your blood pressure that may last for about 4 hours after taking a dose. Your healthcare provider will check your blood pressure before taking SPRAVATO and for at least 2 hours after you take SPRAVATO. Tell your healthcare provider right away if you get chest pain, shortness of breath, sudden severe headache, change in vision, or seizures after taking SPRAVATO. Problems with thinking clearly. Tell your healthcare provider if you have problems thinking or remembering. Bladder problems. Tell your healthcare provider if you develop trouble urinating, such as a frequent or urgent need to urinate, pain when urinating, or urinating frequently at night. The most common side effects of SPRAVATO include: feeling disconnected from yourself, your thoughts, feelings and things around you dizziness nausea feeling sleepy spinning sensation decreased feeling of sensitivity (numbness) feeling anxious lack of energy increased blood pressure vomiting feeling drunk headache feeling very happy or excited If these common side effects occur, they usually happen right after taking SPRAVATO and go away the same day. 05/22/2024 Other Increase Buspar to 10mg TID for anxiety Patient educated on all medications including potential benefits, side effects, risks. Educated on proper dosing schedule and importance of compliance. [place]MP report checked and consistent with prescription history, no controlled substance prescriptions from other providers. Continue esketamine treatments every other week. -Assessment and treatment plan reviewed with patient. -Compliance with treatment plan importance discussed. -Discussed the risks/benefits of this medication -Discussed medication side effects. -Contact office if symptoms worsen. -Discussed that it can take up to 6-8 weeks to see full therapeutic effects of psychotropic medications. -Crisis prevention hotline 988. 01/01/2024 Other Decrease esketamine treatments to every 10 days, has not had a robust response since starting esketamine treatments. Patient requesting to decrease treatments overall, including medications. Has 16 sessions of TMS remaining, discussed possiblility of getting improved response if she completes the 36 sessions, pt agreeable to continue TMS at this time. Continue current medications, refills sent in. Patient concerned today for fatigue-encoura ged healthy sleep schedule. Labs ordered to evaluate for medical cause of fatigue. [place] report checked and consistent with prescription history, no controlled substance prescriptions from other providers. PHQ9 prior to starting TMS was 18; score today is 17. 06/06/2024 Other 1. Major Depressive Disorder - PHQ-9: 14 - Patient rates depression as 7/10. - Reports daily thoughts of suicide or self-harm, but denies plan or intent. - Aware of crisis prevention hotline number (394). - Currently in therapy, attending sessions every Sal[facility]. - No prior suicide attempts. - Plan: a. Continue current therapy sessions. b. Monitor for increase in suicidal ideation or development of a plan. c. Encourage use of crisis prevention hotline (988) if needed. d. Consider medication adjustment if symptoms do not improve or worsen. 2. Generalized Anxiety Disorder - AKOSUA-7: 7 - Patient rates anxiety as 6/10. - Plan: a. Continue current therapy sessions focusing on anxiety management techniques. b. Monitor for increase in anxiety symptoms. c. Consider medication adjustment if symptoms do not improve or worsen. 3. Psychosis - No reported hallucinations, delusions, or paranoia. - Plan: a. Continue to monitor for any development of psychotic symptoms during follow-up visits. 4. Physical Health and Medication - No reported new physical complaints or medication changes. - Plan: a. Continue current medications as prescribed. b. Encourage patient to report any new physical complaints or concerns during follow-up visits. 5. Violent Ideation - No reported thoughts of harming others. - Plan: a. Continue to monitor for any development of violent ideation during follow-up visits. 07/11/2024 Other Major Depressive Disorder Assessment: Patient reports current depression severity of 5/10. No suicidal ideation, hallucinations, delusions, or paranoia reported. Sleep is approximately 6 hours per night. Appetite is normal. Patient denies any side effects from current medication prescribed for major depressive disorder. Plan: - Continue current medication as prescribed by primary psychiatric care provider - Patient expressed understanding of risks and benefits of current medication Anxiety Assessment: Patient reports current anxiety severity of 8/10, which is higher than the reported depression level. No specific anxiety symptoms or triggers were discussed in this encounter. The note is transcribed using speech recognition software. It is a reflection of a visit with the patient. It might have some inaccuracy, including medication names and transcribing errors, though efforts have been made to correct them. 06/13/2024 Other 1. Major Depressive Disorder - Patient rates depression at 7/10. - Patient experiences suicidal thoughts daily w/o plan or intent. - Patient recalls the crisis prevention hotline number. - Plan: a. Continue current antidepressant medication. b. Increase frequency of therapy sessions to address suicidal thoughts c. Reinforce the use of the crisis prevention hotline number in times of distress. d. Monitor patient closely for any changes in mood or suicidal ideation. 2. Generalized Anxiety Disorder - Patient rates anxiety at 6/10. - Plan: a. Continue current anxiolytic medication. b. Incorporate anxiety management techniques in therapy sessions, such as deep breathing exercises and cognitive restructuring. c. Encourage patient to engage in regular physical activity and maintain a healthy lifestyle to help manage anxiety symptoms. 3. Sleep Disturbance - Patient reports getting 6 hours of sleep per night. - Plan: a. Assess the patient's sleep hygiene and provide recommendations for improvement. b. Consider a short-term sleep aid if sleep disturbance persists or worsens. c. Monitor patient's sleep patterns and address any changes in therapy sessions. 4. Medication Management - No new medications or changes in medication reported. - Plan: a. Continue to monitor patient's response to current medications. b. Assess for any side effects or adverse reactions during follow-up visits. c. Adjust medication regimen as needed based on patient's symptoms and progress. 5. Safety Assessment - Patient denies any thoughts of harming others. - No reported hallucinations, delusions, or paranoia. - Plan: a. Continue to assess patient's risk for harm to self or others during therapy sessions. b. Encourage open communication about any concerning thoughts or behaviors. c. Collaborate with patient's support system to ensure a safe environment. 06/20/2024 Other 1. Depression - PHQ-9: 15 - Patient rates depression at 09/23. - Plan: a. Continue current medication regimen including Aptensio XR. b. Monitor for worsening of depressive symptoms. c. Encourage use of crisis prevention hotline (114) if needed. 2. Anxiety - AKOSUA-7: 8 - Patient rates anxiety at 08/23. -PLAN: a. Continue current medication regimen. b. Recommend practicing relaxation techniques like deep breathing exercises and progressive muscle relaxation. c. Refer for cognitive-behavi oral therapy (CBT) to address anxiety symptoms. 3. Passive Suicidal Ideation - Patient endorses passive suicidal thoughts without plan or intent. - Plan: a. Reinforce use of crisis prevention hotline (988) if suicidal thoughts worsen. b. Assess for changes in suicidal ideation at follow-up appointments. c. discussed when to seek emergency services. 4. Thoughts of Harming Others - Patient denies any thoughts of harming others. 5. Sleep - Patient reports 6 hours of sleep per night, mildly impaired. - Plan: a. Encourage maintaining regular sleep schedule and good sleep hygiene. 6. Hallucinations, Delusions, and Paranoia - Patient denies hallucinations, delusions, or paranoia. 08/22/2024 Other Patient presents for Spravato administration for depression, reporting current depression level of 4/10 and anxiety level of 5/10, with recent self-harm without suicidal intent. Major Depressive Disorder Assessment: Patient reports current depression level of 4/10, indicating ongoing depressive symptoms. Recent self-harm behavior without suicidal intent occurred 2 days ago, suggesting increased emotional distress. No current suicidal or homicidal ideation reported. Patient denies hallucinations, delusions, or paranoia. Appetite is reported as normal. She is currently undergoing Spravato treatment for depression management. Plan: - Administer Spravato treatment as scheduled. - Continue current medications as prescribed by primary psychiatric care provider Reny. - Scheduled next Spravato treatment for August 29, 2024. - Follow-up appointment with primary psychiatric care provider Reny scheduled for October 02, 2024. - Patient expressed understanding of risks and benefits of Spravato treatment. - Patient instructed not to drive after Spravato administration. Anxiety Assessment: Patient reports current anxiety level of 5/10, indicating moderate anxiety symptoms concurrent with depressive symptoms. Plan: - Continue current medications as prescribed by primary psychiatric care provider Reny. - Monitor anxiety symptoms during ongoing Spravato treatment for depression. Self-harm behavior Assessment: Patient reports recent self-harm behavior without suicidal intent 2 days ago. This indicates a potential increase in emotional distress or difficulty with coping mechanisms. Plan: - Monitor for recurrence of self-harm behavior. - Assess effectiveness of current treatment plan in managing emotional distress. - Continue close follow-up with Spravato treatments and primary psychiatric care provider. The note is transcribed using speech recognition software. It is a reflection of a visit with the patient. It might have some inaccuracy, including medication names and transcribing errors, though efforts have been made to correct them. 08/15/2024 Other Major Depressive Disorder Assessment: Patient presents with ongoing depression, currently rated at 5/10. Recent self-harm behavior occurred 2 days ago, though without suicidal intent. Sleep is reported as approximately 6 hours per night, and appetite is described as okay. No hallucinations, delusions, or paranoia reported. Patient is currently undergoing Spravato treatment for depression management. Plan: - Administer Spravato 84 mg as scheduled - Patient expressed understanding of Spravato risks and benefits - Patient agreed not to drive after Spravato administration - Continue current medications as prescribed by Reny (primary psychiatric care provider) - Next Spravato treatment scheduled for 08-22-2024 - Follow-up appointment with Reny scheduled for 10-02-2024 Anxiety Assessment: Patient reports current anxiety levels at 4/10. No specific anxiety-related interventions or changes were discussed during this visit. Self-harm behavior Assessment: Patient reports recent self-harm behavior occurring 2 days ago. The patient denies suicidal intent associated with this behavior. This indicates a potential increase in distress or maladaptive coping mechanisms. The note is transcribed using speech recognition software. It is a reflection of a visit with the patient. It might have some inaccuracy, including medication names and transcribing errors, though efforts have been made to correct them. 07/18/2024 Other Felipe Nuñez, a female patient with major depressive disorder, presents for esketamine administration as part of her treatment regimen. Major Depressive Disorder Assessment: Patient reports current depression severity as 4/10 and anxiety as 6/10. She denies suicidal ideation, homicidal ideation, hallucinations, delusions, or paranoia. Sleep is reported as an average of 6 hours per night, with normal appetite. Patient is currently under the care of Martha as her primary psychiatric provider. Plan: - Administer esketamine 84 MG for treatment of major depressive disorder - Patient expressed understanding of esketamine risks and benefits - Driving restrictions after medication administration explained and understood - next scheduled spravato treatment scheduled for 07-25-2024 - Follow-up visit with Reny (primary psychiatric care provider) scheduled for 07-31-2024 - Continue current medications as prescribed by primary psychiatric care provider The note is transcribed using speech recognition software. It is a reflection of a visit with the patient. It might have some inaccuracy, including medication names and transcribing errors, though efforts have been made to correct them. 06/27/2024 Other 1. Depression - Patient reports ongoing depressive symptoms. - Sleep reduced to 6 hours per night. - Plan: a. Continue current medication regimen. b. Monitor sleep patterns and their impact on mood. c. Follow up if symptoms worsen. 2. Anxiety - Patient acknowledges ongoing anxiety symptoms. - No specific anxiety-related concerns or exacerbations reported. - Plan: a. Continue current treatment approach. b. Encourage patient to report any increase in anxiety symptoms. 3. Suicidal Ideation and Self-Harm - Patient denies suicidal ideation. 4. Hallucinations, Delusions, and Paranoia - Patient denies hallucinations, delusions, or paranoia. 5. Thoughts of Harming Others - Patient denies thoughts of harming others. 6. Sleep - Patient reports 6 hours of sleep per night. - Plan: a. Monitor sleep patterns and their impact on mood. 7. Medication Management - Patient reports no new medications. - Plan: a. Continue current medication regimen. 8. Physical Complaints - Patient reports no new physical complaints. 09/05/2024 Other Depression Assessment: Patient rates current depression at 5 out of 10. Sleep has improved, with approximately 6 hours of sleep reported nightly. No suicidal ideation, hallucinations, delusions, or paranoia reported. Patient denies medication side effects or new physical complaints. Plan: - Continue medications as prescribed by Reny primary psychiatric care provider - Follow-up with Reny as scheduled for October 02, 2024 Anxiety Assessment: Patient rates current anxiety at 6 out of 10. No reported hallucinations, delusions, or paranoia. Patient denies medication side effects or new physical complaints. Plan: - Continue medications as prescribed by Reny primary psychiatric care provider - Follow-up with Reny as scheduled for October 02, 2024 The note is transcribed using speech recognition software. It is a reflection of a visit with the patient. It might have some inaccuracy, including medication names and transcribing errors, though efforts have been made to correct them. 09/12/2024 Other Major Depressive Disorder Assessment: Patient is undergoing Spravato treatment for depression. Current depression level is reported as 4 out of 10. Patient expressed understanding and commitment to Spravato treatment, including the importance of not driving after administration. Sleep is reported at approximately 6 hours per night, and appetite is normal. Patient denies suicidal ideation, self-harm thoughts, or thoughts of harming others. No hallucinations, delusions, or paranoia reported. Plan: - Administer Spravato as scheduled - Next Spravato treatment scheduled for September 19, 2024 - Continue medications as prescribed by Reny - Follow-up appointment with primary psychiatric care provider (Reny) scheduled for October 02, 2024 Anxiety Assessment: Patient reports current anxiety level as 4 out of 10. No specific anxiety-related symptoms or concerns were discussed in detail during this visit. Plan: - Continue current treatment approach (specific interventions not discussed) The note is transcribed using speech recognition software. It is a reflection of a visit with the patient. It might have some inaccuracy, including medication names and transcribing errors, though efforts have been made to correct them. 07/31/2024 Other Declines need for medication adjustment -monitor weight gain, discussed I do not want to decrease lithium at this time given recent stressors, current depressive state. Can consider decrease once depression better managed Patient educated on all medications including potential benefits, side effects, risks. Educated on proper dosing schedule and importance of compliance. Continue esketamine treatments weekly [place] PDMP report checked and consistent with prescription history, no controlled substance prescriptions from other providers. -Assessment and treatment plan reviewed with patient. -Compliance with treatment plan importance discussed. -Discussed the risks/benefits of this medication -Discussed medication side effects. -Contact office if symptoms worsen. -Discussed that it can take up to 6-8 weeks to see full therapeutic effects of psychotropic medications. -Crisis prevention hotline 161. Plan Of Treatment Pending Test Test Name Order Date Vitamin B12 and Folate 01/01/2024 Iron, Serum 01/01/2024 Hemoglobin A1c 01/01/2024 CBC With Differential/Platelet [place] ([place]), Serum 01/01/2024 Vitamin D, 1,25 Dihydroxy 01/01/2024 TSH+Free T4 01/01/2024 Comp. Metabolic Panel (14) 01/01/2024 Next Appt Details Provider Name:Talib De La Rosa, 09/26/2024 08:00:00 AM, [address], [facility] [address] [place], [address], Provider Name:Talib De La Rosa, 10/03/2024 08:00:00 AM, [address], [address], [address], Provider Name:Reny sorto, 10/07/2024 04:15:00 PM, [address], [place], [address], Provider Name:Talib De La Rosa, 10/10/2024 10:00:00 AM, [address], [place], [address], Provider Name:Talib De La Rosa, 10/24/2024 08:00:00 AM, [facility], [place], [address], Provider Name:Talib De La Rosa, 10/31/2024 08:00:00 AM, [facility] [address], [place], [address], Provider Name:Talib De La Rosa, 11/07/2024 08:00:00 AM, [facility] [address], [place], [address], Provider Name:Talib De La Rosa, 11/14/2024 08:00:00 AM, [facility] [address], [facility] [address], [place], [address], Provider Name:Talib De La Rosa, 11/21/2024 08:00:00 AM, [facility] [address], [address] [place] [address], [place], [address], Provider Name:Talib De La Rosa, 11/28/2024 08:00:00 AM, [facility] [address], [facility] [address], [place], [address], Provider Name:Reny sorto, 12/04/2024 03:00:00 PM, [facility] [address], [address] [address], [place], [address], Provider Name:Talib De La Rosa, 12/05/2024 08:00:00 AM, [facility] [address], [address], [address], Provider Name:Talib De La Rosa, 12/12/2024 08:00:00 AM, [facility] [address], [facility] [address], [place], [address], Insurance Providers Payer Name Payer Address Payer Phone Subscriber Number Group Number Insured Name Patient Relationship to Insured Coverage Start Date Coverage End Date [facility] [address] [place] [address] [id number] MEENA ROOT Spouse - patient is the spouse of the insured Medications Administered Medication Instructions Date of Administration Dosage Notes Spravato (84 MG Dose) 09/20/2023 84 mg Spravato (84 MG Dose) 10/02/2023 84 mg Spravato (84 MG Dose) 10/09/2023 84 mg Spravato (84 MG Dose) 10/15/2023 84 mg Spravato (84 MG Dose) 10/23/2023 84 mg Spravato (84 MG Dose) 10/30/2023 84 mg Spravato (84 MG Dose) 11/13/2023 84 mg Spravato (84 MG Dose) 11/20/2023 84 mg Spravato (84 MG Dose) 11/30/2023 84 mg Spravato (84 MG Dose) 12/07/2023 84 mg Spravato (84 MG Dose) 12/14/2023 84 mg Spravato (84 MG Dose) 12/28/2023 84 mg Spravato (84 MG Dose) 01/04/2024 84 mg Spravato (84 MG Dose) 01/14/2024 84 mg Spravato (84 MG Dose) 02/15/2024 84 mg Spravato (84 MG Dose) 03/28/2024 84 mg Spravato (84 MG Dose) 04/11/2024 84 mg Spravato (84 MG Dose) 04/25/2024 84 mg Spravato (84 MG Dose) 05/09/2024 84 mg Spravato (84 MG Dose) 06/06/2024 84 mg Spravato (84 MG Dose) 06/13/2024 84 mg Spravato (84 MG Dose) 06/20/2024 84 mg Spravato (84 MG Dose) 06/27/2024 84 mg Spravato (84 MG Dose) 07/04/2024 84 mg Spravato (84 MG Dose) 07/11/2024 84 mg Spravato (84 MG Dose) 07/18/2024 84 mg Spravato (84 MG Dose) 07/25/2024 84 mg Spravato (84 MG Dose) 08/01/2024 84 mg Spravato (84 MG Dose) 08/08/2024 84 mg Spravato (84 MG Dose) 08/15/2024 84 mg Spravato (84 MG Dose) 08/22/2024 84 mg Spravato (84 MG Dose) 08/29/2024 84 mg Spravato (84 MG Dose) 09/05/2024 84 mg Spravato (84 MG Dose) 09/12/2024 84 mg Medical (General) History Medical History History ICD Code Problems: Generalized anxiety disorder Primary insomnia Severe recurrent major depression withou t psychotic features Surgical History Surgery Date(Month/Year) Reconstructive surgery 05/29/2006 Other 01/26/2021 Hospitalization History Reason Date(Month/Year) [facility] 2022 for SI
[2024-10-07 13:17] VITALS: BMI 37.2
--- NOTE | 2024-10-07 13:17 | WPDHOMESLEEP ---
Sleep Study - Home Unattended Date of Study: 09/19/24 Ordering Provider: Shruti Aldana MD Interpreting Provider: Yanni Melchor DO Home Sleep Study Type: Watch PAT Height: 1.6 m Weight: 95.254 kg Body Mass Index: 37.2 Neck Circumference (inches): 14.75 [place]: 13 Reason for Sleep Study Daytime hypersomnia Sleep History A 34-year-old female had a sleep study ordered by her knife sharpener for evaluation of sleep apnea. The patient admits to excessive daytime sleepiness, trouble falling asleep, trouble staying asleep, and snoring loudly. She denies having interruptions in breathing while asleep. She denies choking or gasping at night. She denies having trouble breathing on her back. She denies morning headaches. She does have a dry or sore mouth/throat in the morning. She denies nocturnal heartburn. She urinates 3 times throughout the night. She does have difficulty returning to sleep if she wakes up throughout the night. She does use hypnotics or sedatives. She does feel anxious about sleep. She does feel tired or sleepy during the day. She does feel tired in the morning. She does have the urge to fall asleep during the day. She denies feeling drowsy while driving. She denies sleep paralysis, cataplexy, and hypnagogic/hypnopompic hallucinations. She does clench or grind her teeth. She denies kicking or jerking her legs excessively. She denies having a restless feeling in her legs. She goes to bed at 10 p.m. every night. It takes her 75 minutes to fall asleep. She gets 5 hours of sleep on workdays and 8 hours on her days off. Her sleep is not at all restorative on her days off. She denies taking any planned naps. She denies dream enactment behavior. She denies sleepwalking. She consumes 1 to 2 cups of caffeinated beverages per day. She denies tobacco and alcohol use. She exercises 3 to 4 nights per week. [facility] Past Medical History Medical History Foot fracture, left Lymphocytic colitis Anxiety Sinusitis Psoriasiform dermatitis Gestational HTN Overweight (BMI 25.0-29.9) Musculoskeletal pain Surgical History Surgical History History of knee surgery left ACL repair Family History Family History Grandparent Congestive heart failure Hypertension Mother Hypertension Grandparent Diabetes mellitus Social History Social History Smoking status: Never smoker Second hand tobacco smoke exposure: No Alcohol intake: current Alcohol use details: social Substance use: never Substance use type: does not use Lack of Transportation: No Lack of Food: Never True Current Housing: I Have Housing Concerned About Future Housing: No Difficulty Paying Gas/Electric Bills: No Difficulty Paying for Meds: No Currently Unemployed: No Education: Bachelor's Degree Difficulty w/ Childcare or Family Care: No Living arrangements: with family Occupation/Education: occupation Gender identity (if verbalized by the patient): Female Sexual Orientation (if Verbalized by the Patient): Straight or Heterosexual Spiritual care concerns: No Agree to blood products: Yes Medications Home Medications ?Medication ?Instructions ?Recorded ?Confirmed ?Type norethindrone acetate 1.5 1 tablet PO DAILY 12/21/22 07/16/24 History mg-ethinyl estradiol 30 mcg tablet (Junel) guselkumab 100 mg/mL subcutaneous 100 mg subcut ONCE 02/02/23 07/16/24 History auto-injector (Tremfya) clonazepam 1 mg tablet 1 mg PO BID 03/07/23 07/16/24 History bupropion HCl 150 mg 24 hr tablet, 150 mg PO QAM 04/04/23 07/16/24 History extended release lithium carbonate 150 mg capsule 150 mg PO DIRECTED 06/06/23 07/16/24 History doxepin 25 mg capsule 25 mg PO DAILY 07/16/24 07/16/24 History esketamine 84 mg (28 mg x 3) nasal See Rx Instructions intranasal 07/16/24 07/16/24 History spray (Spravato) .COMPLEX fluoxetine 40 mg capsule 40 mg PO DAILY 07/16/24 07/16/24 History Sleep Procedure The sleep study was completed using WatchPAT a technically adequate device with seven channels: peripheral arterial tone, actigraphy, body position, snore, respiratory movement, pulse oximetry, sleep staging, and heart rate. Prior to using the device, the patient received verbal and written instructions for its application and was provided with the help desk phone number for additional telephonic instruction with 24-hour availability of qualified personnel to answer questions. The study was scored using CMS guidelines. Sleep Architecture The total recording time is 9 hrs, 28 min. The total sleep time is 8 hrs, 45 min. Sleep latency is 10 minutes. REM latency is 107 minutes. The patient had 8 episodes of waking. Sleep architecture shows 12.7% deep sleep, 68.8% light sleep, and (as % Total Sleep Time) showed NREM (Light 68.8%; Deep 12.7%), and a 18.4% stage REM. The patient spent 100.0% of total sleep time in the supine position. Sleep efficiency was 92.43. Respiratory Analysis The overall AHI (pAHI 4%:) is 0.6. The overall AHI (pAHI 3%:) is 6.3. The central AHI is 0.2. The AHI was 4.6 in NREM and 13.7 in REM sleep. The AHI was 6.3 in Supine and N/A in Non-supine sleep. Percent of [place] respirations is 0.0. Oximetry Data The oxygen desaturation index (DION 4%:) is 0.9. The mean saturation is 95%, and the lowest saturation is 86%. Time spent with saturation < 88% is 0.0 minutes. Snoring Profile Snoring average intensity is 40 dB. The patient snored above 45 decibels for 8.4 minutes, 1.6% of sleep time. Cardiac Profile The average pulse rate is 73 beats per minutes. The lowest pulse rate is 53 bpm. The highest pulse rate reported is 102 bpm. Atrial fibrillation was not suspected. Premature beats occur <0.1 per minute. Assessment and Plan Assessment and Plan (1) Hypersomnolence: Code(s): G47.10 - Hypersomnia, unspecified Status: Acute Assessment and Plan: The patient had an overall AHI of 0.6 with desaturation down to 86%. This is not consistent with sleep disordered breathing. Due to the severity of the patient's hypersomnia, further evaluation is warranted. I recommend that the patient have a split study with the use of a hypnotic to ensure we obtain enough sleep data. Data The data obtained during this sleep study is adequate for interpretation. Certification This sleep study has been reviewed by a board certified sleep medicine physician.
== END 2024-09-22 10:09 | disposition home or self-care (01) ==
LOC: ANHCSM 08:14
PROVIDERS: PCP Family Medicine; Visit Provider Internal Medicine Critical Care Medicine
DX: G47.10 Hypersomnia, unspecified (principal)
CPT/HCPCS: 95800

== ENCOUNTER 2024-11-27 08:50 | Outpatient (CLI) | payer BC, SELFPAY ==
--- OUTSIDE RECORDS SUMMARY | 2024-11-27 08:57 | XMS_ITS | Clinical Summary ---
Author Organization [facility] Address [address] [place] [address] Care Team Providers Care Sign Hanger Name Role Phone Bushra Bailey MD Primary Care Provider [phone] Allergies No known active allergies Medications 05/05 1-20 MG-MCG tablet Take 1 tablet by mouth nightly. 05/30/2020 Active Active Problems No known active problems Immunizations Immunization Administration Dates Next Due MODERNA COVID-19 (12+) MRNA, LNP-S, PF, 100 MCG/ 0.5 ML DOSE 06/29/2020,06/01/2020 Family History Medical History Relation Comments No Known Problems Brother 1 No Known Problems Brother 2 No Known Problems Father Hypertension Mother No Known Problems Son 1 No Known Problems Son 2 Relation Status Comments Brother 1 Alive Brother 2 Alive Father Alive Mother Alive Son 1 Alive Son 2 Alive Social History Tobacco Use Types Packs/Day Years Used Date Smoking Tobacco: Never Smokeless Tobacco: Never Alcohol Use Standard Drinks/Week Comments Yes 1.7 (1 standard drink = 0.6 oz p ure alcohol) social Comments No Sex and Gender Information Value Date Recorded Sex Assigned at Not on file Legal Sex Female 4:01 PM WORD PROCESSING SUPERVISOR Gender Identity Not on file Sexual Orientation Not on file Last Filed Vital Signs Vital Sign Reading Time Taken Comments Blood Pressure 137/79 04/05/2021 9:37 AM WORD PROCESSING SUPERVISOR Pulse 69 04/05/2021 9:37 AM WORD PROCESSING SUPERVISOR Temperature 36.9 C (98.5 F) 04/05/2021 9:37 AM WORD PROCESSING SUPERVISOR Respiratory Rate 18 04/05/2021 9:37 AM WORD PROCESSING SUPERVISOR Oxygen Saturation 98% 04/05/2021 9:37 AM WORD PROCESSING SUPERVISOR Inhaled Oxygen Concentration - - Weight 80.9 kg (178 lb 5.6 oz) 04/05/2021 6:00 A M WORD PROCESSING SUPERVISOR Height 160 cm (5' 3) 04/05/2021 6:00 AM WORD PROCESSING SUPERVISOR Body Mass Index 31.59 04/05/2021 6:00 AM WORD PROCESSING SUPERVISOR Plan of Treatment Health Maintenance Due Date Last Done Comments Cervical Cancer Screening Pa p Smear (Age 30 to 64) Every 3 Years 1989 Annual Physical 01/19/1992 Hepatitis C 2007 DTaP, Tdap and Td Vaccines ( 1 - Tdap) 01/19/2008 Hepatitis B Vaccines (1 of 3 - 19+ 3-dose series) 01/19/2008 HPV Vaccines (1 - 3-dose SCD M series) 01/19/2016 Cervical Cancer Screening Pa p with HPV Testing (Age 30 to 64) Every 5 Years 2019 Cervical Cancer Screening wi th HPV 2019 COVID-19 Vaccine (2023-2 5 season) 2023 04/18/2021, 06/29/2020, 06/01/2020 Meningococcal B Vaccine Aged Out No l onger eligible based on patient's age to complete this topic Meningococcal Vaccine Aged Out No deven rosette eligible based on patient's age to complete this topic Pneumococcal Vaccine: Pediatrics (0 to 5 Years) and At-Risk Patients (6 to 49 Years) Aged Out No longer eligible b ased on patient's age to complete this topic RSV Immunizations Under 20 Months Aged Out No longer eligible b ased on patient's age to complete this topic Insurance [facility] Stacey Benjamin[address] Care Teams Sign Hanger Relationship Specialty Start Date End Date Bushra Bailey MD [address] [place] [address] PCP - General FAMILY PRACTICE 03/29/21
--- OUTSIDE RECORDS SUMMARY | 2024-11-27 08:57 | XMS_ITS | Patient Health Record ---
Author Organization [facility] As [employer] [facility] Address [address] [place] [address] Care Team Providers Care Customer Care Consultant Name Role Phone Bushra Bailey MD Primary Care Provider Reny Montgomery Unavailable [phone] Kobi Loomis Unavailable [phone] Talib De La Rosa Unavailable [phone] Allergies No Known Allergies Reason For Referral No Information Medications Medication SIG (Take, Route, Frequency, Duration) Notes Start Date End Date Status Doxepin HCl 25 MG 1-2 capsule at bedtime Orally Once a day; Duration: 30 days As needed Active Spravato (84 MG Dose) 28 MG/DEVICE 3 sprays in each nostril Nasally once a week; Duration: 1 days 11/10/2024 Active clonazePAM 1 MG TAKE 1 TABLET BY TY TH EVERY DAY NEEDED; Duration: 11/10/2024 Active Junel .5 1.5-30 MG-MCG TAKE 1 TABLET BY MOUTH EVERY DAY Oral; Duration: 28 Days Active Tremfya 100 MG/ML Subcutaneous; Durati on: 56 Days Active Oseltamivir Phosphate 75 MG Oral; Duration: 5 Days Active FLUoxetine HCl 40 MG 1 capsule Oral Once a day; Duration: 90 days Active Igo Carbonate 150 MG 1 capsule at be dtime Oral once a day; Duration: 30 days Active Igo Carbonate 150 MG 1 capsule at be dtime Oral once a day; Duration: 30 days Active busPIRone HCl 10 MG TAKE 1 TABLET BY TY TH 3 TIMES A DAY FOR 90 DAYS; Duration: 90 Active Immunizations Vaccine Route Administration Date Status Comme [facility] Moderna Covid-19 Vaccine 1st dose Unknown 06/01/2020 [...] Severe recurrent major depression without psychotic features (21562918) Major depressive disorder, recurrent severe without psychotic features (F33.2) Active confirmed Problem Generalized anxiety disorder (21325003) Generalized anxiety disorder (F41.1) Active confirmed Problem Primary insomnia (7797092) Primary insomnia (F51.01) Active confirmed Problem Screening for cardiovascular system disease (665701227) Encounter for screening for cardiovascular disorders (Z13.6) Active confirmed Problem Generalized anxiety disorder (23798906) AKOSUA (generalized anxiety disorder) (F41.1) Active confirmed Problem Non-suicidal self-harm (R45.88) Active confirmed Problem Self-mutilation (283585358) Self-mutilation (Z72.89) Active confirmed Problem Insomnia disorder related to another mental disorder (99522259) Psychophysiological insomnia (F51.04) Active confirmed Problem Feeling suicidal (430076575) Passive suicidal ideations (R45.851) Active confirmed Vital Signs Heart Rate 100 /min 11/14/2024 Oximetry 96 % 11/14/2024 Height-cm 160.02 cm 11/14/2024 Blood pressure diastolic 90 mm Hg 11/14/2024 Weight-kg 102.51 kg 10/07/2024 Height 63.00 in 11/14/2024 Blood pressure systolic 138 mm Hg 11/14/2024 Weight 226 lbs 10/07/2024 BMI 40.03 kg/m2 10/07/2024 Encounters Encounter Location Date Provider Diagnosis [facility] [employer] [address] [place] [address] 11/28/2023 Kobi Ebonie Major depressive dis order, recurrent severe without psychotic features F33.2 [facility] [address] [place] [address] 11/29/2023 Kobi Ebonie Major depressive dis order, recurrent severe without psychotic features F33.2 [facility], [facility] [address] [place] [address] 11/30/2023 Talib Clubb Major depressive dis order, recurrent severe without psychotic features F33.2 [facility], [facility] [address] [place] [address] 12/03/2023 Kobi Ebonie Major depressive dis order, recurrent severe without psychotic features F33.2 [facility], [facility] [address] [place] [address] 12/04/2023 Kobi Ebonie Major depressive dis order, recurrent severe without psychotic features F33.2 [facility], [facility] [address] [place] [address] 12/05/2023 Kobi Ebonie Major depressive dis order, recurrent severe without psychotic features F33.2 [facility], [facility] [address] [place] [address] 12/06/2023 Kobi Ebonie Major depressive dis order, recurrent severe without psychotic features F33.2 [facility], [facility] [address] [place] [address] 12/07/2023 Talib Clubb Major depressive dis order, recurrent severe without psychotic features F33.2 and Self-mutilation Z72.89 [facility], [facility] [address] [place] [address] 12/10/2023 Kobi Ebonie Major depressive dis order, recurrent severe without psychotic features F33.2 [facility], [facility] [address] [place] [address] 12/11/2023 Kobi Ebonie Major depressive dis order, recurrent severe without psychotic features F33.2 [facility], [facility] [address] [place] [address] 12/12/2023 Kobi Ebonie Major depressive dis order, recurrent severe without psychotic features F33.2 [facility], [facility] [address] [place] [address] 12/13/2023 Kobi Ebonie Major depressive dis order, recurrent severe without psychotic features F33.2 [facility], [facility] [address] [place] [address] 12/14/2023 Talib Clubb Major depressive dis order, recurrent severe without psychotic features F33.2 ; AKOSUA (generalized anxiety disorder) F41.1 and Psychophysiological insomnia F51.04 [facility], [facility] [address] [place] [address] 12/18/2023 Kobi Ebonie Major depressive dis order, recurrent severe without psychotic features F33.2 [facility], [facility] [address] [place] [address] 12/19/2023 Kobi Ebonie Major depressive dis order, recurrent severe without psychotic features F33.2 [facility], [facility] [address] [place] [address] 12/20/2023 Kobi Ebonie Major depressive dis order, recurrent severe without psychotic features F33.2 [facility], [facility] [address] [place] [address] 12/24/2023 Kobi Ebonie Major depressive dis order, recurrent severe without psychotic features F33.2 [facility], [facility] [address] [place] [address] 12/25/2023 Kobi Ebonie Major depressive dis order, recurrent severe without psychotic features F33.2 [facility], [facility] [address] [place] [address] 12/26/2023 Kobi Ebonie Major depressive dis order, recurrent severe without psychotic features F33.2 [facility], [facility] [address] [place] [address] 12/27/2023 Kobi Ebonie Major depressive dis order, recurrent severe without psychotic features F33.2 [facility], [facility] [address] [place] [address] 12/28/2023 Talib Clubb Major depressive dis order, recurrent severe without psychotic features F33.2 [facility], [facility] [address] [place] [address] 12/31/2023 Kobi Ebonie Major depressive dis order, recurrent severe without psychotic features F33.2 [facility], 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 [address] [place] [address] 01/01/2024 Kobi Ebonie Major depressive dis order, recurrent severe without psychotic features F33.2 [facility], [facility] [address] [place] [address] 01/02/2024 Kobi Ebonie Major depressive dis order, recurrent severe without psychotic features F33.2 [facility], [facility] [address] [place] [address] 01/03/2024 Kobi Ebonie Major depressive dis order, recurrent severe without psychotic features F33.2 [facility] [address] [place] [address] 01/04/2024 Talib Clubb Major depressive dis order, recurrent severe without psychotic features F33.2 and Suicidal thoughts R45.851 [facility], [facility] [address] [place] [address] 01/07/2024 Kobi Ebonie Major depressive dis order, recurrent severe without psychotic features F33.2 [facility], [facility] [address] [place] [address] 01/08/2024 Kobi Ebonie Major depressive dis order, recurrent severe without psychotic features F33.2 [facility], [facility] [address] [place] [address] 01/09/2024 Kobi Ebonie Major depressive dis order, recurrent severe without psychotic features F33.2 [facility], [facility] [address] [place] [address] 01/10/2024 Kobi Ebonie Major depressive dis order, recurrent severe without psychotic features F33.2 [facility], [facility] [address] [place] [address] 01/11/2024 Kobi Ebonie Major depressive dis order, recurrent severe without psychotic features F33.2 [facility], [facility] [address] [place] [address] 01/14/2024 Talib Clubb Major depressive dis order, recurrent severe without psychotic features F33.2 ; Suicidal thoughts R45.851 and Self-mutilation Z72.89 [facility], [facility] [address] [place] [address] 01/23/2024 Kobi Ebonie Major depressive dis order, recurrent severe without psychotic features F33.2 [facility], [facility] [address] [place] [address] 01/24/2024 Kobi Ebonie Major depressive dis order, recurrent severe without psychotic features F33.2 [facility], [facility] [address] [place] [address] 01/29/2024 Kobi Ebonie Major depressive dis order, recurrent severe without psychotic features F33.2 [facility], [facility] [address] [place] [address] 01/30/2024 Kobi Ebonie Major depressive dis order, recurrent severe without psychotic features F33.2 [facility], [facility] [address] [place] [address] 01/31/2024 Kobi Ebonie Major depressive dis order, recurrent severe without psychotic features F33.2 [facility], [facility] [address] [place] [address] 02/05/2024 Kobi Ebonie Major depressive dis order, recurrent severe without psychotic features F33.2 [facility], [facility] [address] [place] [address] 02/06/2024 Kobi Ebonie Major depressive dis order, recurrent severe without psychotic features F33.2 [facility], [facility] [address] [place] [address] 02/08/2024 Kobi Ebonie Major depressive dis order, recurrent severe without psychotic features F33.2 and Primary insomnia F51.01 [facility], [facility] [address] [place] [address] 02/08/2024 Kobi Ebonie Major depressive dis order, recurrent severe without psychotic features F33.2 [facility], [facility] [address] [place] [address] 02/15/2024 Talib Clubb Major depressive dis order, recurrent severe without psychotic features F33.2 [facility], [facility] [address] [place] [address] 03/28/2024 Talib Clubb Major depressive dis order, recurrent severe without psychotic features F33.2 [facility] [employer], [facility] [address] [place] [address] 04/11/2024 Talib Clubb Major depressive dis order, recurrent severe without psychotic features F33.2 [facility] [address] [place] [address] 04/25/2024 Talib Clubb Major depressive dis order, recurrent severe without psychotic features F33.2 and Hypertension, unspecified type 401.9 [facility] [address] [place] [address] 05/09/2024 Talib Clubb Major depressive dis order, recurrent severe without psychotic features F33.2 and Passive suicidal ideations R45.851 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 [facility] [address] [place] [address] 06/06/2024 Talib Clubb Major depressive dis order, recurrent severe without psychotic features F33.2 and Passive suicidal ideations R45.851 [facility] [address] [place] [address] 06/13/2024 Talib Clubb Major depressive dis order, recurrent severe without psychotic features F33.2 and Passive suicidal ideations R45.851 [facility] [address] [place] [address] 06/20/2024 Talib Clubb Major depressive dis order, recurrent severe without psychotic features F33.2 and Passive suicidal ideations R45.851 [facility] [employer], [facility] [address] [place] [address] 06/27/2024 Talib Clubb Major depressive dis order, recurrent severe without psychotic features F33.2 [facility] [employer], [facility] [address] [place] [address] 07/04/2024 Talib Clubb Major depressive dis order, recurrent severe without psychotic features F33.2 ; Encounter for screening for cardiovascular disorders Z13.6 and Dietary counseling and surveillance Z71.3 [facility] [place] [address] [facility] [address] [place] [address] 07/11/2024 Talib Clubb Major depressive dis order, recurrent severe without psychotic features F33.2 and Encounter for screening for cardiovascular disorders Z13.6 [facility] [place] [address] [facility] [address] [place] [address] 07/18/2024 Talib Clubb Major depressive dis order, recurrent severe without psychotic features F33.2 and Encounter for screening for cardiovascular disorders Z13.6 [facility] [place] [address] [facility] [address] [place] [address] 07/25/2024 Talib Clubb Major depressive dis order, recurrent severe without psychotic features F33.2 ; Non-suicidal self-harm R45.88 ; Encounter for screening for cardiovascular disorders Z13.6 and Dietary counseling and surveillance Z71.3 [facility] [place] [address] [address] 07/31/2024 Reny Kurmatt Encounter for screen ing for cardiovascular disorders Z13.6 ; Encounter for screening for depression Z13.31 ; Major depressive disorder, recurrent severe without psychotic features F33.2 ; Non-suicidal self-harm R45.88 ; Dietary counseling and surveillance Z71.3 ; Generalized anxiety disorder F41.1 and Primary insomnia F51.01 [facility] [employer] [place] [address] [address] 08/01/2024 Talib Clubb Major depressive dis order, recurrent severe without psychotic features F33.2 ; Encounter for screening for cardiovascular disorders Z13.6 and Non-suicidal self-harm R45.88 [facility] [employer] [place] [address] [facility] [address] [place] [address] 08/08/2024 Reny Kurilla Major depressive dis order, recurrent severe without psychotic features F33.2 and Encounter for screening for cardiovascular disorders Z13.6 [facility] [employer] [place] [address] [facility] [address] [place] [address] 08/15/2024 Talib Clubb Major depressive dis order, recurrent severe without psychotic features F33.2 ; Non-suicidal self-harm R45.88 ; Encounter for screening for cardiovascular disorders Z13.6 and Dietary counseling and surveillance Z71.3 [facility] [employer] [facility] [address] [place] [address] 08/22/2024 Talib Clubb Major depressive dis order, recurrent severe without psychotic features F33.2 ; Non-suicidal self-harm R45.88 ; Generalized anxiety disorder F41.1 ; Encounter for screening for cardiovascular disorders Z13.6 and Dietary counseling and surveillance Z71.3 [facility] [employer] [facility] [address] [place] [address] 08/29/2024 Talib Clubb Major depressive dis order, recurrent severe without psychotic features F33.2 and Encounter for screening for cardiovascular disorders Z13.6 [facility] [employer] [facility] [address] [place] [address] 09/05/2024 Talib Clubb Major depressive dis order, recurrent severe without psychotic features F33.2 and Encounter for screening for cardiovascular disorders Z13.6 [facility] [employer] [facility] [address] [place] [address] 09/12/2024 Talib Clubb Major depressive dis order, recurrent severe without psychotic features F33.2 ; Encounter for screening for cardiovascular disorders Z13.6 and Generalized anxiety disorder F41.1 [facility] [employer] [facility] [address] [place] [address] 09/19/2024 Talib Clubb Major depressive dis order, recurrent severe without psychotic features F33.2 ; Encounter for screening for cardiovascular disorders Z13.6 ; Encounter for screening for depression Z13.31 and Generalized anxiety disorder F41.1 [facility] [employer] [place] [address] [place] [address] 09/26/2024 Talib Clubb Major depressive dis order, recurrent severe without psychotic features F33.2 ; Encounter for screening for cardiovascular disorders Z13.6 and Generalized anxiety disorder F41.1 [facility] [employer] [facility] [address] [place] [address] 10/03/2024 Talib Clubb Encounter for screen ing for depression Z13.31 ; Major depressive disorder, recurrent severe without psychotic features F33.2 ; Generalized anxiety disorder F41.1 and Encounter for screening for cardiovascular disorders Z13.6 [facility] [employer] [place] [address] [place] [address] 10/07/2024 Reny Damon Major depressive dis order, recurrent severe without psychotic features F33.2 ; Non-suicidal self-harm R45.88 ; Generalized anxiety disorder F41.1 ; Primary insomnia F51.01 ; Encounter for screening for cardiovascular disorders Z13.6 ; Dietary counseling and surveillance Z71.3 and Encounter for screening for depression Z13.31 [facility] [employer] [place] [address] [facility] [address] [place] [address] 10/10/2024 Talib Clubb Major depressive dis order, recurrent severe without psychotic features F33.2 ; Non-suicidal self-harm R45.88 ; Generalized anxiety disorder F41.1 ; Primary insomnia F51.01 and Encounter for screening for cardiovascular disorders Z13.6 [place] [address] [facility] [address] [place] [address] 10/16/2024 Talib Clubb Major depressive dis order, recurrent severe without psychotic features F33.2 ; Encounter for screening for cardiovascular disorders Z13.6 ; Non-suicidal self-harm R45.88 ; Generalized anxiety disorder F41.1 and Primary insomnia F51.01 [facility] [place] [address] [facility] [address] [place] [address] 10/24/2024 Talib Clubb Major depressive dis order, recurrent severe without psychotic features F33.2 ; Generalized anxiety disorder F41.1 ; Primary insomnia F51.01 and Non-suicidal self-harm R45.88 [facility] [employer] [place] [address] [facility] [address] [place] [address] 10/31/2024 Talib Clubb Major depressive dis order, recurrent severe without psychotic features F33.2 ; Generalized anxiety disorder F41.1 ; Primary insomnia F51.01 and Non-suicidal self-harm R45.88 [facility] [employer] [place] [address] [place] [address] 11/07/2024 Talib Clubb Major depressive dis order, recurrent severe without psychotic features F33.2 ; Generalized anxiety disorder F41.1 ; Primary insomnia F51.01 and Non-suicidal self-harm R45.88 [facility] [employer] [place] [address] [facility] [address] [place] [address] 11/14/2024 Talib Clubb Major depressive dis order, recurrent severe without psychotic features F33.2 ; Generalized anxiety disorder F41.1 ; Primary insomnia F51.01 ; Encounter for screening for cardiovascular disorders Z13.6 and Dietary counseling and surveillance Z71.3 [facility], [facility] [address] [place] [address] 11/21/2024 Talib Clubb [facility], [facility] [address] [place] [address] 11/30/2023 Reny Damon AKOSUA (generalized anx iety disorder) F41.1 [facility], [facility] [address] [place] [address] 01/31/2024 Renyjudie Damon [facility], [facility] [address] [place] [address] 05/23/2024 Renyjudie Damon [facility], [facility] [address] [place] [address] 06/06/2024 Renyjudie Damon [facility], [facility] [address] [place] [address] 07/09/2024 Reny Kurilla Major depressive dis order, recurrent severe without psychotic features F33.2 [facility], [facility] [address] [address] [place] [address] 07/15/2024 Reny Kurilla Major depressive dis order, recurrent severe without psychotic features F33.2 [facility], [facility] [address] [place] [address] 08/22/2024 Reny Kurilla Major depressive dis order, recurrent severe without psychotic features F33.2 [facility], [facility] [address] [place] [address] 11/10/2024 Reny Kurilla Major depressive dis order, recurrent severe without psychotic features F33.2 [facility], [facility] [address] [place] [address] 2024 Renyjudie Damon [facility], [facility] [address] [place] [address] 02/14/2024 Renyjudie Damon [facility], [facility] [address] [place] [address] 02/15/2024 Reny Damon [facility], [facility] [address] [place] [address] 02/15/2024 Renyjudie Damon [facility], [facility] [address] [place] [address] 02/15/2024 Reny Damon [facility], [facility] [address] [place] [address] 03/06/2024 Renyjudie Damon [facility], [facility] [address] [place] [address] 03/18/2024 Reny Damon [facility], [facility] [address] [place] [address] 05/26/2024 Reny Damon Generalized anxiety disorder F41.1 [facility], [facility] [address] [place] [address] 08/08/2024 Reny Damon [facility], [facility] [address] [place] [address] 08/11/2024 Reny Damon [facility], [facility] [address] [place] [address] 10/08/2024 Reny Damon Major depressive dis order, recurrent severe without psychotic features F33.2 Assessments Encounter Date Diagnosis (ICD Code) Assessment Notes Treatment Notes Treatment Clinical Notes Section Notes 01/01/2024 Major depressive disorder, recurrent severe without psychotic 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) 07/09/2024 Major depressive disorder, recurrent severe without psychotic 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) 07/15/2024 Major depressive disorder, recurrent severe without psychotic 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) 08/22/2024 Major depressive disorder, recurrent severe without psychotic 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) 11/10/2024 Major depressive disorder, recurrent severe without psychotic 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) 09/26/2024 Major depressive disorder, recurrent severe without psychotic 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) continue current treatment as prescribed by primary psychiatric care provider 09/26/2024 Encounter for screening for cardiovascular disorders (ICD-10 - Z13.6) 09/19/2024 Major depressive disorder, recurrent severe without psychotic 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) continue current treatment as prescribed by primary psychiatric care provider 09/19/2024 Encounter for screening for cardiovascular disorders (ICD-10 - Z13.6) 09/12/2024 Major depressive disorder, recurrent severe without psychotic 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) continue current treatment as prescribed by primary psychiatric care provider 09/12/2024 Encounter for screening for cardiovascular disorders (ICD-10 - Z13.6) 09/05/2024 Major depressive disorder, recurrent severe without psychotic 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) continue current treatment as prescribed by primary psychiatric care provider 08/22/2024 Major depressive disorder, recurrent severe without psychotic 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) continue current treatment as prescribed by primary psychiatric care provider 10/24/2024 Major depressive disorder, recurrent severe without psychotic 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) continue current treatment as prescribed by primary psychiatric care provider 10/24/2024 Generalized anxiety disorder (ICD-10 - F41.1) 10/31/2024 Major depressive disorder, recurrent severe without psychotic 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) 10/31/2024 Generalized anxiety disorder (ICD-10 - F41.1) 11/07/2024 Major depressive disorder, recurrent severe without psychotic 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) continue current treatment as prescribed by primary psychiatric care provider 11/14/2024 Major depressive disorder, recurrent severe without psychotic 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) continue current treatment as prescribed by primary psychiatric care provider 10/03/2024 Major depressive disorder, recurrent severe without psychotic 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) continue current treatment as prescribed by primary psychiatric care provider 10/03/2024 Encounter for screening for depression (ICD-10 - Z13.31) 10/07/2024 Major depressive disorder, recurrent severe without psychotic 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) 10/07/2024 Non-suicidal self-harm (ICD-10 - R45.88) 10/08/2024 Major depressive disorder, recurrent severe without psychotic 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) 10/10/2024 Major depressive disorder, recurrent severe without psychotic 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) continue current treatment as prescribed by primary psychiatric care provider 10/16/2024 Major depressive disorder, recurrent severe without psychotic 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) continue current treatment as prescribed by primary psychiatric care provider continue current treatment as prescribed by primary psychiatric care provider 07/18/2024 Major depressive disorder, recurrent severe without [...] SPRAVATO and go away the same day. 07/25/2024 Non-suicidal self-harm (ICD-10 - R45.88) 07/25/2024 Major depressive disorder, recurrent severe without psychotic 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) 07/31/2024 Encounter for screening for cardiovascular disorders (ICD-10 - Z13.6) 08/22/2024 Non-suicidal self-harm (ICD-10 - R45.88) 08/15/2024 Major depressive disorder, recurrent severe without psychotic 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) continue current treatment as prescribed by primary psychiatric care provider 08/29/2024 Major depressive disorder, recurrent severe without [...] have been made to correct them. 08/15/2024 Non-suicidal self-harm (ICD-10 - R45.88) 08/08/2024 Major depressive disorder, recurrent severe without [...] of psychotropic medications. -Crisis prevention hotline 988. 08/01/2024 Major depressive disorder, recurrent severe without [...] have been made to correct them. 01/01/2024 Generalized anxiety disorder (ICD-10 - F41.1) Common side effects to SSRI medications include headaches, dry mouth/eye, GI upset (including indigestion, nausea, diarrhea), sleeping problems (insomnia or drowsiness), decreased libido, blurred vision, dizziness. Generally, side effects will subside or lessen with time and are common during drug initiation and dose changes. If they persist please contact the office. 01/23/2024 Major depressive disorder, recurrent severe without [...] depression. - Plan: - Continue current medications: Igo 150 mg twice a day, Buspirone 10 [...] based on recent studies and patient's response. 01/01/2024 Major depressive disorder, recurrent severe without [...] and consider treatment plan adjustments if needed. 05/09/2024 Major depressive disorder, recurrent severe without [...] as prescribed by primary psychiatric care provider. 01/02/2024 Major depressive disorder, recurrent severe without [...] hours during the day. - Recommend trying [id number] r magnesium supplement for sleep improvement. - [...] hours during the day. - Recommend trying [id number] r magnesium supplement for sleep improvement. - [...] reported paranoia, delusions, hallucinations, or physical complaints. 11/28/2023 Major depressive disorder, recurrent severe without [...] suicidal ideation. c. Encourage utilizing crisis hotline (705) if needed. 2. Generalized Anxiety Disorder - [...] Monitor for side effects or response changes. 12/18/2023 Major depressive disorder, recurrent severe without [...] without psychotic 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) 12/14/2023 Psychophysiologica l insomnia (ICD-10 - F51.04) [...] suicidal ideation. c. Encourage utilizing crisis hotline (718) if needed. 2. Generalized Anxiety Disorder - [...] Monitor for side effects or response changes. 01/14/2024 Self-mutilation (ICD-10 - Z72.89) 1. Major [...] reported paranoia, delusions, hallucinations, or physical complaints. 06/13/2024 Passive suicidal ideations (ICD-10 - R45.851) [...] If they persist please contact the office. 04/25/2024 Hypertension, unspecified type (ICD9-CM - 401.9) [...] is aware of crisis prevention hotline number (892) and encourage use if needed. - Encourage patient to discuss suicidal thoughts with therapist. - Monitor suicidal ideation during follow-ups and consider treatment plan adjustments if needed. 02/08/2024 Primary insomnia (ICD-10 - F51.01) Electronic Prior Authorization was requested for Belsomra 20 MG Tablet. Provider can order medication once approval received. Major Depressive Disorder - Assessment: Patient has completed 33 TMS sessions and reports improvement in mood and cessation of self-harm behaviors. Current PHQ-9 score is 9, indicating mild depression. - Plan: - Continue current medications: Igo 150 mg twice a day, Buspirone 10 [...] based on recent studies and patient's response. 01/01/2024 Primary insomnia (ICD-10 - F51.01) 08/01/2024 Encounter for screening for cardiovascular disorders [...] efforts have been made to correct them. 10/10/2024 Non-suicidal self-harm (ICD-10 - R45.88) 08/08/2024 Encounter for screening for cardiovascular disorders (ICD-10 - Z13.6) 08/29/2024 Encounter for screening for cardiovascular disorders (ICD-10 - Z13.6) 08/15/2024 Encounter for screening for cardiovascular disorders (ICD-10 - Z13.6) 07/25/2024 Encounter for screening for cardiovascular disorders (ICD-10 - Z13.6) 07/04/2024 Encounter for screening for cardiovascular disorders (ICD-10 - Z13.6) 07/11/2024 Encounter for screening for cardiovascular disorders (ICD-10 - Z13.6) 07/18/2024 Encounter for screening for cardiovascular disorders (ICD-10 - Z13.6) 07/31/2024 Encounter for screening for depression (ICD-10 - Z13.31) 10/07/2024 Generalized anxiety disorder (ICD-10 - F41.1) 10/03/2024 Generalized anxiety disorder (ICD-10 - F41.1) 11/14/2024 Generalized anxiety disorder (ICD-10 - F41.1) 11/07/2024 Generalized anxiety disorder (ICD-10 - F41.1) 10/31/2024 Primary insomnia (ICD-10 - F51.01) 10/24/2024 Primary insomnia (ICD-10 - F51.01) 08/22/2024 Generalized anxiety disorder (ICD-10 - F41.1) 09/05/2024 Encounter for screening for cardiovascular disorders (ICD-10 - Z13.6) 09/12/2024 Generalized anxiety disorder (ICD-10 - F41.1) 09/19/2024 Encounter for screening for depression (ICD-10 - Z13.31) 09/26/2024 Generalized anxiety disorder (ICD-10 - F41.1) 10/16/2024 Encounter for screening for cardiovascular disorders (ICD-10 - Z13.6) 10/16/2024 Non-suicidal self-harm (ICD-10 - R45.88) 09/19/2024 Generalized anxiety disorder (ICD-10 - F41.1) 08/22/2024 Encounter for screening for cardiovascular disorders (ICD-10 - Z13.6) 10/24/2024 Non-suicidal self-harm (ICD-10 - R45.88) 10/31/2024 Non-suicidal self-harm (ICD-10 - R45.88) 11/07/2024 Primary insomnia (ICD-10 - F51.01) 11/14/2024 Primary insomnia (ICD-10 - F51.01) 10/07/2024 Primary insomnia (ICD-10 - F51.01) 10/10/2024 Generalized anxiety disorder (ICD-10 - F41.1) 07/04/2024 Dietary counseling and surveillance (ICD-10 - Z71.3) 07/31/2024 Major depressive disorder, recurrent severe without [...] been made to correct them. 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) 08/15/2024 Dietary counseling and surveillance (ICD-10 - Z71.3) 07/25/2024 Dietary counseling and surveillance (ICD-10 - Z71.3) 10/10/2024 Primary insomnia (ICD-10 - F51.01) 07/31/2024 Non-suicidal self-harm (ICD-10 - R45.88) 10/16/2024 Generalized anxiety disorder (ICD-10 - F41.1) 10/07/2024 Encounter for screening for cardiovascular disorders (ICD-10 - Z13.6) 10/03/2024 Encounter for screening for cardiovascular disorders (ICD-10 - Z13.6) 11/14/2024 Encounter for screening for cardiovascular disorders (ICD-10 - Z13.6) 11/07/2024 Non-suicidal self-harm (ICD-10 - R45.88) 11/14/2024 Dietary counseling and surveillance (ICD-10 - Z71.3) 08/22/2024 Dietary counseling and surveillance (ICD-10 - Z71.3) 10/07/2024 Dietary counseling and surveillance (ICD-10 - Z71.3) 10/16/2024 Primary insomnia (ICD-10 - F51.01) 10/10/2024 Encounter for screening for cardiovascular disorders (ICD-10 - Z13.6) 07/31/2024 Dietary counseling and surveillance (ICD-10 - Z71.3) 07/31/2024 Generalized anxiety disorder (ICD-10 - F41.1) 07/31/2024 Primary insomnia (ICD-10 - F51.01) 10/07/2024 Encounter for screening for depression (ICD-10 - Z13.31) 01/01/2024 Other Decrease esketamine treatments to every [...] TMS was 18; score today is 17. 01/14/2024 Other Assessment and plan reviewed with [...] changes in mental status during follow-up appointments. 05/22/2024 Other Increase Buspar to 10mg TID [...] of psychotropic medications. -Crisis prevention hotline 988. 06/06/2024 Other 1. Major Depressive Disorder - PHQ-9: 14 - Patient rates depression as 7/10. - Reports daily thoughts of suicide or self-harm, but denies plan or intent. - Aware of crisis prevention hotline number (559). - Currently in therapy, attending sessions every Sunday. - No prior suicide attempts. - Plan: [...] development of violent ideation during follow-up visits. 06/13/2024 Other 1. Major Depressive Disorder - Patient rates depression at 10. - Patient experiences suicidal thoughts daily w/o [...] PHQ-9: 15 - Patient rates depression at 6/10. - Plan: a. Continue current medication regimen including Aptensio XR. b. Monitor for worsening of depressive symptoms. c. Encourage use of crisis prevention hotline (266) if needed. 2. Anxiety - AKOSUA-7: 8 - Patient rates anxiety at /10. -PLAN: a. Continue current medication regimen. b. Recommend practicing relaxation techniques like deep breathing exercises and progressive muscle relaxation. c. Refer for cognitive-behavi oral therapy (CBT) to address anxiety symptoms. 3. Passive Suicidal Ideation - Patient endorses passive suicidal thoughts without plan or intent. - Plan: a. Reinforce use of crisis prevention hotline (728) if suicidal thoughts worsen. b. Assess for [...] - Patient denies hallucinations, delusions, or paranoia. 06/27/2024 Other 1. Depression - Patient reports [...] - Patient reports no new physical complaints. 07/11/2024 Other Major Depressive Disorder Assessment: Patient [...] efforts have been made to correct them. 07/25/2024 Other female patient, presents for Spravato [...] SPRAVATO and go away the same day. 07/31/2024 Other Declines need for medication adjustment [...] psychotropic medications. -Crisis prevention hotline 988. 08/15/2024 Other Major Depressive Disorder Assessment: Patient [...] efforts have been made to correct them. 08/22/2024 Other Patient presents for Spravato administration [...] have been made to correct them. 09/05/2024 Other Depression Assessment: Patient rates current [...] efforts have been made to correct them. 09/19/2024 Other Major Depressive Disorder Assessment: Patient is undergoing Spravato treatment for depression. Current self-reported depression level is 4 out of 10, indicating ongoing symptoms despite treatment. Patient denies suicidal ideation, hallucinations, delusions, or paranoia. Sleep is reported at approximately 6 hours per night. Appetite is described as normal. Patient denies side effects from current medications. Plan: - Administer Spravato as scheduled - Continue medications as prescribed by primary psychiatric care providerReny - Next Spravato treatment scheduled for September 26, 2024 - Follow-up appointment with primary psychiatric care providerReny, scheduled for October 07, 2024 - Patient expressed understanding of risks and benefits of Spravato treatment - Patient instructed not to drive after Spravato administration Anxiety Assessment: Patient reports current anxiety level as 6 out of 10, suggesting moderate anxiety symptoms concurrent with depressive symptoms. Plan: - Continue current medication regimen as prescribed by primary psychiatric care providerReny - Monitor anxiety symptoms at follow-up appointments The note is transcribed using speech recognition software. It is a reflection of a visit with the patient. It might have some inaccuracy, including medication names and transcribing errors, though efforts have been made to correct them. 09/26/2024 Deepika Aguero presents for Spravato administration for treatment of depression, reporting current depression at 5/10 and anxiety at 7/10. Major Depressive Disorder Assessment: Patient reports current depression severity as 5 out of 10. She denies suicidal ideation, self-harm thoughts, or thoughts of harming others. No hallucinations, delusions, or paranoia reported. Sleep is approximately 7 hours per night, and appetite is normal. Patient expresses understanding of breast method with Spravato treatment and agrees not to drive after administration. Plan: - Administer Spravato as scheduled - Continue current medication regimen (no adjustments or changes reported) - Next Spravato treatment scheduled for October 03, 2024 - Follow-up appointment with primary psychiatric care provider Reny scheduled for October 07, 2024 Anxiety Assessment: Patient reports current anxiety level as 7 out of 10. No specific anxiety-related symptoms or triggers mentioned in the transcript. Plan: - Continue current medication regimen (no adjustments or changes reported) - Follow-up appointment with primary psychiatric care provider Reny scheduled for October 07, 2024 The note is transcribed using speech recognition software. It is a reflection of a visit with the patient. It might have some inaccuracy, including medication names and transcribing errors, though efforts have been made to correct them. 10/03/2024 Other Major Depressive Disorder Assessment: Patient presents with ongoing depression, currently rated as 4/10 in severity. PHQ-9 score of 13. Patient denies suicidal ideation, hallucinations, delusions, or paranoia. Sleep is reported at approximately 6 hours, with normal appetite. No medication side effects or recent changes reported. Plan: - administer Spravato as scheduled. - Continue current medications as prescribed by Reny - Follow-up appointment scheduled for 10/08/2023 with primary psychiatric care provider Generalized Anxiety Disorder Assessment: Patient reports current anxiety level of 6/10. AKOSUA-7 score of 7 suggests mild anxiety. Patient denies thoughts of harming others. Plan: - Continue current medications as prescribed by Reny - Follow-up appointment scheduled for 10/08/2023 with primary psychiatric care provider The note is transcribed using speech recognition software. It is a reflection of a visit with the patient. It might have some inaccuracy, including medication names and transcribing errors, though efforts have been made to correct them. 10/07/2024 Other Decrease lithium to 150mg daily due to weight gain - discussed monitoring for increase in depression, suicidal ideation and contact office if this occurs Patient educated on all medications including potential benefits, side effects, risks. Educated on proper dosing schedule and importance of compliance. [place] PDMP report checked and consistent with prescription history, no controlled substance prescriptions from other providers. Continue esketamine treatments on weekly schedule -Assessment and treatment plan reviewed with patient. -Compliance with treatment plan importance discussed. -Discussed the risks/benefits of this medication -Discussed medication side effects. -Contact office if symptoms worsen. -Discussed that it can take up to 6-8 weeks to see full therapeutic effects of psychotropic medications. -Crisis prevention hotline 988. 10/10/2024 Other Major Depressive Disorder Assessment: Patient is undergoing Spravato treatment for depression. Current self-reported depression level is 3 out of 10, indicating some improvement. Patient denies suicidal ideation, thoughts of self-harm or harm to others, and hallucinations. No reports of medication side effects or recent medication changes. Sleep and appetite are normal. Plan: - Administer Spravato as scheduled - Next Spravato treatment scheduled for 10/24/2024 - Follow-up appointment with primary psychiatric care provider Reny scheduled for 12/04/2024 - Continue current medication regimen - Patient expressed understanding of Spravato risks, benefits, and post-administrat ion driving restrictions Anxiety Assessment: Patient reports current anxiety level of 5 out of 10. No reported exacerbation of symptoms or concerns related to anxiety mentioned during this visit. Plan: - Continue monitoring anxiety symptoms - Address anxiety management at next follow-up appointment with primary psychiatric care provider The note is transcribed using speech recognition software. It is a reflection of a visit with the patient. It might have some inaccuracy, including medication names and transcribing errors, though efforts have been made to correct them. 10/16/2024 Other 1. Major Depressive Disorder - Patient rates depression at 3/10. - Sleep: 6 hours per night. - Appetite: Normal. - Plan: a. Administer Spravato (esketamine) nasal spray. b. Patient expressed understanding of risks and benefits. c. Patient instructed not to drive after administration. d. Next Spravato treatment scheduled for 10/24/2024. e. Follow-up appointment with primary psychiatric care provider Reny scheduled for 12/04/2024. 2. Anxiety - Patient rates anxiety at 5/10. - Plan: a. Continue current treatment regimen. b. Monitor anxiety symptoms at follow-up appointments. 3. Suicidal Ideation and Self-Harm - Patient denies suicidal ideation or self-harm thoughts. 4. Thoughts of Harming Others - Patient denies thoughts of harming others. 5. Hallucinations, Delusions, and Paranoia - Patient denies hallucinations, delusions, or paranoia. 6. Sleep - Patient reports 6 hours of sleep per night. 7. Appetite - Patient reports normal appetite. 10/24/2024 Other 1. Major Depressive Disorder - Patient reports depression rated 4/10. - Sleep is approximately 6 hours per night, appetite is normal. - No suicidal ideation, hallucinations, delusions, or paranoia reported. - Patient denies any medication side effects or recent changes. - Plan: a. Administer Spravato as scheduled. b. Continue current medications. c. Follow-up appointment scheduled for 12-04-2024 with Reny. d. Next Spravato treatment scheduled for 10-31-2024. 2. Anxiety - Patient reports anxiety rated 5/10. - No suicidal ideation, hallucinations, delusions, or paranoia reported. - Plan: a. Continue current medications. b. Monitor anxiety levels at follow-up appointments. 3. Spravato Administration - Plan: a. Administer Spravato as scheduled. b. Patient expressed understanding of risks, benefits, and post-administrat ion driving restrictions. 10/31/2024 Other 1. Depression and Anxiety - Patient rates depression at 4/10. - Patient rates anxiety at 5/10. - Plan: a. Proceed with first Spravato administration b. Confirm patient's understanding of risks, benefits, and not driving after administration. c. Schedule next Spravato treatment for 11-07-2024. d. Schedule follow-up appointment with primary psychiatric care provider Reny for 12-04-2024. 2. Suicidal Ideation and Self-Harm - Patient denies suicidal ideation and thoughts of self-harm. 3. Thoughts of Harming Others - Patient denies thoughts of harm to others. 4. Hallucinations, Delusions, and Paranoia - Patient denies hallucinations, delusions, and paranoia. 5. Sleep - Patient reports approximately 6 hours of sleep per night. 6. Appetite - Patient reports normal appetite. 7. Medication Management - Patient reports no side effects from current medications. - No new medication changes or adjustments since last visit. Follow-up: - Next Spravato treatment scheduled for 11-07-2024. - Follow-up appointment with primary psychiatric care provider Reny scheduled for 12-04-2024. continue current treatment as prescribed by primary psychiatric care provider 11/07/2024 Other 1. Depression with Anxiety - Patient rates depression at 5/10. - Patient rates anxiety at 7/10. - Plan: a. Administer Spravato as scheduled. b. Confirm patient's understanding of Spravato risks, benefits, and post-administra tion driving restrictions. c. Continue current medication regimen. 2. Suicidal Ideation and Self-Harm - Patient denies suicidal ideation or self-harm thoughts. 3. Thoughts of Harming Others - Patient denies thoughts of harming others. 4. Hallucinations, Delusions, and Paranoia - Patient denies hallucinations, delusions, or paranoia. 5. Sleep - Patient reports approximately 6 hours of sleep per night. 6. Appetite - Patient reports normal appetite. 7. Medication Management - No medication side effects or recent changes reported. - Plan: a. Continue current medication regimen. Follow-up: - Schedule next Spravato treatment for 11/14/2024. - Follow-up appointment with primary psychiatric care provider, Reny, on 12/04/2024. 11/14/2024 Other 1. Major Depressive Disorder - Patient reports depression severity as 3/10. - Patient denies suicidal ideation, self-harm thoughts, or thoughts of harming others. - No hallucinations, delusions, or paranoia reported. - Plan: a. Administer Spravato as scheduled. b. Confirm patient's understanding of risks, benefits, and post-administra tion driving restrictions. c. Schedule next Spravato treatment for 11/21/2024. d. Schedule follow-up appointment with primary psychiatric care provider Reny for 12/04/2024. 2. Anxiety - Patient reports current anxiety level as 4/10. - Plan: a. Continue current treatment regimen. 3. Sleep - Patient reports 6 hours of sleep per night. 4. Appetite - Patient reports normal appetite. 5. Medication Management - Patient denies side effects from current medications. - No new medications or adjustments since last visit. - Plan: a. Continue current medication regimen. Plan Of Treatment Pending Test Test Name Order Date Vitamin B12 and Folate 01/01/2024 Iron, Serum 01/01/2024 Hemoglobin A1c 01/01/2024 CBC With Differential/Platelet Igo (Eskalith), Serum 01/01/2024 Vitamin D, 1,25 Dihydroxy 01/01/2024 TSH+Free T4 01/01/2024 Comp. Metabolic Panel (14) 01/01/2024 Next Appt Details Provider Name:Talib De La Rosa, 11/28/2024 08:00:00 AM, [address], [facility] [address], [address], Provider Name:Reny sorto, 12/04/2024 03:00:00 PM, [address], [facility] [address], [place], [address], Provider Name:Talib De La Rosa, 12/05/2024 08:00:00 AM, [address], [address], [place], [address], Provider Name:Talib De La Rosa, 12/12/2024 08:00:00 AM, [address], [facility] [address], [place], [address], Insurance Providers Payer Name Payer Address Payer Phone Subscriber Number Group Number Insured Name Patient Relationship to Insured Coverage Start Date Coverage End Date [facility] [address] [place] [address] [id number] MEENA [employer]OT Spouse - patient is the [...] Spravato (84 MG Dose) 09/12/2024 84 mg Spravato (84 MG Dose) 09/19/2024 84 mg Spravato (84 MG Dose) 09/26/2024 84 mg Spravato (84 MG Dose) 10/03/2024 84 mg Spravato (84 MG Dose) 10/10/2024 84 mg Spravato (84 MG Dose) 10/16/2024 84 mg Spravato (84 MG Dose) 10/24/2024 84 mg Spravato (84 MG Dose) 10/31/2024 84 mg Spravato (84 MG Dose) 11/07/2024 84 mg Spravato (84 MG Dose) 11/14/2024 84 mg Medical (General) History Medical History History ICD Code Problems: Generalized anxiety disorder Primary insomnia Severe recurrent major depression withou t psychotic features Surgical History Surgery Date(Month/Year) Reconstructive surgery 05/29/2006 Other 01/26/2021 Hospitalization History Reason Date(Month/Year) [facility] 2022 for SI
--- OUTSIDE RECORDS SUMMARY | 2024-11-27 08:57 | XMS_ITS | Patient Health Record ---
Author Organization [facility] Handseeing Information. Address [address] [address] [place] [address] Care Team Providers Care Panel Fitter Name Role Phone Bernarda Ziegler [phone] Allergies No Known Allergies Results Component Value Reference Range Flag Notes .COMPREHENSIVE METABOLIC ELAINE EL ([id number]) CMP Reviewed date:09/07/2024 10:41:26 PM Interpretation: Performing Lab:[facility]-[id number] [address] Bond, XfkosrTU[address] Catalina Zhou MD Notes/Report: FASTING:YES FASTING: YES GLUCOSE 91 65-99 mg/dL N Fasting reference interval UREA NITROGEN (BUN) 18 7-25 mg/dL N CREATININE 0.97 0.50-0.97 mg/dL N EGFR 78 > OR = 60 mL/min/1.73m2 N BUN/CREATININE RATIO SEE NOTE: 6-22 (calc) reference range. Not Reported: BUN and Creatinine are within SODIUM 135 135-146 mmol/L N POTASSIUM 4.2 3.5-5.3 mmol/L N CHLORIDE 102 98-110 mmol/L N CARBON DIOXIDE 23 20-32 mmol/L N CALCIUM 9.0 8.6-10.2 mg/dL N PROTEIN, TOTAL 6.7 6.1-8.1 g/dL N ALBUMIN 4.0 3.6-5.1 g/dL N GLOBULIN 2.7 1.9-3.7 g/dL (calc) N ALBUMIN/GLOBULIN RATIO 1.5 1.0-2.5 (calc) N BILIRUBIN, TOTAL 0.4 0.2-1.2 mg/dL N ALKALINE PHOSPHATASE 52 31-125 U/L N AST 13 10-30 U/L N ALT 12 6-29 U/L N .COMPREHENSIVE METABOLIC ELAINE EL ([id number]) CMP Reviewed date:10/31/2024 08:59:29 PM Interpretation: Performing Lab:[facility]-[id number] Wyatt Bond SbcixiSC[address] Catalina Zhou MD Notes/Report: GLUCOSE 95 65-99 mg/dL N Fasting reference interval UREA NITROGEN (BUN) 17 7-25 mg/dL N CREATININE 1.18 0.50-0.97 mg/dL H EGFR 62 > OR = 60 mL/min/1.73m2 N BUN/CREATININE RATIO 14 6-22 (calc) N SODIUM 136 135-146 mmol/L N POTASSIUM 4.0 3.5-5.3 mmol/L N CHLORIDE 106 98-110 mmol/L N CARBON DIOXIDE 21 20-32 mmol/L N CALCIUM 8.6 8.6-10.2 mg/dL N PROTEIN, TOTAL 7.0 6.1-8.1 g/dL N ALBUMIN 4.0 3.6-5.1 g/dL N GLOBULIN 3.0 1.9-3.7 g/dL (calc) N ALBUMIN/GLOBULIN RATIO 1.3 1.0-2.5 (calc) N BILIRUBIN, TOTAL 0.4 0.2-1.2 mg/dL N ALKALINE PHOSPHATASE 55 31-125 U/L N AST 15 10-30 U/L N ALT 13 6-29 U/L N MAGNESIUM (622) Reviewed date:09/07/2024 10:41:26 PM Interpretation: Performing Lab:Armando PEREZa101Hans Bond, OmijbmKH[address] Catalina Zhou MD Notes/Report: FASTING: YES FASTING:YES MAGNESIUM 1.9 1.5-2.5 mg/dL N IRON AND TOTAL IRON BINDING CAPACITY (7573) Reviewed date:09/07/2024 10:41:26 PM Interpretation: Performing Lab:Armando PEREZa101Hans Bond, FhpgsnNR[address] Catalina Zhou MD Notes/Report: FASTING:YES FASTING: YES IRON, TOTAL 79 40-190 mcg/dL N IRON BINDING CAPACITY 445 250-450 mc g/dL (calc) N % SATURATION 18 16-45 % (calc) N .LIPID PANEL, STANDARD (7600 ) Reviewed date:09/07/2024 10:41:26 PM Interpretation: Performing Lab:Armando PEREZexa101Hans Bond, GdjirrAS[address] Catalina Zhou MD Notes/Report: FASTING: YES FASTING:YES CHOLESTEROL, TOTAL 188 <200 mg/dL N HDL CHOLESTEROL 61 > OR = 50 mg/dL N TRIGLYCERIDES 109 <150 mg/dL N LDL-CHOLESTEROL 106 H Desirable range <100 mg/dL for primary prevention; (http://Spacedeck.Goodzer/faq/DHN568) better accuracy than the Friedewald equation in the LDL-C is now calculated using the Brennan estimation of LDL-C. Baltazar LEARY et al. TAMIKA. 2013;310(19): 8986-9712 with > or = 2 CHD risk factors. <70 mg/dL for patients with CHD or diabetic patients calculation, which is a validated novel method providing Reference range: <100 CHOL/HDLC RATIO 3.1 <5.0 (calc) N NON HDL CHOLESTEROL 127 <130 mg/dL (calc) N (LDL-C of <70 mg/dL) is considered a therapeutic factor, treating to a non-HDL-C goal of <100 mg/dL For patients with diabetes plus 1 major ASCVD risk option. .CBC (INCLUDES DIFF/PLT) (63 99) Reviewed date:09/07/2024 10:41:26 PM Interpretation: Performing Lab:CHRIS, [facility]-[id number] Wyatt Bond, OtpknfEC[address] Catalina Zohu MD Notes/Report: FASTING: YES FASTING:YES WHITE BLOOD CELL COUNT 5.7 3.8-10.8 Thousand/uL N RED BLOOD CELL COUNT 4.55 3.80-5.10 Million/uL N HEMOGLOBIN 13.1 11.7-15.5 g/dL N HEMATOCRIT 40.5 35.0-45.0 % N MCV 89.0 80.0-100.0 fL N MCH 28.8 27.0-33.0 pg N MCHC 32.3 32.0-36.0 g/dL N red cell parameters and the patient's clinical For adults, a slight decrease in the calculated MCHC not clinically significant; however, it should be condition. value (in the range of 30 to 32 g/dL) is most likely interpreted with caution in correlation with other RDW 12.8 11.0-15.0 % N PLATELET COUNT 271 140-400 Thousand/uL N MPV 9.8 7.5-12.5 fL N ABSOLUTE NEUTROPHILS 3922 3292-5448 cells/uL N ABSOLUTE LYMPHOCYTES 6242 784-5073 cells/uL N ABSOLUTE MONOCYTES 456 200-950 cells/uL N ABSOLUTE EOSINOPHILS 171 15-500 cells/uL N ABSOLUTE BASOPHILS 29 0-200 cells/uL N NEUTROPHILS 68.8 N LYMPHOCYTES 19.7 N MONOCYTES 8.0 N EOSINOPHILS 3.0 N BASOPHILS 0.5 N THYROID PEROXIDASE ANTIBODIE S (5081) Reviewed date:09/07/2024 10:41:26 PM Interpretation: Performing Lab:MARCUS, [facility]-[place] [address], [place] IhffLV[address] Joseph Hardy Notes/Report: FASTING:YES FASTING: YES THYROID PEROXIDASE ANTIBODIES 1 <9 IU/mL .HEMOGLOBIN A1c (496) Reviewed date:09/07/2024 10:41:26 PM Interpretation: Performing Lab:[facility] [facility]ilt[facility]YL[address] Catalina Zhou Notes/Report: FASTING:YES FASTING: YES HEMOGLOBIN A1c 5.4 <5.7 % of total Hgb N control in non- diabetic patients. Different (prediabetes) Currently, no consensus exists regarding use of According to [place] [employer] (ADA) metrics may apply to specific patient populations. <5.7% Consistent with the absence of diabetes 5.7-6.4% Consistent with increased risk for diabetes diabetes: > or =6.5% Consistent with diabetes guidelines, hemoglobin A1c <7.0% represents optimal This assay result is consistent with a decreased risk hemoglobin A1c for diagnosis of diabetes in children. For the purpose of screening for the presence of of diabetes. Standards of Medical Care in Diabetes(ADA). INSULIN (561) Reviewed date:09/07/2024 10:41:26 PM Interpretation: Performing Lab:CHRIS [facility]-Caqxqe72450 Wyatt Bond, MaufhbMS[address] Catalina Zhou MD Notes/Report: FASTING:YES FASTING: YES INSULIN 7.5 N Adult cardiovascular event risk category cut points (optimal, moderate, high) studies performed at [facility] Optimal < or = 18.4 Moderate NA are based on Insulin Reference Interval High >18.4 in 2021. Reference Range < or = 18.4 Risk: DHEA SULFATE (402) Reviewed date:09/07/2024 10:41:26 PM Interpretation: Performing Lab:Armando PEREZ LenexaKS[address] Catalina Zhou MD Notes/Report: FASTING:YES FASTING: YES DHEA SULFATE 127 19-237 mcg/dL N VITAMIN B12/FOLATE, SERUM PA YANELI (7065) Reviewed date:09/07/2024 10:41:26 PM Interpretation: Performing Lab:Armando PEREZ LenexaKS[address] Catalina Zhou MD Notes/Report: FASTING:YES FASTING: YES VITAMIN B12 550 463-5172 pg/mL N abnormalities due to occult B12 deficiency; less than 1% 5 and 10% of patients with values between 200 and 400 Please Note: Although the reference range for vitamin of patients with values above 400 pg/mL will have symptoms. pg/mL may experience neuropsychiatric and hematologic B12 is 200-1100 pg/mL, it has been reported that between FOLATE, SERUM 5.3 L Normal: >5.4 Reference Range Low: <3.4 Borderline: 3.4-5.4 VITAMIN B12/FOLATE, SERUM PA YANELI (7096) Reviewed date:10/31/2024 08:59:29 PM Interpretation: Performing Lab:Armando PEREZ LenexaKS[address] Catalina Zhou MD Notes/Report: VITAMIN B12 648 420-3343 pg/mL N FOLATE, SERUM 8.8 N Reference Range Normal: >5.4 Borderline: 3.4-5.4 Low: <3.4 T4, FREE (866) Reviewed date:10/31/2024 08:59:29 PM Interpretation: Performing Lab:Armando PEREZ Len[place]aKS[address] Catalina Zhou MD Notes/Report: T4, FREE 1.2 0.8-1.8 ng/dL N T4, FREE (866) Reviewed date:09/07/2024 10:41:26 PM Interpretation: Performing Lab:Armando PEREZ LenexaKS[address] Catalina Zhou MD Notes/Report: FASTING:YES FASTING: YES T4, FREE 1.0 0.8-1.8 ng/dL N CORTISOL, TOTAL (367) Reviewed date:09/21/2024 05:05:08 PM Interpretation: Performing Lab:Armando PEREZ LenexaKS[address] Catalina Zhou MD Notes/Report: CORTISOL, TOTAL 0.9 L Reference Range: For 8 a.m.(7-9 a.m.) Specimen: 4.0-22.0 Reference Range: For 4 p.m.(3-5 p.m.) Specimen: 3.0-17.0 * Please interpret above results accordingly * TSH (899) Reviewed date:10/31/2024 08:59:30 PM Interpretation: Performing Lab:Armando PEREZ Len[place]aKS[address] Catalina Zhou MD Notes/Report: TSH 1.77 N Ranges > or = 20 Years 0.40-4.50 Second trimester 0.55-2.73 First trimester 0.26-2.66 Third trimester 0.43-2.91 Reference Range TSH (899) Reviewed date:09/07/2024 10:41:26 PM Interpretation: Performing Lab:Armando PEREZ Len[place]aKS[address] Catalina Zhou MD Notes/Report: FASTING:YES FASTING: YES TSH 2.77 N First trimester 0.26-2.66 > or = 20 Years 0.40-4.50 Third trimester 0.43-2.91 Ranges Reference Range Second trimester 0.55-2.73 T3, FREE (93745) Reviewed date:09/07/2024 10:41:26 PM Interpretation: Performing Lab:Armando PEREZ LenexaKS[address] Catalina Zhou MD Notes/Report: FASTING:YES FASTING: YES T3, FREE 3.1 2.3-4.2 pg/mL N T3, FREE (52250) Reviewed date:10/31/2024 08:59:30 PM Interpretation: Performing Lab:Armando PEREZ-Vfvlqf45989 [address] Bond, IcbmisLB[address] Catalina Zhou MD Notes/Report: T3, FREE 2.9 2.3-4.2 pg/mL N .VITAMIN D,25-OH,TOTAL,IA (1 5277) Reviewed date:10/31/2024 08:59:30 PM Interpretation: Performing Lab:Armando PEREZ-Cemmvx88763Hans Bond, UifztkGF[address] Catalina Zhou MD Notes/Report: VITAMIN D,25-OH,TOTAL,IA 52 30-100 ng/mL N Insufficiency: 20 - 29 ng/mL D2-supplementation and patients for whom quantitation of D2 and D3 fractions is required, the PeakStreamAssToonTime(TM) (This link is being provided for informational/ http://Spacedeck.TV Volume Wizard App/faq/CAW590 Vitamin D Status 25-OH Vitamin D: 25-OH VIT D, (D2,D3), LC/MS/MS is recommended: order code 86729 (patients >2yrs). educational purposes only.) Note 1 Deficiency: <20 ng/mL See Note 1 For 25-OH Vitamin D testing on patients on For additional information, please refer to Optimal: > or = 30 ng/mL .VITAMIN D,25-OH,TOTAL,IA (1 7306) Reviewed date:09/07/2024 10:41:26 PM Interpretation: Performing Lab:Armando PEREZ-Oifdwq67747 Wyatt Bond, MogtxgSE[address] Catalina Zhou MD Notes/Report: FASTING:YES FASTING: YES VITAMIN D,25-OH,TOTAL,IA 25 30-100 ng/mL L Insufficiency: 20 - 29 ng/mL Deficiency: <20 ng/mL See Note 1 Vitamin D Status 25-OH Vitamin D: (This link is being provided for informational/ of D2 and D3 fractions is required, the Fitbit(TM) 25-OH VIT D, (D2,D3), LC/MS/MS is recommended: order For additional information, please refer to educational purposes only.) D2-supplementation and patients for whom quantitation For 25-OH Vitamin D testing on patients on Note 1 http://education.TV Volume Wizard App/faq/LLH617 code 81342 (patients >2yrs). Optimal: > or = 30 ng/mL TESTOSTERONE, FREE (DIALYSIS ) AND TOTAL,MS (45853) Reviewed date:09/14/2024 10:10:25 AM Interpretation: Performing Lab:Z3E, [facility] [address], [address], MkesfubwhyOD[address] Daniel Martel MD,PhD Notes/Report: FASTING:YES FASTING: YES TESTOSTERONE, TOTAL, MS 24 2-45 ng/dL characteristics have been determined by [employer]. It has For additional information, please refer to (Note) used for clinical purposes. not been cleared or approved by the FDA. This assay has https://Band Industries/faq/PCL650 (This link is being provided for informational/educational purposes only.) been validated pursuant to the CLIA regulations and is This test was developed and its analytical performance TESTOSTERONE, FREE 1.5 0.1-6.4 pg/mL characteristics have been determined by [employer]. It has [phone] used for clinical purposes. not been cleared or approved by the FDA. This assay has [facility] (Note) [facility] [address] This test was developed and its analytical performance MDF been validated pursuant to the CLIA regulations and is [address] [address],[address] Daniel Martel MD, PhD ACTH, PLASMA (211) Reviewed date:09/14/2024 10:10:25 AM Interpretation: Performing Lab:[facility]/Xavier Norris-Jr [id number] [facility] , DrxsaenanLH[address] Pilo Navas M.D.,PhD Notes/Report: FASTING:YES FASTING: YES ACTH, PLASMA 23 6-50 pg/mL Reference range applies only to specimens collected between 7am-10am. DEXAMETHASONE (14957) Reviewed date:09/26/2024 03:55:46 PM Interpretation: Performing Lab:RUP[facility]/Xavier [facility],[address] [address], Maiden AchcbgpjsxUR[address] Francia Chilel MD,PhD,CUBA Notes/Report: DEXAMETHASONE 378 Baseline: Less than 20 ng/dL It has not been cleared or approved by the FDA. This assay 1 mg dexamethasone overnight: 180-550 ng/dL (8:00-10:00 AM) This test was developed and its analytical performance characteristics have been determined by [facility]. Reference Ranges for Dexamethasone: has been validated pursuant to the CLIA regulations and is used for clinical purposes. Full Confirmation - Specimen Type Urine Reviewed [...] ng/ml Tricyclic Antidepressants Screen Negative 150 ng/mL ng/ml Buprenorphine Screen Negative 75 ng/mL ng/ml Cannabis Screen Negative 150 ng/mL ng/ml Reason For Referral No Information Medications Medication SIG (Take, Route, Frequency, Duration) Notes Start Date End Date Status 1.5-30 MG-MCG Tablet 1 tablet Orally Once a day Active Doxepin HCl 50 MG Capsule 1 capsule at b edtime Orally Once a day Active Fluoxetine Active busPIRone HCl 10 MG Tablet 1 tablet Oral ly 3 times a day Active Ondansetron HCl 4 MG Tablet 1 tablet Orally twice daily as needed nausea; Duration: 60 days 11/06/2024 Active clonazePAM 1 MG Tablet 1 tablet Orally Once a day Active Spravato (84 MG Dose) Active [place] Carbonate 150 MG Capsule 1 capsule Orally Twice a day Active Tremfya 100 MG/ML Solution Prefilled Syringe 1 mL Subcutaneous Activ e Social History Section Notes: tobacco: no alcohol: yes, occassionally caffeine: yes, just started drinking coffee tobacco: no alcohol: yes, occassionally caffeine: yes, just started drinking coffee Problems Problem Type SNOMED Code ICD Code Onset Dates Problem Status W/U Status Risk Notes Problem Autoimmune thyroiditis (02685235) Autoimmune thyroiditis (E06.3) Active confirmed Problem Vitamin D deficiency (26052969) Vitamin D deficiency, unspecified (E55.9) Active confirmed Problem Irregular menstruation (95671114) Irregular menstruation, unspecified (N92.6) Active confirmed Problem Obese class II (507524496586385 ) Body mass index [BMI] 35.0-35.9, adult (Z68.35) Active confirmed Problem Polycystic ovary syndrome (disorder) (329992931) PCOS (polycystic ovarian syndrome) (E28.2) Active confirmed Vital Signs Heart Rate 88 /min 11/06/2024 Height-cm 170.18 cm 11/06/2024 Oximetry 97 % 11/06/2024 Blood pressure diastolic 83 mm Hg 11/06/2024 Weight-kg 100.24 kg 11/06/2024 Height 67 in 11/06/2024 Blood pressure systolic 119 mm Hg 11/06/2024 Weight 221.0 lbs 11/06/2024 BMI 34.61 kg/m2 11/06/2024 Encounters Encounter Location Date Provider Diagnosis [facility] [address] [place] [address] 11/06/2024 Bernarda Ziegler buttermaker helper use of christina brunner Z79.[address] Ziegler [address] [place] [address] 08/28/2024 Bernarda Ziegler Body mass index [BMI ] 35.0-35.9, adult Z68.35 ; Obesity, class 2 E66.812 ; Irregular menstruation, unspecified N92.6 ; Vitamin D deficiency, unspecified E55.9 and Other fatigue R53.[address] Ziegler [address] [place] [address] 10/09/2024 Bernarda Ziegler Vitamin D deficiency , unspecified E55.9 ; Body mass index [BMI] 35.0-35.9, adult Z68.35 ; Vitamin B12 deficiency E53.8 ; PCOS (polycystic ovarian syndrome) E28.2 ; Dietary counseling and surveillance Z71.3 and Autoimmune thyroiditis E06.[address] Ziegler [id number] [place] [address] 11/06/2024 Bernarda Ziegler Autoimmune thyroidit is E06.3 ; PCOS (polycystic ovarian syndrome) E28.2 and Dietary counseling and surveillance Z71.3 Assessments Encounter Date Diagnosis (ICD Code) Assessment Notes Treatment Notes Treatment Clinical Notes Section Notes 08/28/2024 Body mass index [BMI] 35.0-35.9, adult (ICD-10 - Z68.35) 08/28/2024 Obesity, class 2 (ICD-10 - E66.812) 10/09/2024 Vitamin D deficiency, unspecified (ICD-10 - E55.9) 10/09/2024 Body mass index [BMI] 35.0-35.9, adult (ICD-10 - Z68.35) 11/06/2024 Autoimmune thyroiditis (ICD-10 - E06.3) 11/06/2024 buttermaker helper use of drug (ICD-10 - Z79.899) 11/06/2024 PCOS (polycystic ovarian syndrome) (ICD-10 - E28.2) 10/09/2024 Vitamin B12 deficiency (ICD-10 - E53.8) 08/28/2024 Irregular menstruation, unspecified (ICD-10 - N92.6) 10/09/2024 PCOS (polycystic ovarian syndrome) (ICD-10 - E28.2) 08/28/2024 Vitamin D deficiency, unspecified (ICD-10 - E55.9) 11/06/2024 Dietary counseling and surveillance (ICD-10 - Z71.3) Spent 15 minutes preventative counseling patient on dietary recommendations and changes in setting of hyperglycemia- need to restrict refined sugars and processed foods and incorporate up to 150 minutes of moderate level activity weekly. 10/09/2024 Dietary counseling and surveillance (ICD-10 - Z71.3) Spent 15 minutes preventative counseling patient on dietary recommendations and changes in setting of hyperglycemia- need to restrict refined sugars and processed foods and incorporate up to 150 minutes of moderate level activity weekly. 08/28/2024 Other fatigue (ICD-10 - R53.83) 10/09/2024 Autoimmune thyroiditis (ICD-10 - E06.3) 08/28/2024 Other Assessment and Plan: 1. Suspected Hormonal Imbalance- Perform dexamethasone suppression test during the placebo week of control- Order full thyroid panel including TPO, T3, T4 hormones- Order testosterone test- If dexamethasone suppression test is abnormal, proceed with urinary and salivary tests for excess cortisol secretion- Order vitamin panel- Dexamethasone tablet to be sent to [facility] in [place]- Patient instructed to take dexamethasone on the last day of placebo week, not during estrogen week 2. Psoriatic Arthritis- Continue current treatment regimen for psoriatic arthritis (injection every 8 weeks)- Maintain follow-up with instrumentation engineer for psoriasis management 3. Sleep Disturbance- Reassess sleep patterns after hormone evaluation and potential treatment 4. Muscle Weakness- Evaluate muscle strength in context of hormone and thyroid test results- Reassess after addressing potential hormonal imbalances Spent 45 minutes preparing to see the patient (ex review of tests/chart), obtaining and / or reviewing separately obtained history, performing a medically appropriate examination and/or evaluation, counseling and educating the patient/family/personal carer, ordering medications, tests, or procedures, referring and communicating with other health care process manager, documenting clinical information in the electronic or other health record, independently interpreting results and communicating results to the patient/family/personal carer and care coordinating patient plan. Patient alert and oriented x 4 and aware of discussion noted above and in agreeance to plan in management of weight gain/abnormal, insomnia, irregular menses, fatigue and concern for hypercortisolism. 10/09/2024 Other Assessment and Plan: 1. Polycystic Ovary Syndrome (PCOS)- Consider tirzepatide injections for PCOS management and weight loss- Discuss potential insurance coverage for tirzepatide (Mounjaro)- Start with 2.5 mg weekly injections if approved- Inform patient about cost: $290/month for 2.5 mg, increasing to $400/month for higher doses- Educate on proper injection technique and potential side effects- Advise to start on a non-busy day, preferably with dinner- Recommend diet rich in fruits, vegetables, lean meats; avoid refined sugar and gluten- Encourage intake of 80-90 grams of protein daily- Follow up in 4 weeks if starting injections, or in a few months if not- Repeat labs in 6 weeks 2. Vitamin B12 and Folate Deficiency- Start methylated B12 and folic acid supplements- Provide 4-month supply of B12 supplement ($40)- Educate on importance of supplementation for managing fatigue and potential neuropathies- Reassess B12 levels with repeat labs in 6 weeks 3. Vitamin D Deficiency- Start weekly Vitamin D supplementation- Provide 4-month supply ($15-$20)- Reassess Vitamin D levels with repeat labs in 6 weeks 4. Subclinical Hypothyroidism- Start natural thyroid support supplement- Include 300 micrograms of iodine and L-carnitine- Reassess thyroid function with repeat labs in 6 weeks- Consider thyroid replacement therapy if no improvement 5. Sleep Disturbance and Anxiety- Recommend magnesium glycinate supplementation (200-450 mg) for restless leg symptoms- Monitor sleep quality and anxiety symptoms- Reassess at follow-up appointment Spent 25 minutes preparing to see the patient (ex review of tests/chart), obtaining and / or reviewing separately obtained history, performing a medically appropriate examination and/or evaluation, counseling and educating the patient/family/personal carer, ordering medications, tests, or procedures, referring and communicating with other health care process manager, documenting clinical information in the electronic or other health record, independently interpreting results and communicating results to the patient/family/personal carer and care coordinating patient plan. Patient alert and oriented x 4 and aware of discussion noted above and in agreeance to plan in management of PCOS/weight management, autoimmune thyroiditis, vit D/B12/folic acid deficiencies. 11/06/2024 Deepika Aguero, a female patient with a history of PCOS and metabolic tendencies, presents for follow-up of weight management and evaluation of recent lab results, including blood sugar levels and cortisol suppression test. ObesityAssessment: Patient is currently on tirzepatide 2.5 mg for weight management. Initial response to treatment has been suboptimal, with limited weight loss observed. Patient reports experiencing side effects, including severe bloating, diarrhea, and nausea during the second week of treatment. Blood sugar levels are consistently in the mid to high 90s, never exceeding 100 mg/dL. Cortisol suppression test was normal. Sleep study is scheduled for November 27 to evaluate for possible sleep apnea.Plan:- Continue tirzepatide, consider dose adjustment: - Option 1: Increase to 5 mg dose of tirzepatide-send in zofran for nausea - Option 2: Microdose current prescription (take half dose, then complete other half)- Prescribe Zofran for nausea management- Recommend increased water intake (80-90 ounces daily)- Provide food lists for gluten-free diet- Encourage high fiber intake, including fruits, vegetables, and prunes- Consider adding Metamucil or Fibricor for stool regulation- Await sleep study results to potentially pursue Zepbound authorization- Follow up in one month Nutritional ManagementAssessmen t: Patient is attempting to follow a gluten-free diet but reports difficulty with strict adherence. Recent labs show normal thyroid function (Free T4 1.2-1.4, TSH under ;2, T3 at 3) and adequate B12 levels. Folic acid level is 8.8, which is within normal range but could be optimized.Plan:- Provide detailed food lists for gluten-free diet- Consider supplementation: - Option to start 400 mcg folic acid or B12 with folic acid supplement for fatigue management - Trial of iodine supplement: start with one capsule daily, option to break capsule and mix powder in shake if sensitive to capsules- Encourage continued efforts to avoid gluten, especially packaged and processed forms Medication ManagementAssessmen t: Patient reports adverse effects from an unspecified medication, describing it as causing really bad heartburn and having a really gross taste. Patient has independently discontinued this medication for the past week.Plan:- Discontinue the unspecified medication causing heartburn and taste issues- Hold thyroid medication prescription pending further evaluation Spent 25 minutes preparing to see the patient (ex review of tests/chart), obtaining and / or reviewing separately obtained history, performing a medically appropriate examination and/or evaluation, counseling and educating the patient/family/personal carer, ordering medications, tests, or procedures, referring and communicating with other health care process manager, documenting clinical information in the electronic or other health record, independently interpreting results and communicating results to the patient/family/personal carer and care coordinating patient plan. Patient alert and oriented x 4 and aware of discussion noted above and in agreeance to plan in management of autoimmune thyroiditis, PCOS and weight management and potential for BENSON. Plan Of Treatment Next Appt Details Provider Name:Bernarda Ziegler, 12:30:00 PM, [address] [place], [address], Insurance Providers Payer Name Payer Address Payer Phone Subscriber Number Group Number Insured Name Patient Relationship to Insured Coverage Start Date Coverage End Date [place] [address] [place] [address] [id number] More [place] Self - patient is the insured Medical (General) History Medical History History ICD Code depression anxiety PCOS Surgical History Surgery Date(Month/Year) ACL reconstruction 2005 foot surgery 2021
--- OUTSIDE RECORDS SUMMARY | 2024-11-27 08:57 | XMS_ITS | Clinical Summary ---
Author Organization [facility] Address [address] [place] [address] Care Team Providers Care Bell Cleaner Name Role Phone Bushra Bailey MD Primary Care Provider [phone] Allergies No known active allergies Medications norethindrone-ethi [...] on file Legal Sex Female 9:59 AM INSIDE STEWARD/STEWARDESS Gender Identity Not on file Sexual Orientation Not on file Last Filed Vital Signs Vital Sign Reading Time Taken Comments Blood Pressure 118/65 02/21/2023 5:17 PM INSIDE STEWARD/STEWARDESS Pulse 75 02/21/2023 5:17 PM INSIDE STEWARD/STEWARDESS Temperature 36.9 C (98.5 F) 02/21/2023 5:17 PM INSIDE STEWARD/STEWARDESS Respiratory Rate 16 02/21/2023 5:17 PM INSIDE STEWARD/STEWARDESS Oxygen Saturation 99% 02/21/2023 5:17 PM INSIDE STEWARD/STEWARDESS Inhaled Oxygen Concentration - - Weight 71.5 kg (157 lb 10.1 oz) 023 10:26 AM INSIDE STEWARD/STEWARDESS Height 160 cm (5' 3) 02/21/2023 10:26 AM INSIDE STEWARD/STEWARDESS Body Mass Index 27.92 02/21/2023 10:26 AM INSIDE STEWARD/STEWARDESS Plan of Treatment Health Maintenance Due Date Last Done Comments Cervical Cancer Screening 1989 Depression Screening 1989 Hepatitis C Screening 1989 DTaP/Tdap/Td Vaccine (1 - Tdap) 01/19/2000 Varicella Vaccines (1 of 2 - 13+ 2-dose series) 2002 Hepatitis B Screening 2007 Regular Well Visit/Exam 18-64 2007 HPV Vaccines (1 - 3-dose SCD M series) 01/19/2016 Covid-19 Vaccine (3 - 2023-2 5 season) 2023 06/29/2020, 06/01/2020 Influenza Vaccine (#1) 2024 Pneumococcal vaccine <65 Aged Out No longer eligible based on patient's age to complete this topic Insurance [employer] Care Teams Bell Cleaner Relationship Specialty Start Date End Date Bushra Bailey MD PCP - General Family Medicine 02/21/23
--- OUTSIDE RECORDS SUMMARY | 2024-11-27 08:58 | XMS_ITS ---
Author Organization [facility] Address [address] [place] [address] Care Team Providers Care Rabbit Fancier Name Role Phone Bernarda Ziegler [phone] Results Component Value Reference Range Flag Notes [...] ng/mL ng/ml REASON FOR VISIT UDS clonazepam, [place] Medications Medication SIG (Take, Route, Frequency, Duration) Notes Start Date End Date Status 1.5-30 MG-MCG Tablet 1 tablet Orally Once a day Active Doxepin HCl 50 MG Capsule 1 capsule at b edtime Orally Once a day Active Fluoxetine Active [place] Carbonate 150 MG Capsule 1 capsule Orally Twice a day Active Tremfya 100 MG/ML Solution Prefilled Syringe 1 mL Subcutaneous Active busPIRone HCl 10 MG Tablet 1 tablet Orally 3 times a day Active clonazePAM 1 MG Tablet 1 tablet Orally Once a day Active Spravato (84 MG Dose) Active Encounters Encounter Location Date Provider Diagnosis [facility] [place] [address] [facility] [facility] [place] [id number] 11/06/2024 Bernarda Ziegler oil heaterman use of christina g Z79.899 Assessments Encounter Date Diagnosis (ICD Code) Assessment Notes Treatment Notes Treatment Clinical Notes Section Notes 11/06/2024 penitentiary use of drug (ICD-10 - Z79.899) Plan Of Treatment Next Appt Details Provider Name:Bernarda Ziegler, 12:30:00 PM, [address] [place] [address], [phone], History and Physical Notes * HPI (History [...] medical nessessity statement. Progress Notes * Cassandra RUSHeDOB:1990 (34 yo F)Acc No.[id number]:11/06/2024 Patient: More Foy Provider: Abiodun Ziegler MD :1990 A ge:34 Y S ex:Female Date:11/06/2024 Phone: Address:[address] [place], [place] [id number] Subjective: * Chief Complaints: * U DS clonazepam, [place] * HPI: H PI: Presumptive UDS ordered [...] MG/ML Solution Prefilled Syringe 1 mL Subcutaneous [place] Carbonate 150 MG Capsule 1 capsule Orally [...] Solution Prefilled Syringe 1 mL Subcutaneous Taking [place] Carbonate 150 MG Capsule 1 capsule Orally [...] Screen Negative 75 ng/mL - ng/ml * Benrarda Ziegler 11/19/2024 08:26 :17 PM CDT >reviewed * Procedure Codes: 8 0307 DRUG TEST PRSMV CHEM [id number] Drug test def 1-7 classes Billing Information: * Procedure Codes: 40312 DRUG TEST PRSMV CHEM ANLYZR. G0480 Drug test def 1-7 classes. * Electronic signature of Pavan Ziegler MD on 11/27/2024 at 08:57 AM CDT Sign off status: Pending * Provider: Abiodun Ziegler MD Date: 0 11/06/2024 Generated for Juliet peace/Janeth/Edmonditting on: 0 11/27/2024 08:57 AM CDT
--- NOTE | 2024-12-12 17:31 | WPDSLEEPSTUD ---
Sleep Study Date of Study: 11/27/24 Ordering Provider: Shruti Aldana MD Interpreting Physician: Shruti Aldana MD Sleep Study Type: Polysomnogram Height: 1.6 m Weight: 99.79 kg Body Mass Index: 38.9 Neck Circumference (inches): 15 [place]: 13 Reason for Sleep Study Hypersomnolence; * 09/19/2024 Home sleep test using WatchPat was negative for sleep disordered breathing, AHI 0.6, desaturation to 86% She returns for a definitive in lab study. Sleep History Her sleep history is taken from her 09/19/2024 questionnaire. More Rush is a 34-year-old female with excessive daytime sleepiness and a negative home sleep test on 09/19/2024. The patient admits to excessive daytime sleepiness, trouble falling asleep, trouble staying asleep, and snoring loudly. She denies having interruptions in breathing while asleep. She denies choking or gasping at night. She denies having trouble breathing on her back. She denies morning headaches. She does have a dry or sore mouth/throat in the morning. She denies nocturnal heartburn. She urinates 3 times throughout the night. She has difficulty returning to sleep if she wakes during the night. She does use hypnotics or sedatives. She does feel anxious about sleep. She feels tired and sleepy during the day. She feels tired on waking. She has the urge to fall asleep during the day. She denies feeling drowsy while driving. She denies feeling paralyzed on waking or upon falling asleep, denies muscle weakness with strong emotion, and denies having vivid dreams on walling asleep or upon a wakening. She does clench or grind her teeth. She denies kicking or jerking her legs excessively. She denies having a restless feeling in her legs in the evenings before bedtime. Normal bedtime is 10 p.m. every night, and she falls asleep within 75 minutes. She gets 5 hours of sleep on workdays and 8 hours on her days off. Her sleep is not at all restorative on her days off. She denies taking any planned naps. She denies dream enactment behavior. She denies sleepwalking. Habits: Tobacco: none Caffeine: 1 to 2 cups of caffeinated beverages per day. Alcohol: none PMFSH Past Medical History Medical History Foot fracture, left Lymphocytic colitis Anxiety Sinusitis Psoriasiform dermatitis Gestational HTN Overweight (BMI 25.0-29.9) Musculoskeletal pain Surgical History Surgical History History of knee surgery left ACL repair Family History Family History Grandparent Congestive heart failure Hypertension Mother Hypertension Grandparent Diabetes mellitus Social History Social History Smoking status: Never smoker Second hand tobacco smoke exposure: No Alcohol intake: current Alcohol use details: social Substance use: never Substance use type: does not use Lack of Transportation: No Lack of Food: Never True Current Housing: I Have Housing Concerned About Future Housing: No Difficulty Paying Gas/Electric Bills: No Difficulty Paying for Meds: No Currently Unemployed: No Education: Bachelor's Degree Difficulty w/ Childcare or Family Care: No Living arrangements: with family Occupation/Education: occupation Gender identity (if verbalized by the patient): Female Sexual Orientation (if Verbalized by the Patient): Straight or Heterosexual Spiritual care concerns: No Agree to blood products: Yes Medications Home Medications ?Medication ?Instructions ?Recorded ?Confirmed ?Type norethindrone acetate 1.5 1 tablet PO DAILY 12/21/22 12/09/24 History mg-ethinyl estradiol 30 mcg tablet (Junel) guselkumab 100 mg/mL subcutaneous 100 mg subcut ONCE 02/02/23 12/09/24 History auto-injector (Tremfya) clonazepam 1 mg tablet 1 mg PO BID 03/07/23 12/09/24 History lithium carbonate 150 mg capsule 150 mg PO DIRECTED 06/06/23 12/09/24 History doxepin 25 mg capsule 25 mg PO DAILY 07/16/24 12/09/24 History esketamine 84 mg (28 mg x 3) nasal See Rx Instructions intranasal 07/16/24 12/09/24 History spray (Spravato) .COMPLEX fluoxetine 40 mg capsule 40 mg PO DAILY 07/16/24 12/09/24 History buspirone 10 mg tablet 10 mg PO TID #1 tablet 10/24/24 12/09/24 Rx cholecalciferol (vitamin D3) 1,250 1,250 mcg PO WEEKLY #1 cap 10/24/24 12/09/24 Rx mcg (50,000 unit) capsule Sleep Procedure A full night polysomnogram using the [employer] multi-channel system recorded the standard physiologic parameters including EEG, EOG, submentalis EMG, anterior tibialis EMG, EKG, body position, nasal and oral airflow using nasal pressure sensor and thermistor. Respiratory parameters of chest and abdominal movements were recorded with Respiratory Inductance Plethysmography belts. Oxygen saturation was recorded by pulse oximetry. Video monitoring was also performed. Sleep stages, periodic limb movements, and EEG arousals were scored in 30 second epochs according to the criteria of the AASM Scoring Manual. The Apnea-Hypopnea Index was calculated using [facility] guidelines for definition of hypopnea while scoring respiratory events. The patient self administered Lunesta 2 mg at the start of the study. Sleep Architecture The total recording time was 522.2 minutes. The total sleep time was 452.0 minutes. Sleep latency was 43.3 minutes. REM latency was 269.5 minutes. Sleep efficiency was 86.6%. The patient had 35 awakenings for an awakening index of 4.6. Wake after sleep onset time was 26.5 minutes. The patient spent 37.5 minutes, 8.3% of total sleep time in Stage N1. The patient spent 328.5 minutes, 72.7% in Stage N2. The patient spent 1.5 minutes, 0.3% in Stage N3. The patient spent 84.5 minutes, 18.7% in Stage REM sleep. Respiratory Analysis The patient had 4 hypopneas, no obstructive apneas, 1 mixed apnea, and no central apneas for an overall Apnea Hypopnea Index of 0.7. The REM Apnea Hypopnea Index was 3.6. The NREM Apnea Hypopnea Index was 0.2. The patient had a Central Apnea Hypopnea Index of 0. There were no Respiratory Effort Related Arousals. The Respiratory Disturbance Index is 0.9 events per hour. There was no evidence of [place] Respirations. Arousals There were 144 total arousals for an arousal index of 19.1. There were 63 spontaneous arousals for an index of 8.4. There were 2 arousals due to respiratory events for an index of 0.3. There were 23 arousals due to periodic limb movements for an index of 3.1. There were 48 arousals due to isolated limb movements for an index of 6.4. Periodic Limb Movements The patient had 91 isolated limb movements with an index of 12.1. The patient had 55 periodic limb movements with an index of 7.3. Patient had a total of 146 limb movements with a total limb movement index of 19.4. Oximetry Data The patient had an average oxygen saturation of 96.0% in sleep with a minimum oxygen saturation of 90% and a maximum oxygen saturation of 99%. The patient had 6 oxygen desaturations that were 4% or greater resulting in an Oxygen Desaturation Index of 0.8. The patient spent no time with an oxygen saturation below 88%. Snoring Profile Snoring was mld to moderate. Cardiac Profile EKG showed normal sinus rhythm with an average pulse rate of 71.3 bpm, minimum pulse of rate of 56 bpm and a maximum pulse rate of 102 bpm.No arrhythmias noted. EEG Profile Unremarkable, no evidence of seizures with frequent alpha intrusion in non-REM sleep. Assessment and Plan Assessment and Plan (1) Hypersomnolence: Code(s): G47.10 - Hypersomnia, unspecified Status: Acute Assessment and Plan: The patient had an overall AHI of 0.7 with desaturation down to 90%. This is not consistent with sleep disordered breathing. She had frequent alpha intrusion noted on EEG during non-REM sleep. Alpha intrusion can be seen in various conditions conditions including schizophrenia, depression, schizoaffective disorder, narcotic addiction, temporal epilepsy, fibromyalgia, chronic fatigue syndrome, and chronic pain syndrome. Alpha intrusion can be associated with non-restorative sleep and daytime fatigue. The patient should maintain a regular sleep schedule, limit caffeine and alcohol especially before bed and have regular physical activity but not to close before bedtime. Practices such as yoga, deep breathing or meditation can promote relaxation and potentially may reduce alpha intrusion. She has increased limb movements during the night, however her limb movements did not lead to arousals. Her limb movement index was 19.4, limb movement arousal index was 9.5, in the normal range. She does not meet criteria to evaluate ferritin level or add medications. She may consider non-pharmacologic management of leg movements including daily exercise, stretching calf muscles before bed, avoiding excessive amounts of caffeine and alcohol, vitamin B supplementation, magnesium lotion massaged into legs before bed, and use of a weighted blanket. Data The data obtained during this sleep study is adequate for interpretation. Certification This sleep study has been reviewed by a board certified sleep medicine physician.
[2024-12-12 18:12] VITALS: BMI 38.9
== END 2024-11-28 06:37 | disposition home or self-care (01) ==
LOC: ANHCSM 08:51
PROVIDERS: PCP Family Medicine; Visit Provider Internal Medicine Critical Care Medicine
DX: G47.10 Hypersomnia, unspecified (principal)
CPT/HCPCS: 95810

== ENCOUNTER 2025-03-24 14:25 | Outpatient (CLI) | payer BC, SELFPAY ==
--- OUTSIDE RECORDS SUMMARY | 2024-11-06 08:40 | XMS_ITS ---
Author Organization [facility] Address [address] [place], [place] [id number] Care Team Providers Care Cream Separator Operator Name Role Phone Bernarda Ziegler Unavailable [phone] Results Component Value Reference Range Flag Notes Full Confirmation - Specimen Type Urine Reviewed date:11/26/2024 04:37:17 PM Interpretation: Performing Lab: Notes/Report: 6-BENNETT Negative 20 ng/mL ng/mL 7-Aminoclonazepam 117 50 ng/mL ng/mL H a-Hydroxyalprazolam Negative 50 ng/mL ng/mL Alprazolam Negative 50 ng/mL ng/mL Amphetamine Negative 50 ng/mL ng/mL Benzoylecgonine Negative 50 ng/mL ng/mL Buprenorphine Negative 25 ng/mL ng/mL Carisoprodol Negative 50 ng/mL ng/mL Clonazepam Negative 50 ng/mL ng/mL Codeine Negative 50 ng/mL ng/mL Cyclobenzaprine Negative 50 ng/mL ng/mL Diazepam Negative 50 ng/mL ng/mL EDDP Negative 50 ng/mL ng/mL Fentanyl Negative 3 ng/mL ng/mL Gabapentin Negative 500 ng/mL ng/mL Hydrocodone Negative 50 ng/mL ng/mL Hydromorphone Negative 50 ng/mL ng/mL Lorazepam Negative 50 ng/mL ng/mL MDMA Negative 50 ng/mL ng/mL Meprobamate Negative 50 ng/mL ng/mL Methadone Negative 50 ng/mL ng/mL Methamphetamine Negative 200 ng/mL ng/mL Morphine Negative 50 ng/mL ng/mL Naloxone Negative 50 ng/mL ng/mL Naltrexone Negative 50 ng/mL ng/mL Norbuprenorphine Negative 25 ng/mL ng/mL Nordiazepam Negative 50 ng/mL ng/mL Norfentanyl Negative 10 ng/mL ng/mL Norpropoxyphene Negative 50 ng/mL ng/mL Oxazepam Negative 50 ng/mL ng/mL Oxycodone Negative 50 ng/mL ng/mL Oxymorphone Negative 50 ng/mL ng/mL Pregabalin Negative 200 ng/mL ng/mL Propoxyphene Negative 50 ng/mL ng/mL Tapentadol Negative 50 ng/mL ng/mL Temazepam Negative 50 ng/mL ng/mL Tramadol Negative 50 ng/mL ng/mL THC Negative 50 ng/mL ng/mL Amitriptyline Negative 50 ng/mL ng/mL Carboxyzolpidem Negative 100 ng/mL ng/mL Desmethyldoxepin 160 50 ng/mL ng/mL H Doxepin >300 50 ng/mL ng/mL H Imipramine Negative 50 ng/mL ng/mL Methylphenidate Negative 50 ng/mL ng/mL Nortriptyline Negative 50 ng/mL ng/mL o-Desmethyltramadol Negative 50 ng/mL ng/mL Ritalinic Acid Negative 50 ng/mL ng/mL Desalkylflurazepam Negative 50 ng/mL ng/mL Flunitrazepam Negative 50 ng/mL ng/mL Flurazepam Negative 50 ng/mL ng/mL Ketamine Negative 50 ng/mL ng/mL Meperidine Negative 50 ng/mL ng/mL Mitragynine Negative 50 ng/mL ng/mL Norhydrocodone Negative 50 ng/mL ng/mL Norketamine Negative 50 ng/mL ng/mL Normeperidine Negative 50 ng/mL ng/mL Noroxycodone Negative 50 ng/mL ng/mL PCP Negative 25 ng/mL ng/mL Phentermine Negative 50 ng/mL ng/mL Zaleplon Negative 20 ng/mL ng/mL Trazodone Negative 50 ng/mL ng/mL Presumptive Drug Test - Spec imen Type Urine Reviewed date:11/19/2024 08:26:27 PM Interpretation: Performing Lab: Notes/Report: Opiates Screen Negative 150 ng/mL ng/ml Benzodiazepines Screen Positive 150 ng/mL ng/ml H Amphetamines Screen Negative 600 ng/mL ng/ml Cocaine Screen Negative 150 ng/mL ng/ml Methadone Screen Negative 150 ng/mL ng/ml 6-BENNETT Screen Negative 60 ng/mL ng/ml Methamphetamine Screen Negative 600 ng/mL ng/ml Fentanyl Screen Negative 9 ng/mL ng/ml Tricyclic Antidepressants Screen Negative 150 ng/mL ng/m l Buprenorphine Screen Negative 75 ng/mL ng/ml Cannabis Screen Negative 150 ng/mL ng/ml REASON FOR VISIT UDS clonazepam, [place] Medications Medication SIG (Take, Route, Frequency, Duration) Notes Start Date End Date Status 1.5-30 MG-MCG Tablet 1 tablet Orally Once a day Active Doxepin HCl 50 MG Capsule 1 capsule at b edtime Orally Once a day Active Fluoxetine Active Pilgrim Carbonate 150 MG Capsule 1 capsule Orally Twice a day Active Tremfya 100 MG/ML Solution Prefilled Syringe 1 mL Subcutaneous Active busPIRone HCl 10 MG Tablet 1 tablet Orally 3 times a day Active clonazePAM 1 MG Tablet 1 tablet Orally Once a day Active Spravato (84 MG Dose) Active Encounters Encounter Location Date Provider Diagnosis [facility] [place] [address] [facility] [place] [id number] 11/06/2024 Bernarda Ziegler skilled nursing use of christina g Z79.899 Assessments Encounter Date Diagnosis (ICD Code) Assessment Notes Treatment Notes Treatment Clinical Notes Section Notes 11/06/2024 skilled nursing use of drug (ICD-10 - Z79.899) Plan Of Treatment No Information History and Physical Notes * HPI (History of Present Illness) Category Sub-Category Detail Notes Category Not es HPI Presumptive UDS ordered to ensure the safety and efficacy of the patient's treatment plan, if the presumptive is inconsistent the test will reflex to a confirmation. This confirmation will provide precise identification and quantification of specific drugs and their metabolites, enabling accurate assessment of the patient's compliance. Detecting possible diversion is crucial for preventing misuse, adjusting the treatment regimen as needed, and ensuring optimal patient outcomes. The confirmatory test will guide appropriate clinical interventions and support the responsible management of controlled medications.See attached results with included risk stratification and medical nessessity statement. Progress Notes * Cassandra VELAZQUEZeDOB:1990 (35 yo F)Acc No.[id number]:11/06/2024 Patient: More Foy Provider: Abiodun Ziegler MD :1990 A ge:34 Y S ex:Female Date:11/06/2024 Phone: Address:[address] [place], [place] [id number] Subjective: * Chief Complaints: * U DS clonazepam, [place] * HPI: H PI: Presumptive UDS ordered to ensure the safety and efficacy of the patient's treatment plan, if the presumptive is inconsistent the test will reflex to a confirmation. This confirmation will provide precise identification and quantification of specific drugs and their metabolites, enabling accurate assessment of the patient's compliance. Detecting possible diversion is crucial for preventing misuse, adjusting the treatment regimen as needed, and ensuring optimal patient outcomes. The confirmatory test will guide appropriate clinical interventions and support the responsible management of controlled medications.See attached results with included risk stratification and medical nessessity statement. * Medications: T akingSpravato (84 MG Dose) Tremfya 100 MG/ML Solution Prefilled Syringe 1 mL Subcutaneous Pilgrim Carbonate 150 MG Capsule 1 capsule Orally Twice a day 1.5-30 MG-MCG Tablet 1 tablet Orally Once a day Fluoxetine Doxepin HCl 50 MG Capsule 1 capsule at bedtime Orally Once a day clonazePAM 1 MG Tablet 1 tablet Orally Once a day busPIRone HCl 10 MG Tablet 1 tablet Orally 3 times a day Taking Spravato (84 MG Dose) Taking Tremfya 100 MG/ML Solution Prefilled Syringe 1 mL Subcutaneous Taking Pilgrim Carbonate 150 MG Capsule 1 capsule Orally Twice a day Taking 1.5-30 MG-MCG Tablet 1 tablet Orally Once a day Taking Fluoxetine Taking Doxepin HCl 50 MG Capsule 1 capsule at bedtime Orally Once a day Taking clonazePAM 1 MG Tablet 1 tablet Orally Once a day Taking busPIRone HCl 10 MG Tablet 1 tablet Orally 3 times a day Assessment: * Assessment: 1. L bertin term use of drug - Z79.899 (Primary) Plan: * Treatment: Value Reference Range 6 -BENNETT Negative 20 ng/mL - ng/mL * 7 -Aminoclonazepam 117 H 50 ng/mL - ng/mL * a -Hydroxyalprazolam Negative 50 ng/mL - ng/mL * A lprazolam Negative 50 ng/mL - ng/mL * A mitriptyline Negative 50 ng/mL - ng/mL * A mphetamine Negative 50 ng/mL - ng/mL * B enzoylecgonine Negative 50 ng/mL - ng/mL * B uprenorphine Negative 25 ng/mL - ng/mL * C arboxyzolpidem Negative 100 ng/mL - ng/mL * C arisoprodol Negative 50 ng/mL - ng/mL * C lonazepam Negative 50 ng/mL - ng/mL * C odeine Negative 50 ng/mL - ng/mL * C yclobenzaprine Negative 50 ng/mL - ng/mL * D esalkylflurazepam Negative 50 ng/mL - ng/mL * D esmethyldoxepin 160 H 50 ng/mL - ng/mL * D iazepam Negative 50 ng/mL - ng/mL * D oxepin >300 H 50 ng/mL - ng/mL * E DDP Negative 50 ng/mL - ng/mL * F entanyl Negative 3 ng/mL - ng/mL * F lunitrazepam Negative 50 ng/mL - ng/mL * F lurazepam Negative 50 ng/mL - ng/mL * G abapentin Negative 500 ng/mL - ng/mL * H ydrocodone Negative 50 ng/mL - ng/mL * H ydromorphone Negative 50 ng/mL - ng/mL * I mipramine Negative 50 ng/mL - ng/mL * K etamine Negative 50 ng/mL - ng/mL * L orazepam Negative 50 ng/mL - ng/mL * M DMA Negative 50 ng/mL - ng/mL * M eperidine Negative 50 ng/mL - ng/mL * M eprobamate Negative 50 ng/mL - ng/mL * M ethadone Negative 50 ng/mL - ng/mL * M ethamphetamine Negative 200 ng/mL - ng/mL * M ethylphenidate Negative 50 ng/mL - ng/mL * M itragynine Negative 50 ng/mL - ng/mL * M orphine Negative 50 ng/mL - ng/mL * N aloxone Negative 50 ng/mL - ng/mL * N altrexone Negative 50 ng/mL - ng/mL * N orbuprenorphine Negative 25 ng/mL - ng/mL * N ordiazepam Negative 50 ng/mL - ng/mL * N orfentanyl Negative 10 ng/mL - ng/mL * N orhydrocodone Negative 50 ng/mL - ng/mL * N orketamine Negative 50 ng/mL - ng/mL * N ormeperidine Negative 50 ng/mL - ng/mL * N oroxycodone Negative 50 ng/mL - ng/mL * N orpropoxyphene Negative 50 ng/mL - ng/mL * N ortriptyline Negative 50 ng/mL - ng/mL * o -Desmethyltramadol Negative 50 ng/mL - ng/mL * O xazepam Negative 50 ng/mL - ng/mL * O xycodone Negative 50 ng/mL - ng/mL * O xymorphone Negative 50 ng/mL - ng/mL * P CP Negative 25 ng/mL - ng/mL * P hentermine Negative 50 ng/mL - ng/mL * P regabalin Negative 200 ng/mL - ng/mL * P ropoxyphene Negative 50 ng/mL - ng/mL * R italinic Acid Negative 50 ng/mL - ng/mL * T apentadol Negative 50 ng/mL - ng/mL * T emazepam Negative 50 ng/mL - ng/mL * T HC Negative 50 ng/mL - ng/mL * T ramadol Negative 50 ng/mL - ng/mL * T razodone Negative 50 ng/mL - ng/mL * Z aleplon Negative 20 ng/mL - ng/mL * Bernarda Ziegler 11/19/2024 08:26 :17 PM CDT >reviewed Bernarda Ziegler 11/26/2024 04:37:03 PM CDT >reviewed ?LAB: Presumptive Drug Test - Specimen Type Urine (Collection Date & Time - 11/14/2024 01:48 PM)* Value Reference Range A mphetamines Screen Negative 600 ng/mL - ng/ml * B enzodiazepines Screen Positive H 150 ng/mL - ng/ml * C ocaine Screen Negative 150 ng/mL - ng/ml * M ethamphetamine Screen Negative 600 ng/mL - ng/ml * M ethadone Screen Negative 150 ng/mL - ng/ml * O piates Screen Negative 150 ng/mL - ng/ml * T ricyclic Antidepressants Screen Negative 150 ng/m L - ng/ml * C annabis Screen Negative 150 ng/mL - ng/ml * 6 -BENNETT Screen Negative 60 ng/mL - ng/ml * F entanyl Screen Negative 9 ng/mL - ng/ml * B uprenorphine Screen Negative 75 ng/mL - ng/ml * Bernarda Ziegler 11/19/2024 08:26 :17 PM CDT >reviewed * Procedure Codes: 8 0307 DRUG TEST PRSMV CHEM [id number] Drug test def 1-7 classes Billing Information: * Procedure Codes: 52170 DRUG TEST PRSMV CHEM ANLYZR. [id number] Drug test def 1-7 classes. * Electronic signature of Pavan Ziegler MD on 03/24/2025 at 04:45 PM INDUSTRIAL X RAY OPERATOR Sign off status: Pending * Provider: Abiodun Ziegler MD Date: 0 11/06/2024 Generated for Juliet peace/Janeth/Edmonditting on: 1 05/25/2024 04:45 PM INDUSTRIAL X RAY OPERATOR
--- NOTE | ~2025-03-24 | XR_ITS ---
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 Technique: 2 views obtained. Findings: The lungs are clear, no effusion. No pneumothorax. Heart is normal size. Mediastinal and hilar contours are within normal limits. Bony thorax no acute abnormality. Impression: No acute cardiopulmonary abnormality. Reviewed, dictated and finalized at location P. OF SALES Impression: No acute cardiopulmonary abnormality.
--- OUTSIDE RECORDS SUMMARY | 2025-03-24 16:45 | XMS_ITS | Clinical Summary ---
Author Organization [facility] Address [address] [place] [address] Care Team Providers Care Scenery Builder Name Role Phone Bushra Bailey MD Primary Care Provider [phone] Allergies No known active allergies Medications norethindrone-ethi [...] on file Legal Sex Female 9:59 AM CHECK INSPECTOR Gender Identity Not on file Sexual Orientation Not on file Last Filed Vital Signs Vital Sign Reading Time Taken Comments Blood Pressure 118/65 02/21/2023 5:17 PM CHECK INSPECTOR Pulse 75 02/21/2023 5:17 PM CHECK INSPECTOR Temperature 36.9 C (98.5 F) 02/21/2023 5:17 PM CHECK INSPECTOR Respiratory Rate 16 02/21/2023 5:17 PM CHECK INSPECTOR Oxygen Saturation 99% 02/21/2023 5:17 PM CHECK INSPECTOR Inhaled Oxygen Concentration - - Weight 71.5 kg (157 lb 10.1 oz) 023 10:26 AM CHECK INSPECTOR Height 160 cm (5' 3) 02/21/2023 10:26 AM CHECK INSPECTOR Body Mass Index 27.92 02/21/2023 10:26 AM CHECK INSPECTOR Plan of Treatment Health Maintenance Due Date Last Done Comments Cervical Cancer Screening 1989 Depression Screening 1989 Hepatitis C Screening 1989 DTaP/Tdap/Td Vaccine (1 - Tdap) 01/19/2000 Varicella Vaccines (1 of 2 - 13+ 2-dose series) 2002 Hepatitis B Screening 2007 Regular Well Visit/Exam 18-64 2007 HPV Vaccines (1 - 3-dose SCD M series) 01/19/2016 Covid-19 Vaccine (3 - Modern a risk series) 07/27/2020 06/29/2020, 06/01/2020 Influenza Vaccine (#1) 2024 Pneumococcal vaccine <65 Aged Out No longer eligible based on patient's age to complete this topic Insurance [email or web address] Care Teams Scenery Builder Relationship Specialty Start Date End Date Bushra Bailey MD PCP - General Family Medicine 02/21/23
--- OUTSIDE RECORDS SUMMARY | 2025-03-24 16:45 | XMS_ITS | Clinical Summary ---
Author Organization [facility] Address [address] [place] [address] Care Team Providers Care Cryptographic Clerk Name Role Phone Bushra Bailey MD Primary Care Provider [phone] Allergies No known active allergies Medications 05/05 [...] on file Legal Sex Female 4:01 PM TERRITORY SALES EXECUTIVE Gender Identity Not on file Sexual Orientation Not on file Last Filed Vital Signs Vital Sign Reading Time Taken Comments Blood Pressure 137/79 04/05/2021 9:37 AM TERRITORY SALES EXECUTIVE Pulse 69 04/05/2021 9:37 AM TERRITORY SALES EXECUTIVE Temperature 36.9 C (98.5 F) 04/05/2021 9:37 AM TERRITORY SALES EXECUTIVE Respiratory Rate 18 04/05/2021 9:37 AM TERRITORY SALES EXECUTIVE Oxygen Saturation 98% 04/05/2021 9:37 AM TERRITORY SALES EXECUTIVE Inhaled Oxygen Concentration - - Weight 80.9 kg (178 lb 5.6 oz) 04/05/2021 6:00 A M TERRITORY SALES EXECUTIVE Height 160 cm (5' 3) 04/05/2021 6:00 AM TERRITORY SALES EXECUTIVE Body Mass Index 31.59 04/05/2021 6:00 AM TERRITORY SALES EXECUTIVE Plan of Treatment Health Maintenance Due Date [...] Screening wi th HPV 2019 COVID-19 Vaccine (2024-2 6 season) 2024 04/18/2021, 06/29/2020, 06/01/2020 Influenza Adult (#1) 2025 01/17/2020, 01/27/2015 Hepatitis A Vaccines Aged Out No long er eligible based on patient's age to complete this topic Meningococcal B Vaccine Aged Out No l [...] patient's age to complete this topic Insurance [facility] Stacey Mckeon [address] Care Teams Cryptographic Clerk Relationship Specialty Start Date End Date Bushra Bailey MD [address] [place] [address] PCP - General FAMILY PRACTICE 03/29/21
--- OUTSIDE RECORDS SUMMARY | 2025-03-24 16:46 | XMS_ITS | Patient Health Record ---
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 Name Role Phone Bushra Bailey MD Primary Care Provider UnavailReny Mejia Unavailable [phone] Glenys Vanegas Unavailable [phone] Talib De La Rosa Unavailable [phone] Bruna Cabrera Unavailable [phone] Allergies No Known Allergies Results Component Value Reference Range Notes UDT Reviewed date:12/05/2024 09:00:11 AM Interpretation: Performing Lab: Notes/Report: Amphetamine (AMP) n 0 - 1000 ng/ml Buprenorphine (BUP) n 0 - 10 ng/ml Oxazepam (BZO) p 0 - 300 ng/ml Cocaine (KEANU) n 0 - 300 ng/ml Methamphetamine (mAMP) n 0 - 300 ng/ml Methylenedioxymethamphetamine (MDMA) n 0 - 500 ng/ml Morphine (MOP) n 0 - 25 ng/ml Methadone (MTD) n 0 - 300 ng/ml Oxycodone (OXY) n 0 - 300 ng/ml THC n 0 - 50 ng/ml x n 0 - 1000 ng/ml x n 0 - 1000 ng/ml x n 0 - 300 ng/ml x n 0 - 300 ng/ml Reason For Referral No Information Medications Medication SIG (Take, Route, Frequency, Duration) Notes Start Date End Date Status Oseltamivir Phosphate 75 MG Capsule Oral; Duration: 5 Days Unkno wn Doxepin HCl 25 MG Capsule TAKE 1 TO 2 CA PSULES BY MOUTH AT BEDTIME NEEDED; Duration: 30 Unknown Junel 1.5/30 1.5-30 MG-MCG Tablet TAKE 1 TABLET BY MOUTH EVERY DAY Oral; Duration: 28 Days Unknown busPIRone HCl 10 MG Tablet TAKE 1 TABLET BY MOUTH 3 TIMES A DAY; Duration: 90 Active Tremfya 100 MG/ML Solution Auto-injector Subcutaneous; Duration: 56 Days Active Altavera 0.15-30 MG-MCG Tablet 1 tablet Orally Once a day Active Spravato (84 MG Dose) 28 MG/DEVICE Solution Therapy Pack 3 sprays in each nostril Nasally once a week; Duration: 1 days 02/11/2025 Active clonazePAM 1 MG Tablet TAKE 1 TABLET BY MOUTH EVERY DAY NEEDED; Duration: 30 03/16/2025 Active Doxepin HCl 25 MG Capsule 1-2 capsule at bedtime Orally Once a day; Duration: 30 days As needed 01/28/2025 Active FLUoxetine HCl 40 MG Capsule 1 capsule Oral Once a day; Duration: 90 days Active Immunizations Vaccine Route Administration Date Status Comme nts Moderna Covid-19 Vaccine 1st dose Unknown 06/01/2020 Ad ministered Moderna Covid-19 Vaccine 1st dose Unknown 06/29/2020 Ad ministered Social History Tobacco Use: Social History Observation Description Date Details (start date - stop date) Never Smoker NA - NA Sex Assigned At : Social History Observation Description Sex Assigned At Female Social History Miscellaneous: Social Info Question Answer Notes Safety issues: Are there any firearms in the house? No Social History Social Info Question Answer Notes Household: Marital Status: Number of Adults in household: 2 Number of Children in Household: 2 Level of Education: Finished College Drug/Alcohol: Social Info Question Answer Notes Drugs Have you used drugs other than those for medical reasons in the past 12 months? Yes Methamphetamine? No Crack? No LSD? No Ecstacy? No Prescription opiates? No Marijuana? Yes Ketamine? No PCP? No Is there a minor (18 years or younger) at risk at home? No Are you still using? Yes AUDIT-C (Standard) Did you have a drink containi ng alcohol in the past year? Yes How often did you have six or more drinks on one occasion in the past year? Never (0 point) How many drinks did you have on a typical day when you were drinking in the past year? 3 or 4 drinks (1 point) How often did you have a drink containing alcohol in the past year? 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 Social History Migrated Social History Alcohol Intake: None 02/26/2023,Tobacco Years: Never smoker 02/26/2023 Problems Problem Type SNOMED Code ICD Code Onset Dates Problem Status W/U Status Risk Notes Problem Severe recurrent major depression without psychotic features (09016060) Major depressive disorder, recurrent severe without psychotic features (F33.2) 023 Active confirmed Problem Generalized anxiety disorder (76155216) Generalized anxiety disorder (F41.1) Active confirmed Problem Primary insomnia (0741811) Primary insomnia (F51.01) Active confirmed Problem Screening for cardiovascular system disease (924772520) Encounter for screening for cardiovascular disorders (Z13.6) Active confirmed Problem Generalized anxiety disorder (75485582) AKOSUA (generalized anxiety disorder) (F41.1) Active confirmed Problem Non-suicidal self-harm (R45.88) Active confirmed Problem Self-mutilation (402242905) Self-mutilation (Z72.89) Active confirmed Problem Insomnia disorder related to another mental disorder (08429983) Psychophysiological insomnia (F51.04) Active confirmed Problem Feeling suicidal (374996931) Passive suicidal ideations (R45.851) Active confirmed Vital Signs Heart Rate 85 /min 03/20/2025 Oximetry 99 % 03/20/2025 Height-cm 160.02 cm 03/20/2025 Blood pressure diastolic 88 mm Hg 03/20/2025 Weight-kg 104.33 kg 01/28/2025 Height 63.00 in 03/20/2025 Blood pressure systolic 135 mm Hg 03/20/2025 Weight 230 lbs 01/28/2025 BMI 40.74 kg/m2 01/28/2025 Encounters Encounter Location Date Provider Diagnosis [facility] [address] [facility] [address] [place] [address] 03/28/2024 Talib Clubb Major depressive disorder, recurrent severe without psychotic features F33.2 [facility] [address] [facility] [address] [place] [address] 04/11/2024 Talib Clubb Major depressive disorder, recurrent severe without psychotic features F33.2 [facility] [address] [facility] [address] [place] [address] 04/25/2024 Talib Clubb Major depressive disorder, recurrent severe without psychotic features F33.2 and Hypertension, unspecified type 401.9 [facility] [address] [facility] [address] [place] [address] 05/09/2024 Talib Clubb Major depressive disorder, recurrent severe without psychotic features F33.2 and Passive suicidal ideations R45.851 [facility] [address] [facility] [address] [place] [address] 05/22/2024 Reny Damon Major depressive disorder, recurrent severe without psychotic features F33.2 ; Generalized anxiety disorder F41.1 ; Primary insomnia F51.01 and Other detention (current) drug therapy Z79.899 [facility] [place] [address] [address] 06/06/2024 Talib Clubb Major depressive disorder, recurrent severe without psychotic features F33.2 and Passive suicidal ideations R45.851 [facility] [place] [address] [address] 06/13/2024 Talib Clubb Major depressive disorder, recurrent severe without psychotic features F33.2 and Passive suicidal ideations R45.851 [facility] [email or web address] [place] [address] [address] 06/20/2024 Talib Clubb Major depressive disorder, recurrent severe without psychotic features F33.2 and Passive suicidal ideations R45.851 [facility] [email or web address] [place] [address] [address] 06/27/2024 Tlaib Clubb Major depressive disorder, recurrent severe without psychotic features F33.2 [facility] [address] [address] 07/04/2024 Talib Clubb Major depressive disorder, recurrent severe without psychotic features F33.2 ; Encounter for screening for cardiovascular disorders Z13.6 and Dietary counseling and surveillance Z71.3 [facility] [email or web address] [facility] [address] [facility] [address] [place] [address] 07/11/2024 Talib Clubb Major depressive disorder, recurrent severe without psychotic features F33.2 and Encounter for screening for cardiovascular disorders Z13.[address] [address] 07/18/2024 Talib Clubb Major depressive disorder, recurrent severe without psychotic features F33.2 and Encounter for screening for cardiovascular disorders Z13.[address] [address] 07/25/2024 Talib Clubb Major depressive disorder, recurrent severe without psychotic features F33.2 ; Non-suicidal self-harm R45.88 ; Encounter for screening for cardiovascular disorders Z13.6 and Dietary counseling and surveillance Z71.[address] [address] 07/31/2024 Reny Kurmatt Encounter for screening for cardiovascular disorders Z13.6 ; Encounter for screening for depression Z13.31 ; Major depressive disorder, recurrent severe without psychotic features F33.2 ; Non-suicidal self-harm R45.88 ; Dietary counseling and surveillance Z71.3 ; Generalized anxiety disorder F41.1 and Primary insomnia F51.[address] [address] 08/01/2024 Talib Clubb Major depressive disorder, recurrent severe without psychotic features F33.2 ; Encounter for screening for cardiovascular disorders Z13.6 and Non-suicidal self-harm R45.[address] [address] 08/08/2024 Reny Kurilla Major depressive disorder, recurrent severe without psychotic features F33.2 and Encounter for screening for cardiovascular disorders Z13.[address] [address] 08/15/2024 Talib Clubb Major depressive disorder, recurrent severe without psychotic features F33.2 ; Non-suicidal self-harm R45.88 ; Encounter for screening for cardiovascular disorders Z13.6 and Dietary counseling and surveillance Z71.3 [facility] [address] [address] 08/22/2024 Talib Clubb Major depressive disorder, recurrent severe without psychotic features F33.2 ; Non-suicidal self-harm R45.88 ; Generalized anxiety disorder F41.1 ; Encounter for screening for cardiovascular disorders Z13.6 and Dietary counseling and surveillance Z71.3 [facility] [email or web address] [place] [address] [facility] [address] [place] [address] 08/29/2024 Talib Clubb Major depressive disorder, recurrent severe without psychotic features F33.2 and Encounter for screening for cardiovascular disorders Z13.6 [place] [address] [facility] [address] [place] [address] 09/05/2024 Talib Clubb Major depressive disorder, recurrent severe without psychotic features F33.2 and Encounter for screening for cardiovascular disorders Z13.6 [place] [address] [facility] [address] [place] [address] 09/12/2024 Talib Clubb Major depressive disorder, recurrent severe without psychotic features F33.2 ; Encounter for screening for cardiovascular disorders Z13.6 and Generalized anxiety disorder F41.[address] [address] 09/19/2024 Talib Clubb Major depressive disorder, recurrent severe without psychotic features F33.2 ; Encounter for screening for cardiovascular disorders Z13.6 ; Encounter for screening for depression Z13.31 and Generalized anxiety disorder F41.1 [facility] [employer] [address] 09/26/2024 Talib Clubb Major depressive disorder, recurrent severe without psychotic features F33.2 ; Encounter for screening for cardiovascular disorders Z13.6 and Generalized anxiety disorder F41.1 [facility] [place] [address] [address] 10/03/2024 Talib Clubb Encounter for screening for depression Z13.31 ; Major depressive disorder, recurrent severe without psychotic features F33.2 ; Generalized anxiety disorder F41.1 and Encounter for screening for cardiovascular disorders Z13.6 [facility] [place] [address] [address] 10/07/2024 Reny Damon Major depressive disorder, recurrent severe without psychotic features F33.2 ; Non-suicidal self-harm R45.88 ; Generalized anxiety disorder F41.1 ; Primary insomnia F51.01 ; Encounter for screening for cardiovascular disorders Z13.6 ; Dietary counseling and surveillance Z71.3 and Encounter for screening for depression Z13.31 [facility] [email or web address] [place] [address] [facility] [address] [place] [address] 10/10/2024 Talib Clubb Major depressive disorder, recurrent severe without psychotic features F33.2 ; Non-suicidal self-harm R45.88 ; Generalized anxiety disorder F41.1 ; Primary insomnia F51.01 and Encounter for screening for cardiovascular disorders Z13.6 [place] [address] [address] 10/16/2024 Talib Clubb Major depressive disorder, recurrent severe without psychotic features F33.2 ; Encounter for screening for cardiovascular disorders Z13.6 ; Non-suicidal self-harm R45.88 ; Generalized anxiety disorder F41.1 and Primary insomnia F51.01 [place] [address] [address] 10/24/2024 Talib Clubb Major depressive disorder, recurrent severe without psychotic features F33.2 ; Generalized anxiety disorder F41.1 ; Primary insomnia F51.01 and Non-suicidal self-harm R45.[address] [address] 10/31/2024 Talib Clubb Major depressive disorder, recurrent severe without psychotic features F33.2 ; Generalized anxiety disorder F41.1 ; Primary insomnia F51.01 and Non-suicidal self-harm R45.88 [place] [address] [address] 11/07/2024 Talib Clubb Major depressive disorder, recurrent severe without psychotic features F33.2 ; Generalized anxiety disorder F41.1 ; Primary insomnia F51.01 and Non-suicidal self-harm R45.88 [place] [address] [address] 11/14/2024 Talib Clubb Major depressive disorder, recurrent severe without psychotic features F33.2 ; Generalized anxiety disorder F41.1 ; Primary insomnia F51.01 ; Encounter for screening for cardiovascular disorders Z13.6 and Dietary counseling and surveillance Z71.3 [facility], [place] [address] [address] 11/21/2024 Talib Clubb [facility], [place] [address] [address] 11/28/2024 Talib Clubb Major depressive disorder, recurrent severe without psychotic features F33.2 ; Generalized anxiety disorder F41.1 and Primary insomnia F51.01 [facility], [facility] [address] [place] [address] 12/04/2024 Reny Kurilla Major depressive disorder, recurrent severe without psychotic features F33.2 ; Non-suicidal self-harm R45.88 ; Generalized anxiety disorder F41.1 and Primary insomnia F51.01 [facility] [address] [place] [address] 12/05/2024 Talib Clubb Major depressive disorder, recurrent severe without psychotic features F33.2 [facility], [facility] [address] [place] [address] 12/12/2024 Reny Kurilla Major depressive disorder, recurrent severe without psychotic features F33.2 [facility] [address] [place] [address] 12/19/2024 Talib Clubb Major depressive disorder, recurrent severe without psychotic features F33.2 [facility] [address] [place] [address] 12/26/2024 Talib Clubb Major depressive disorder, recurrent severe without psychotic features F33.2 [facility] [address] [place] [address] 01/02/2025 Reny Kurilla Major depressive disorder, recurrent severe without psychotic features F33.2 [facility] [address] [place] [address] 01/08/2025 Glenys Hemann Major depressive disorder, recurrent severe without psychotic features F33.2 and AKOSUA (generalized anxiety disorder) F41.1 [facility], [facility] [address] [place] [address] 01/09/2025 Talib Clubb Major depressive disorder, recurrent severe without psychotic features F33.2 [facility] [address] [place] [address] 01/16/2025 Talib Clubb Major depressive disorder, recurrent severe without psychotic features F33.2 [facility] [address] [place] [address] 01/23/2025 Talib Clubb Major depressive disorder, recurrent severe without psychotic features F33.2 [facility], [facility] [address] [place] [address] 01/28/2025 Reny Kurilla Major depressive disorder, recurrent severe without psychotic features F33.2 ; Non-suicidal self-harm R45.88 ; Generalized anxiety disorder F41.1 and Primary insomnia F51.01 [facility], [facility] [address] [place] [address] 01/30/2025 Talib Clubb Major depressive disorder, recurrent severe without psychotic features F33.2 [facility], [facility] [address] [place] [address] 02/06/2025 Talib Clubb Major depressive disorder, recurrent severe without psychotic features F33.2 [facility], [facility] [address] [place] [address] 02/13/2025 Reny Kurilla Major depressive disorder, recurrent severe without psychotic features F33.2 [facility], [facility] [address] [place] [address] 02/20/2025 Talib Clubb Major depressive disorder, recurrent severe without psychotic features F33.2 [facility], [facility] [address] [place] [address] 02/27/2025 Talib Clubb Major depressive disorder, recurrent severe without psychotic features F33.2 [facility], [facility] [address] [place] [address] 03/06/2025 Reny Kurilla Major depressive disorder, recurrent severe without psychotic features F33.2 [facility], [facility] [address] [place] [address] 03/13/2025 Bruna Cabrera Major depressive disorder, recurrent severe without psychotic features F33.2 [facility], [facility] [address] [place] [address] 03/20/2025 Talib Clubb Major depressive disorder, recurrent severe without psychotic features F33.2 [facility], [facility] [address] [place] [address] 05/23/2024 Reny Kurilla [facility], [facility] [address] [place] [address] 06/06/2024 [facility] Kurilla [facility] [address] [place] [address] 07/09/2024 Reny Kurilla Major depressive disorder, recurrent severe without psychotic features F33.2 [facility] [address] [place] [address] 07/15/2024 Reny Kurilla Major depressive disorder, recurrent severe without psychotic features F33.2 [facility] [address] [place] [address] 08/22/2024 Reny Kurilla Major depressive disorder, recurrent severe without psychotic features F33.2 [facility] [address] [place] [address] 11/10/2024 Reny Kurilla Major depressive disorder, recurrent severe without psychotic features F33.2 [facility] [address] [facility] [address] [place] [address] 01/01/2025 Reny Kurilla Major depressive disorder, recurrent severe without psychotic features F33.2 [facility] [address] [facility] [address] [place] [address] 02/11/2025 Reny Kurilla Major depressive disorder, recurrent severe without psychotic features F33.2 [facility] [address] [facility] [address] [place] [address] 05/26/2024 Reny Kurilla Generalized anxiety disorder F41.1 [facility] [address] [place] [address] 08/08/2024 Erny Kurilla [facility] [address] [facility] [address] [place] [address] 08/11/2024 Reny Kurilla [facility] [address] [place] [address] 10/08/2024 Reny Kurilla Major depressive disorder, recurrent severe without psychotic features F33.2 [facility] [address] [facility] [address] [place] [address] 12/04/2024 Reny Kurilla Assessments Encounter Date Diagnosis (ICD Code) Assessment Notes Treatment Notes Treatment Clinical Notes Section Notes 07/09/2024 Major depressive disorder, recurrent severe without psychotic 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) 01/01/2025 Major depressive disorder, recurrent severe without psychotic 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) 02/11/2025 Major depressive disorder, recurrent severe without psychotic 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) 11/10/2024 Major depressive disorder, recurrent severe without psychotic 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) 07/15/2024 Major depressive disorder, recurrent severe without psychotic 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) 08/22/2024 Major depressive disorder, recurrent severe without psychotic 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) 05/26/2024 Generalized anxiety disorder (ICD-10 - F41.1) 10/03/2024 Major depressive disorder, recurrent severe without psychotic 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) continue current treatment as prescribed by primary psychiatric care provider 07/31/2024 Encounter for screening for cardiovascular disorders (ICD-10 - Z13.6) 10/10/2024 Major depressive disorder, recurrent severe without psychotic 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) continue current treatment as prescribed by primary psychiatric care provider 10/03/2024 Encounter for screening for depression (ICD-10 - Z13.31) 11/14/2024 Major depressive disorder, recurrent severe without psychotic 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) continue current treatment as prescribed by primary psychiatric care provider 11/07/2024 Major depressive disorder, recurrent severe without psychotic 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) continue current treatment as prescribed by primary psychiatric care provider 10/31/2024 Major depressive disorder, recurrent severe without psychotic 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) 10/31/2024 Generalized anxiety disorder (ICD-10 - F41.1) 10/24/2024 Major depressive disorder, recurrent severe without psychotic 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) continue current treatment as prescribed by primary psychiatric care provider 10/24/2024 Generalized anxiety disorder (ICD-10 - F41.1) 12/19/2024 Major depressive disorder, recurrent severe without psychotic 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) continue current treatment as prescribed by primary psychiatric care provider 12/26/2024 Major depressive disorder, recurrent severe without psychotic 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) Continue medication as prescribed by primary psychiatric care provider Continue medication as prescribed by primary psychiatric care provider 01/30/2025 Major depressive disorder, recurrent severe without psychotic 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) Continue medication as prescribed by primary psychiatric care provider Spravato administered per protocol. Patient was observed for two hours post-administra tion without incident. Patient tolerated the treatment well. Will continue treatment per established schedule. Patient instructed not to drive or operate machinery for the remainder of theday. 02/06/2025 Major depressive disorder, recurrent severe without psychotic 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) Continue medication as prescribed by primary psychiatric care provider Spravato administered per protocol. Patient was observed for two hours post-administra tion without incident. Patient tolerated the treatment well. Will continue treatment per established schedule. Patient instructed not to drive or operate machinery for the remainder of theday. 11/28/2024 Major depressive disorder, recurrent severe without psychotic 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) continue current treatment as prescribed by primary psychiatric care provider 02/13/2025 Major depressive disorder, recurrent severe without psychotic 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) 02/20/2025 Major depressive disorder, recurrent severe without psychotic 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) Continue medication as prescribed by primary psychiatric care provider Spravato administered per protocol. Patient was observed for two hours post-administra tion without incident. Patient tolerated the treatment well. Will continue treatment per established schedule. Patient instructed not to drive or operate machinery for the remainder of theday. 02/27/2025 Major depressive disorder, recurrent severe without psychotic 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) Continue medication as prescribed by primary psychiatric care provider Spravato administered per protocol. Patient was observed for two hours post-administra tion without incident. Patient tolerated the treatment well. Will continue treatment per established schedule. Patient instructed not to drive or operate machinery for the remainder of theday. 03/06/2025 Major depressive disorder, recurrent severe without psychotic 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) 03/13/2025 Major depressive disorder, recurrent severe without psychotic 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) Continue medication as prescribed by primary psychiatric care provider Spravato administered per protocol. Patient was observed for two hours post-administra tion without incident. Patient tolerated the treatment well. Will continue treatment per established schedule. Patient instructed not to drive or operate machinery for the remainder of theday. 03/20/2025 Major depressive disorder, recurrent severe without psychotic 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) Continue medication as prescribed by primary psychiatric care provider Spravato administered per protocol. Patient was observed for two hours post-administra tion without incident. Patient tolerated the treatment well. Will continue treatment per established schedule. Patient instructed not to drive or operate machinery for the remainder of theday. 01/02/2025 Major depressive disorder, recurrent severe without psychotic 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) 01/08/2025 Major depressive disorder, recurrent severe without psychotic 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) 01/09/2025 Major depressive disorder, recurrent severe without psychotic 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) Continue medication as prescribed by primary psychiatric care provider Spravato administered per protocol. Patient was observed for two hours post-administra tion without incident. Patient tolerated the treatment well. Will continue treatment per established schedule. Patient instructed not to drive or operate machinery for the remainder of theday. 01/16/2025 Major depressive disorder, recurrent severe without psychotic 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) Continue medication as prescribed by primary psychiatric care provider Spravato administered per protocol. Patient was observed for two hours post-administra tion without incident. Patient tolerated the treatment well. Will continue treatment per established schedule. Patient instructed not to drive or operate machinery for the remainder of theday. 01/23/2025 Major depressive disorder, recurrent severe without psychotic 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) Continue medication as prescribed by primary psychiatric care provider Spravato administered per protocol. Patient was observed for two hours post-administra tion without incident. Patient tolerated the treatment well. Will continue treatment per established schedule. Patient instructed not to drive or operate machinery for the remainder of theday. 01/28/2025 Major depressive disorder, recurrent severe without psychotic 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) 12/12/2024 Major depressive disorder, recurrent severe without psychotic 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) 12/05/2024 Major depressive disorder, recurrent severe without psychotic 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) continue current treatment as prescribed by primary psychiatric care provider 12/04/2024 Major depressive disorder, recurrent severe without psychotic 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) 07/11/2024 Major depressive disorder, recurrent severe without [...] SPRAVATO and go away the same day. 07/18/2024 Major depressive disorder, recurrent severe without [...] day. 07/25/2024 Non-suicidal self-harm (ICD-10 - R45.88) 08/01/2024 Major depressive disorder, recurrent severe without [...] efforts have been made to correct them. 06/06/2024 Major depressive disorder, recurrent severe without psychotic 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) continue current treatment as prescribed by primary psychiatric care provider. 06/06/2024 Passive suicidal ideations (ICD-10 - R45.851) 06/13/2024 Major depressive disorder, recurrent severe without psychotic 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) continue current treatment as prescribed by primary psychiatric care provider. 06/20/2024 Major depressive disorder, recurrent severe without [...] severe without psychotic 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) 03/28/2024 Major depressive disorder, recurrent severe without [...] and consider treatment plan adjustments if needed. 07/25/2024 Major depressive disorder, recurrent severe without psychotic 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) 08/08/2024 Major depressive disorder, recurrent severe without [...] psychotropic medications. -Crisis prevention hotline 988. 08/15/2024 Non-suicidal self-harm (ICD-10 - R45.88) 08/22/2024 Major depressive disorder, recurrent severe without psychotic 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) continue current treatment as prescribed by primary psychiatric care provider 08/15/2024 Major depressive disorder, recurrent severe without psychotic 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) continue current treatment as prescribed by primary psychiatric care provider 08/22/2024 Non-suicidal self-harm (ICD-10 - R45.88) 08/29/2024 Major depressive disorder, recurrent severe without [...] screening for cardiovascular disorders (ICD-10 - Z13.6) 09/26/2024 Encounter for screening for cardiovascular disorders (ICD-10 - Z13.6) 10/07/2024 Major depressive disorder, recurrent severe without psychotic 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) 10/07/2024 Non-suicidal self-harm (ICD-10 - R45.88) 10/08/2024 Major depressive disorder, recurrent severe without psychotic 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) 10/16/2024 Major depressive disorder, recurrent severe without psychotic 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) continue current treatment as prescribed by primary psychiatric care provider continue current treatment as prescribed by primary psychiatric care provider 09/26/2024 Major depressive disorder, recurrent severe without psychotic 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) continue current treatment as prescribed by primary psychiatric care provider 09/26/2024 Generalized anxiety disorder (ICD-10 - F41.1) 10/16/2024 Encounter for screening for cardiovascular disorders (ICD-10 - Z13.6) 10/07/2024 Generalized anxiety disorder (ICD-10 - F41.1) 09/19/2024 Encounter for screening for depression (ICD-10 - Z13.31) 09/12/2024 Generalized anxiety disorder (ICD-10 - F41.1) 09/05/2024 Encounter for screening for cardiovascular disorders (ICD-10 - Z13.6) 08/29/2024 Encounter for screening for cardiovascular disorders (ICD-10 - Z13.6) 08/15/2024 Encounter for screening for cardiovascular disorders (ICD-10 - Z13.6) 08/22/2024 Generalized anxiety disorder (ICD-10 - F41.1) 08/08/2024 Encounter for screening for cardiovascular disorders (ICD-10 - Z13.6) 07/25/2024 Encounter for screening for cardiovascular disorders (ICD-10 - Z13.6) 04/25/2024 Hypertension, unspecified type (ICD9-CM - 401.9) [...] is aware of crisis prevention hotline number (957) and encourage use if needed. - Encourage patient to discuss suicidal thoughts with therapist. - Monitor suicidal ideation during follow-ups and consider treatment plan adjustments if needed. 05/22/2024 Generalized anxiety disorder (ICD-10 - F41.1) [...] 06/13/2024 Passive suicidal ideations (ICD-10 - R45.851) 08/01/2024 Encounter for screening for cardiovascular disorders [...] have been made to correct them. 07/18/2024 Encounter for screening for cardiovascular disorders (ICD-10 - Z13.6) 07/11/2024 Encounter for screening for cardiovascular disorders (ICD-10 - Z13.6) 01/08/2025 AKOSUA (generalized anxiety disorder) (ICD-10 - F41.1) 11/28/2024 Generalized anxiety disorder (ICD-10 - F41.1) 01/28/2025 Non-suicidal self-harm (ICD-10 - R45.88) 12/04/2024 Non-suicidal self-harm (ICD-10 - R45.88) 10/24/2024 Primary insomnia (ICD-10 - F51.01) 10/31/2024 Primary insomnia (ICD-10 - F51.01) 11/07/2024 Generalized anxiety disorder (ICD-10 - F41.1) 11/14/2024 Generalized anxiety disorder (ICD-10 - F41.1) 10/03/2024 Generalized anxiety disorder (ICD-10 - F41.1) 10/10/2024 Non-suicidal self-harm (ICD-10 - R45.88) 07/31/2024 Encounter for screening for depression (ICD-10 - Z13.31) 07/31/2024 Major depressive disorder, recurrent severe without psychotic 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) 10/10/2024 Generalized anxiety disorder (ICD-10 - F41.1) 11/14/2024 Primary insomnia (ICD-10 - F51.01) 11/07/2024 Primary insomnia (ICD-10 - F51.01) 10/31/2024 Non-suicidal self-harm (ICD-10 - R45.88) 10/24/2024 Non-suicidal self-harm (ICD-10 - R45.88) 11/28/2024 Primary insomnia (ICD-10 - F51.01) 01/28/2025 Generalized anxiety disorder (ICD-10 - F41.1) 12/04/2024 Generalized anxiety disorder (ICD-10 - F41.1) 08/01/2024 Non-suicidal self-harm (ICD-10 - R45.88) Treatment-resis [...] efforts have been made to correct them. 07/04/2024 Dietary counseling and surveillance (ICD-10 - Z71.3) 05/22/2024 Primary insomnia (ICD-10 - F51.01) 08/22/2024 Encounter for screening for cardiovascular disorders (ICD-10 - Z13.6) 09/19/2024 Generalized anxiety disorder (ICD-10 - F41.1) 10/07/2024 Primary insomnia (ICD-10 - F51.01) 10/16/2024 Non-suicidal self-harm (ICD-10 - R45.88) 10/16/2024 Generalized anxiety disorder (ICD-10 - F41.1) 10/07/2024 Encounter for screening for cardiovascular disorders (ICD-10 - Z13.6) 07/25/2024 Dietary counseling and surveillance (ICD-10 - Z71.3) 08/15/2024 Dietary counseling and surveillance (ICD-10 - Z71.3) 05/22/2024 Other detention (current) drug therapy (ICD-10 - Z79.899) 12/04/2024 Primary insomnia (ICD-10 - F51.01) 01/28/2025 Primary insomnia (ICD-10 - F51.01) 11/07/2024 Non-suicidal self-harm (ICD-10 - R45.88) 11/14/2024 Encounter for screening for cardiovascular disorders (ICD-10 - Z13.6) 10/10/2024 Primary insomnia (ICD-10 - F51.01) 10/03/2024 Encounter for screening for cardiovascular disorders (ICD-10 - Z13.6) 07/31/2024 Non-suicidal self-harm (ICD-10 - R45.88) 07/31/2024 Dietary counseling and surveillance (ICD-10 - Z71.3) 10/10/2024 Encounter for screening for cardiovascular disorders (ICD-10 - Z13.6) 07/31/2024 Generalized anxiety disorder (ICD-10 - F41.1) 11/14/2024 Dietary counseling and surveillance (ICD-10 - Z71.3) 08/22/2024 Dietary counseling and surveillance (ICD-10 - Z71.3) 10/07/2024 Dietary counseling and surveillance (ICD-10 - Z71.3) 10/16/2024 Primary insomnia (ICD-10 - F51.01) 10/07/2024 Encounter for screening for depression (ICD-10 - Z13.31) 07/31/2024 Primary insomnia (ICD-10 - F51.01) 05/09/2024 Other 1. Depression - Patient rates her depression as 07/24. - Plan: -continue current treatment as prescribed by primary psychiatric care provider. - encourage psychotherapy - patient aware of crisis hotline and when to seek emergency services. 2. Anxiety - Patient rates her anxiety as 07/24. - Plan: - continue treatment as prescribed [...] - Aware of crisis prevention hotline number (988). - Currently in therapy, attending sessions every [...] c. Encourage use of crisis prevention hotline (316) if needed. 2. Anxiety - AKOSUA-7: 8 - Patient rates anxiety at 5/10. -PLAN: a. Continue current medication regimen. b. Recommend practicing relaxation techniques like deep breathing exercises and progressive muscle relaxation. c. Refer for cognitive-behavi oral therapy (CBT) to address anxiety symptoms. 3. Passive Suicidal Ideation - Patient endorses passive suicidal thoughts without plan or intent. - Plan: a. Reinforce use of crisis prevention hotline (423) if suicidal thoughts worsen. b. Assess for [...] have been made to correct them. 07/18/2024 Deepika Nuñez, a female patient with major depressive [...] providers. - Follow-up with primary psychiatric care provider, Reny, on 07-31-2024 to address anxiety concerns. Self-Harm [...] - Plan: a. Continue current medication regimen. 11/28/2024 Other 1. Major Depressive Disorder - Patient rates depression at 4/10. - Plan: a. Administer Spravato as scheduled. b. Continue current medication regimen (no changes or side effects reported). c. Follow-up appointment with primary psychiatric care provider Reny scheduled for 12/04/2024. d. Spravato appointment scheduled for 12/05/2024. 2. Anxiety - Patient rates anxiety at 6/10. - No specific anxiety-related symptoms or triggers discussed in this encounter. 3. Suicidal Ideation and Self-Harm - Patient denies suicidal ideation or thoughts of self-harm. 4. Thoughts of Harming Others - Patient denies intent to harm others. 5. Hallucinations, Delusions, and Paranoia - Patient denies hallucinations, delusions, or paranoia. 6. Sleep - Patient reports approximately 6 hours of sleep last night. 7. Appetite - Patient reports normal appetite. 8. Medication Management - Plan: a. Continue current medication regimen. b. Patient instructed not to drive after Spravato administration. c. Patient expresses understanding of risks and benefits associated with Spravato treatment. 12/04/2024 Other Discontinue lithium -discussed monitoring for increase in depression, suicidal ideation-contac t office and restart lithium if this occurs Patient educated on all medications including potential benefits, side effects, risks. Educated on proper dosing schedule and importance of compliance. [place] PDMP report checked and consistent with prescription history, no controlled substance prescriptions from other providers. Cont esketamine treatments on a weekly schedule for depression maintenance Referred to therapy, her current counselor is leaving her position so needing to re-establish care -Assessment and treatment plan reviewed with patient. -Compliance with treatment plan importance discussed. -Discussed the risks/benefits of this medication -Discussed medication side effects. -Contact office if symptoms worsen. -Discussed that it can take up to 6-8 weeks to see full therapeutic effects of psychotropic medications. -Crisis prevention hotline 988. 12/05/2024 Other 1. Major Depressive Disorder - Patient rates depression at 3/10. - Plan: a. Administer Spravato as scheduled. b. Discussed risks and benefits of Spravato treatment; patient expressed understanding. c. Patient instructed not to drive after Spravato administration. d. Monitor depression symptoms at future appointments. 2. Anxiety - Patient rates anxiety at 3/10. - Plan: a. Continue current medication regimen. b. Monitor anxiety symptoms at future appointments. 3. Medication Management - Plan: a. Administer Spravato as scheduled. b. Monitor medication adherence and side effects. Follow-up: - Schedule next Spravato treatment for 12-12-2024. - Plan: a. Follow-up appointment with primary psychiatric care provider Reny scheduled for 01-28-2025. 12/12/2024 Other Continue current medications - discussed if irritability does not improve in 1-2 weeks- contact office and can consider other medication adjustment versus getting back on low dose lithium however concern for weight gain. Cont esketamine tx as prescribed -Assessment and treatment plan reviewed with patient. -Compliance with treatment plan importance discussed. -Discussed the risks/benefits of this medication -Discussed medication side effects. -Contact office if symptoms worsen. -Discussed that it can take up to 6-8 weeks to see full therapeutic effects of psychotropic medications. -Crisis prevention hotline 988. 12/19/2024 Other 1. Depression and Anxiety - Patient rates depression at 3/10. - Patient rates anxiety at 4/10. - Plan: a. Administer Spravato treatment as scheduled. b. Continue current medication regimen. c. Follow-up appointment with primary psychiatric care provider Reny on 01-28-2025. d. Next therapy appointment with Glenys on January 08, 2025. 2. Risk Assessment and Safety - Denied thoughts of suicide. - Denied thoughts of wanting to hurt herself or anybody else. - Denied experiencing hallucinations, delusions or paranoia. - Plan: a. Continue monitoring suicidal ideation at each visit. b. Maintain engagement in treatment including Spravato administration and therapy appointments. 3. Sleep and Appetite - Sleep is approximately 6 hours per night. - Appetite is reported as normal. - Plan: a. Monitor sleep patterns and appetite status. 4. Medication Management - Patient denies side effects from current medications. - Reports no new mental adjustments since the last visit. - Plan: a. Continue current medication regimen. b. Monitor medication adherence and side effects. Follow-up: - Next Spravato treatment scheduled for December 26, 2024. - Plan: a. Continue Spravato treatment as scheduled. b. Maintain regular follow-up with psychiatric care provider and therapy sessions. 12/26/2024 Other 1. Major Depressive Disorder - Patient rates depression at 3/10. - Plan: a. Administer Spravato as scheduled. b. Provided education on benefits of Spravato treatment. c. Instructed patient not to drive after Spravato administration. d. Follow-up appointment with primary psychiatric care provider Reny on 01-28-2025. 2. Anxiety - Patient rates anxiety at 5/10. - Plan: a. Continue current treatment regimen. b. Next therapy appointment with Glenys on 01-08-2025. Follow-up: - Next Spravato treatment scheduled for January 02, 2025. 01/02/2025 Other Continue current treatment plan as prescribed 01/28/2025 Other Stable on current medication regimen, continue at current doses. -Refills sent in today -No concerns today Patient educated on all medications including potential benefits, side effects, risks. Educated on proper dosing schedule and importance of compliance. [place] report checked and consistent with prescription history, no controlled substance prescriptions from other providers. Cont esketamine treatments on a weekly schedule -The patient continues to meet criteria for ongoing esketamine maintenance therapy, with evidence supporting sustained improvement in depressive symptoms and functional outcomes in TRD -Assessment and treatment plan reviewed with patient. -Compliance with treatment plan importance discussed. -Discussed the risks/benefits of this medication -Discussed medication side effects. -Contact office if symptoms worsen. -Discussed that it can take up to 6-8 weeks to see full therapeutic effects of psychotropic medications. -Crisis prevention hotline 469. 02/13/2025 Other Continue current medications Continue esketmaine treatments as prescribed 03/06/2025 Other Continue esketamine treatments as scheduled Continue current medications -refill for fluoxetine sent in today Plan Of Treatment Pending Test Test Name Order Date Vitamin B12 and Folate 01/01/2024 Iron, Serum 01/01/2024 Hemoglobin A1c 01/01/2024 CBC With Differential/Platelet Paisley (Eskalith), Serum 01/01/2024 Vitamin D, 1,25 Dihydroxy 01/01/2024 TSH+Free T4 01/01/2024 Comp. Metabolic Panel (14) 01/01/2024 Next Appt Details Provider Name:Kobi Loomis , 03/26/2025 03:00:00 PM, [address], [address], [address], Provider Name:Bruna alfonso, 03/27/2025 08:00:00 AM, [address], [facility] [address], [address], Provider Name:Bruna alfonso, 04/03/2025 08:00:00 AM, [address], [facility] [address], [address], Provider Name:Bruna alfonso, 04/10/2025 08:00:00 AM, [address], [facility] [address], [place], [address], Insurance Providers Payer Name Payer Address Payer Phone Subscriber Number Group Number Insured Name Patient Relationship to Insured Coverage Start Date Coverage End Date [employer] [address] [place] [address] [id number] MEENA ROOT Spouse - patient is the [...] Spravato (84 MG Dose) 11/14/2024 84 mg Spravato (84 MG Dose) 11/28/2024 84 mg Spravato (84 MG Dose) 12/05/2024 84 mg Spravato (84 MG Dose) 12/12/2024 84 mg Spravato (84 MG Dose) 12/19/2024 84 mg Spravato (84 MG Dose) 12/26/2024 84 mg Spravato (84 MG Dose) 01/02/2025 84 mg Lot #: [id number] Spravato (84 MG Dose) 01/09/2025 84 mg Spravato (84 MG Dose) 01/16/2025 84 mg LOT : [id number] Spravato (84 MG Dose) 01/23/2025 84 mg Spravato (84 MG Dose) 01/30/2025 84 mg Spravato (84 MG Dose) 02/06/2025 84 mg Spravato (84 MG Dose) 02/13/2025 84 mg Spravato (84 MG Dose) 02/20/2025 84 mg Spravato (84 MG Dose) 02/27/2025 84 mg Spravato (84 MG Dose) 03/06/2025 84 mg 25C [id number] Spravato (84 MG Dose) 03/13/2025 84 mg Spravato (84 MG Dose) 03/20/2025 84 mg Medical (General) History Medical History History ICD Code Problems: Generalized anxiety disorder Primary insomnia Severe recurrent major depression withou t psychotic features Past Psychiatric History: Anxiety Disord er,Major Depressive Episode undefined abdominal aortic aneurysm: No atrial fibrillation: No chronic fatigue syndrome: No essential tremor: No hyperlipidemia: No hypertension: No Parkinson's disease: No restless leg syndrome: No stroke: No subdural hematoma: No type 1 diabetes mellitus: No type 2 diabetes mellitus: No vitamin B12 deficiency: No vitamin D deficiency: No Surgical History Surgery Date(Month/Year) Reconstructive surgery 05/29/2006 Other 01/26/2021 Hospitalization History Reason Date(Month/Year) [facility] 2022 for SI
--- OUTSIDE RECORDS SUMMARY | 2025-03-24 16:46 | XMS_ITS | Patient Health Record ---
Author Organization [facility] Address [address] [place], [place] [id number] Care Team Providers Care Emergency Medical Service Coordinator Name Role Phone Bernarda Ziegler Unavailable [phone] Allergies No Known Allergies Results Component Value [...] ng/ml Cannabis Screen Negative 150 ng/mL ng/ml CORTISOL, TOTAL (367) Reviewed date:09/21/2024 05:05:08 PM Interpretation: Performing Lab:Armando PEREZ-Cmzgzy56809 Wyatt Bond, VuafezMW[address] Catalina Zhou MD Notes/Report: CORTISOL, TOTAL 0.9 L Reference Range: For 8 a.m.(7-9 a.m.) Specimen: 4.0-22.0 Reference Range: For 4 p.m.(3-5 p.m.) Specimen: 3.0-17.0 * Please interpret above results accordingly * DEXAMETHASONE (57473) Reviewed date:09/26/2024 03:55:46 PM Interpretation: Performing Lab:Armando ZAPIEN/[facility],[address] [facility] Hospital[facility] Francia Chilel MD,PhD,CUBA Notes/Report: DEXAMETHASONE 378 Baseline: Less than 20 ng/dL It has not been cleared or approved by the FDA. This assay 1 mg dexamethasone overnight: 180-550 ng/dL (8:00-10:00 AM) This test was developed and its analytical performance characteristics have been determined by [facility]. Reference Ranges for Dexamethasone: has been validated pursuant to the CLIA regulations and is used for clinical purposes. .COMPREHENSIVE METABOLIC ELAINE (37232) [facility] Reviewed date:09/07/2024 10:41:26 PM Interpretation: Performing Lab:Armando PEREZ-Ixmcfm03110 Wyatt Bond, PkxnmpYD[address] Catalina Zhou MD Notes/Report: FASTING:YES FASTING: YES [...] U/L N ALT 12 6-29 U/L N MAGNESIUM (622) Reviewed date:09/07/2024 10:41:26 PM Interpretation: Performing Lab:CHRIS [facility]-Oxdhvf75532 Wyatt Bond, MpmrxvSU[address] Catalina Zhou MD Notes/Report: FASTING:YES FASTING: YES MAGNESIUM 1.9 1.5-2.5 mg/dL N IRON AND TOTAL IRON BINDING CAPACITY (7573) Reviewed date:09/07/2024 10:41:26 PM Interpretation: Performing Lab:Armando PEREZ-Kqcyre88677 Wyatt Bond, RlcvqhAB[address] Catalina Zhou MD Notes/Report: FASTING:YES FASTING: YES IRON, TOTAL 79 40-190 mcg/dL N IRON BINDING CAPACITY 445 250-450 mc g/dL (calc) N % SATURATION 18 16-45 % (calc) N .LIPID PANEL, STANDARD (7600 ) Reviewed date:09/07/2024 10:41:26 PM Interpretation: Performing Lab:CHRIS [facility]-Sexfpl55323 Wyatt Bond, AptgfeDF[address] Catalina Zhou MD Notes/Report: FASTING:YES FASTING: YES CHOLESTEROL, TOTAL 188 <200 mg/dL N HDL CHOLESTEROL 61 > OR = 50 mg/dL N TRIGLYCERIDES 109 <150 mg/dL N LDL-CHOLESTEROL 106 H Desirable range <100 mg/dL for primary prevention; (http://education.Medgenics/faq/WZZ671) better accuracy than the Friedewald equation in the LDL-C is now calculated using the Brennan estimation of LDL-C. Baltazar LEARY et al. TAMIKA. 2013;310(19): 7620-7913 with > or = 2 CHD risk [...] 99) Reviewed date:09/07/2024 10:41:26 PM Interpretation: Performing Lab:KS, [facility]-Xigcdl20302 Wyatt Bond, FdkwcmPS[address] Catalina Zhou MD Notes/Report: FASTING:YES FASTING: YES WHITE BLOOD CELL COUNT 5.7 3.8-10.8 Thousand/uL [...] 9.8 7.5-12.5 fL N ABSOLUTE NEUTROPHILS 3922 7008-5296 cells/uL N ABSOLUTE LYMPHOCYTES 0772 393-1611 cells/uL N ABSOLUTE MONOCYTES 456 200-950 cells/uL N ABSOLUTE EOSINOPHILS 171 15-500 cells/uL N ABSOLUTE BASOPHILS 29 0-200 cells/uL N NEUTROPHILS 68.8 N LYMPHOCYTES 19.7 N MONOCYTES 8.0 N EOSINOPHILS 3.0 N BASOPHILS 0.5 N THYROID PEROXIDASE ANTIBODIE S (5079) Reviewed date:09/07/2024 10:41:26 PM Interpretation: Performing Lab:CB, [facility], Toney McculloughGnlmIL[address] Joseph Hardy Notes/Report: FASTING:YES FASTING: YES THYROID PEROXIDASE ANTIBODIES 1 <9 IU/mL .HEMOGLOBIN A1c (496) Reviewed date:09/07/2024 10:41:26 PM Interpretation: Performing Lab:Armando [facility] Catalina Zhou Notes/Report: FASTING:YES FASTING: YES HEMOGLOBIN A1c 5.4 <5.7 % of total Hgb N control in non- diabetic patients. Different (prediabetes) Currently, no consensus exists regarding use of According to [place] [employer] (ADA) metrics may apply to [...] (561) Reviewed date:09/07/2024 10:41:26 PM Interpretation: Performing Lab:Armando PEREZa10101 Vince Jeffries[address] Catalina Zhou MD Notes/Report: FASTING:YES FASTING: YES INSULIN 7.5 N Adult cardiovascular event risk category cut points (optimal, moderate, high) studies performed at [facility] Optimal < or = 18.4 Moderate NA are based on Insulin Reference Interval High >18.4 in 2021. Reference Range < or = 18.4 Risk: DHEA SULFATE (402) Reviewed date:09/07/2024 10:41:26 PM Interpretation: Performing Lab:Armando PEREZa10101 Sunitha JeffriesaKS[address] Catalina Zhou MD Notes/Report: FASTING:YES FASTING: YES DHEA SULFATE 127 19-237 mcg/dL N VITAMIN B12/FOLATE, SERUM PA YANELI (4471) Reviewed date:09/07/2024 10:41:26 PM Interpretation: Performing Lab:Armando PEREZ, NlhcegXA[address] Catalina Zhou MD Notes/Report: FASTING:YES FASTING: YES VITAMIN B12 322 856-2955 pg/mL N abnormalities due to occult B12 [...] >5.4 Reference Range Low: <3.4 Borderline: 3.4-5.4 T4, FREE (866) Reviewed date:09/07/2024 10:41:26 PM Interpretation: Performing Lab:Armando PEREZ LenexaKS[address] Catalina Zhou MD Notes/Report: FASTING:YES FASTING: YES T4, FREE 1.0 0.8-1.8 ng/dL N TSH (899) Reviewed date:09/07/2024 10:41:26 PM Interpretation: Performing Lab:Armando PEREZ, HimyncYX[address] Catalina Zhou MD Notes/Report: FASTING:YES FASTING: YES TSH 2.77 N First trimester 0.26-2.66 > or = 20 Years 0.40-4.50 Third trimester 0.43-2.91 Ranges Reference Range Second trimester 0.55-2.73 T3, FREE (44720) Reviewed date:09/07/2024 10:41:26 PM Interpretation: Performing Lab:Armando PEREZ LenexaKS[address] Catalina Zhou MD Notes/Report: FASTING:YES FASTING: YES T3, FREE 3.1 2.3-4.2 pg/mL N .VITAMIN D,25-OH,TOTAL,IA (1 7363) Reviewed date:09/07/2024 10:41:26 PM Interpretation: Performing Lab:Armando PEREZ LenexaKS[address] Catalina Zhou MD Notes/Report: FASTING:YES FASTING: YES VITAMIN D,25-OH,TOTAL,IA 25 30-100 ng/mL L Insufficiency: 20 - 29 ng/mL Deficiency: <20 ng/mL See Note 1 Vitamin D Status 25-OH Vitamin D: (This link is being provided for informational/ of D2 and D3 fractions is required, the QuestAssureD(TM) 25-OH VIT D, (D2,D3), LC/MS/MS is recommended: order For additional information, please refer to educational purposes only.) D2-supplementation and patients for whom quantitation For 25-OH Vitamin D testing on patients on Note 1 http://EchoPixel/faq/OUF759 code 21638 (patients >2yrs). Optimal: > or = 30 ng/mL TESTOSTERONE, FREE (DIALYSIS ) AND TOTAL,MS (17323) Reviewed date:09/14/2024 10:10:25 AM Interpretation: Performing Lab:Z3E, [facility]-XdlGfkgdt5145 [facility] [address], [address], [place]ysxGS[address] Daniel Martel MD,PhD Notes/Report: FASTING:YES FASTING: YES TESTOSTERONE, TOTAL, MS 24 2-45 ng/dL characteristics have been determined by [employer]. It has For additional information, please refer to (Note) used for clinical purposes. not been cleared or approved by the FDA. This assay has https://Womenalia.com/faq/VHZ131 (This link is being provided for informational/educational purposes only.) been validated pursuant to the CLIA regulations and is This test was developed and its analytical performance TESTOSTERONE, FREE 1.5 0.1-6.4 pg/mL characteristics have been determined by [employer]. It has [phone] used for clinical purposes. not been cleared or approved by the FDA. This assay has med [facility] (Note) [facility] [address] This test was developed and its analytical performance MDF been validated pursuant to the CLIA regulations and is [address] [facility] [address] Daniel Martel MD, PhD ACTH, PLASMA (211) Reviewed date:09/14/2024 10:10:25 AM Interpretation: Performing Lab:TRICIA, [facility] [id number] [facility] , HjwqodilmIT[address] Pilo Navas M.D.,PhD Notes/Report: FASTING:YES FASTING: YES ACTH, PLASMA 23 6-50 pg/mL Reference range applies only to specimens collected between 7am-10am. VITAMIN B12/FOLATE, SERUM PA YANELI (2345) Reviewed date:10/31/2024 08:59:29 PM Interpretation: Performing Lab:Armando PEREZ-Nereia00092Gabe Bond, XbzunkVD[address] Catalina Zhou MD Notes/Report: VITAMIN B12 289 105-7838 pg/mL N FOLATE, SERUM 8.8 N Reference Range Normal: >5.4 Borderline: 3.4-5.4 Low: <3.4 TSH (899) Reviewed date:10/31/2024 08:59:30 PM Interpretation: Performing Lab:Armando PEREZ-Marcelino Bond, BhtukqRS[address] Catalina Zhou MD Notes/Report: TSH 1.77 N Ranges > or = 20 Years 0.40-4.50 Second trimester 0.55-2.73 First trimester 0.26-2.66 Third trimester 0.43-2.91 Reference Range T3, FREE (65717) Reviewed date:10/31/2024 08:59:30 PM Interpretation: Performing Lab:Armando PEREZ-Lkwuyp07470Vince Orourke[address] Catalina Zhou MD Notes/Report: T3, FREE 2.9 2.3-4.2 pg/mL N .VITAMIN D,25-OH,TOTAL,IA (1 7306) Reviewed date:10/31/2024 08:59:30 PM Interpretation: Performing Lab:Armando PEREZ-Vince Grullon[address] Catalina Zhou MD Notes/Report: VITAMIN D,25-OH,TOTAL,IA 52 30-100 ng/mL N Insufficiency: 20 - 29 ng/mL D2-supplementation and patients for whom quantitation of D2 and D3 fractions is required, the NextCloudureD(TM) (This link is being provided for informational/ http://education.PlayFab[employer] Inc./faq/YNW083 Vitamin D Status 25-OH Vitamin D: 25-OH VIT D, (D2,D3), LC/MS/MS is recommended: order code 81575 (patients >2yrs). educational purposes only.) Note 1 Deficiency: <20 ng/mL See Note 1 For 25-OH Vitamin D testing on patients on For additional information, please refer to Optimal: > or = 30 ng/mL .COMPREHENSIVE METABOLIC ELAINE (01708) [facility] Reviewed date:10/31/2024 08:59:29 PM Interpretation: Performing Lab:CHRIS [facility] [place]-Lrayyd59453 Wyatt Bond, QhfiqeCB[address] Catalina Zhou MD Notes/Report: GLUCOSE 95 65-99 [...] U/L N ALT 13 6-29 U/L N T4, FREE (866) Reviewed date:10/31/2024 08:59:29 PM Interpretation: Performing Lab:Armando PEREZ-Wflkck12701 Wyatt Bond, RsbkdyRC[address] Catalina Zhou MD Notes/Report: T4, FREE 1.2 0.8-1.8 ng/dL N Reason For Referral No Information Medications Medication SIG (Take, Route, Frequency, Duration) Notes Start Date End Date Status clonazePAM 1 MG Tablet 1 tablet Orally O nce a day Active Doxepin HCl 50 MG Capsule 1 capsule at b edtime Orally Once a day Active dexAMETHasone 1 MG Tablet 1 tablet Orall y at 10 pm night before 8 am cortisol; Duration: 1 days 12/05/2024 Active Fluoxetine Active Ondansetron HCl 4 MG Tablet 1 TABLET ORA LLY TWICE DAILY NEEDED NAUSEA; Duration: 60 Active 5 1.5-30 MG-MCG Tablet 1 tablet Orally Once a day Active Chetek Carbonate 150 MG Capsule 1 capsule Orally Twice a day Active Tremfya 100 MG/ML Solution Prefilled Syringe 1 mL Subcutaneous Activ e Spravato (84 MG Dose) Active busPIRone HCl 10 MG Tablet 1 tablet Oral ly 3 times a day Active Social History Section Notes: tobacco: no alcohol: yes, occassionally caffeine: yes, just started drinking coffee tobacco: no alcohol: yes, occassionally caffeine: yes, just started drinking coffee tobacco: no alcohol: yes, occassionally caffeine: yes, just started drinking coffee Problems Problem Type SNOMED Code ICD Code Onset Dates Problem Status W/U Status Risk Notes Problem Autoimmune thyroiditis (85184624) Autoimmune thyroiditis (E06.3) Active confirmed Problem Vitamin D deficiency (92642437) Vitamin D deficiency, unspecified (E55.9) Active confirmed Problem Irregular menstruation (41690790) Irregular menstruation, unspecified (N92.6) Active confirmed Problem Obese class II (093339164455503 ) Body mass index [BMI] 35.0-35.9, adult (Z68.35) Active confirmed Problem Polycystic ovary syndrome (disorder) (988316584) PCOS (polycystic ovarian syndrome) (E28.2) Active confirmed Problem Severe obesity (67191436475791) Severe obesity (E66.01) Active confirmed Vital Signs Heart Rate 94 /min 12/05/2024 Height-cm 170.18 cm 12/05/2024 Oximetry 97 % 12/05/2024 Blood pressure diastolic 78 mm Hg 12/05/2024 Weight-kg 100.7 kg 12/05/2024 Height 67 in 12/05/2024 Blood pressure systolic 123 mm Hg 12/05/2024 Weight 222.0 lbs 12/05/2024 BMI 34.77 kg/m2 12/05/2024 Encounters Encounter Location Date Provider Diagnosis [facility] [address] [facility] [place] [address] 11/06/2024 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 Ziegler [address] [place] [id number] 08/28/2024 Bernarda Ziegler Body mass index [BMI ] 35.0-35.9, adult Z68.35 ; Obesity, class 2 E66.812 ; Irregular menstruation, unspecified N92.6 ; Vitamin D deficiency, unspecified E55.9 and Other fatigue R53.[address] Ziegler [address] [place] [address] 10/09/2024 Bernarda Ziegler Vitamin D deficiency , unspecified E55.9 ; Body mass index [BMI] 35.0-35.9, adult Z68.35 ; Vitamin B12 deficiency E53.8 ; PCOS (polycystic ovarian syndrome) E28.2 ; Dietary counseling and surveillance Z71.3 and Autoimmune thyroiditis E06.[address] Ziegler [address] [place] [phone] 11/06/2024 Bernarda Ziegler Autoimmune thyroidit is E06.3 ; PCOS (polycystic ovarian syndrome) E28.2 and Dietary counseling and surveillance Z71.[address] Ziegler [address] [place] [phone] 12/05/2024 Bernarda Ziegler Autoimmune thyroidit is E06.3 ; PCOS (polycystic ovarian syndrome) E28.2 ; Body mass index [BMI] 35.0-35.9, adult Z68.35 and Dietary counseling and surveillance Z71.3 Assessments Encounter Date Diagnosis (ICD Code) Assessment Notes Treatment Notes Treatment Clinical Notes Section Notes 08/28/2024 Body mass index [BMI] 35.0-35.9, adult (ICD-10 - Z68.35) 08/28/2024 Obesity, class 2 (ICD-10 - E66.812) 10/09/2024 Vitamin D deficiency, unspecified (ICD-10 - E55.9) 10/09/2024 Body mass index [BMI] 35.0-35.9, adult (ICD-10 - Z68.35) 11/06/2024 Autoimmune thyroiditis (ICD-10 - E06.3) 11/06/2024 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 12/05/2024 Dietary counseling and surveillance (ICD-10 - Z71.3) [...] panel- Dexamethasone tablet to be sent to [facility] in [place]- Patient instructed to take dexamethasone on the last day of placebo week, not during estrogen week 2. Psoriatic Arthritis- Continue current treatment regimen for psoriatic arthritis (injection every 8 weeks)- Maintain follow-up with dielectric embossing machine operator for psoriasis management 3. Sleep Disturbance- Reassess [...] examination and/or evaluation, counseling and educating the patient/family/careg iver, ordering medications, tests, or procedures, referring and communicating with other health rn home care, documenting clinical information in the electronic or other health record, independently interpreting results and communicating results to the patient/family/careg iver and care coordinating patient plan. Patient alert [...] examination and/or evaluation, counseling and educating the patient/family/careg iver, ordering medications, tests, or procedures, referring and communicating with other health rn home care, documenting clinical information in the electronic or other health record, independently interpreting results and communicating results to the patient/family/careg iver and care coordinating patient plan. Patient alert [...] authorization- Follow up in one month Nutritional ManagementAssessment : Patient is attempting to follow a gluten-free [...] gluten, especially packaged and processed forms Medication ManagementAssessment : Patient reports adverse effects from an unspecified [...] examination and/or evaluation, counseling and educating the patient/family/careg iver, ordering medications, tests, or procedures, referring and communicating with other health rn home care, documenting clinical information in the electronic or other health record, independently interpreting results and communicating results to the patient/family/careg iver and care coordinating patient plan. Patient alert and oriented x 4 and aware of discussion noted above and in agreeance to plan in management of autoimmune thyroiditis, PCOS and weight management and potential for BENSON. 12/05/2024 Deepika Aguero, a patient with a history of weight management issues, presents with concerns about medication side effects and weight regain after previous successful weight loss. ObesityAssessment: Patient reports previous weight loss success with a leaky gut program but has since regained weight. Current management includes a gluten-free diet, regular exercise (30-45 minutes daily), and consumption of fruits, vegetables, and lean meats. Patient tried tirzepatide but experienced severe gastrointestinal side effects, including diarrhea and abdominal discomfort, leading to discontinuation. Previous trials of metformin and phentermine were unsuccessful due to stimulant-related side effects. Considering the patient's diet and exercise regimen, further investigation into potential underlying causes of weight gain is warranted.Plan:- Order additional cortisol workup: - 24-hour urine cortisol - Salivary cortisol - Repeat dexamethasone suppression test- Recommend high-quality probiotic and microbiome supplement for digestive health and gut inflammation reduction- Advise against using pjip-ksf-vjshojo fiber powders from [employer] or [facility]- Suggest finding a good protein shake (e.g., from [facility] or [employer])- Recommend using the [employer] melva to scan and rate food products for preservatives and processing- Provide samples of kiwi-strawberry powder supplement for improved bowel function- Consider trial of semaglutide (Wegovy) pending further workup and insurance coverage- Follow up to review test results and reassess treatment plan Suspected Sleep DisorderAssessment: Patient reports poor sleep and has recently undergone a home sleep study. Results are pending and will be available at an upcoming appointment on Sunday. There is a possibility of sleep apnea, which could potentially qualify the patient for insurance coverage of weight loss medications.Plan:- Await results of recent home sleep study- Reassess treatment options based on sleep study findings, including potential for weight loss medication coverage if sleep apnea is diagnosed Spent 25 minutes preparing to see the patient (ex review of tests/chart), obtaining and / or reviewing separately obtained history, performing a medically appropriate examination and/or evaluation, counseling and educating the patient/family/careg iver, ordering medications, tests, or procedures, referring and communicating with other health rn home care, documenting clinical information in the electronic or other health record, independently interpreting results and communicating results to the patient/family/careg iver and care coordinating patient plan. Patient alert and oriented x 4 and aware of discussion noted above and in agreeance to plan in management of weight management, obesity, concern for hypercortisolism and BENSON. Plan Of Treatment No Information Insurance Providers Payer Name Payer Address Payer Phone Subscriber Number Group Number Insured Name Patient Relationship to Insured Coverage Start Date Coverage End Date [place] [address] [place] [address] [id number] More [place] Self - patient is the insured Medical (General) History Medical History History ICD Code depression anxiety PCOS Surgical History Surgery Date(Month/Year) ACL reconstruction 2005 foot surgery 2021
== END 2025-03-24 14:26 | disposition home or self-care (01) ==
DX: R05.9 Cough, unspecified (principal)
CPT/HCPCS: 71046